=== PATIENT | male | born 1950 | race Caucasian/White ===

== ENCOUNTER 2023-10-16 13:48 | Outpatient (AMB) | payer MEDICARE, SELFPAY ==
--- NOTE | 2023-10-16 13:51 | MHC.OFFVIS ---
Intake Vital Signs 10/16/23 13:59 Weight 200 lb BP 132/80 Blood Pressure Location Rt brachial Position Sitting Pulse 80 Intake Visit Reasons: Chronic perforated diverticulitis Intake Note: Patient referred by PCP Dr. Kelley for Chronic perforated diverticulitis. Patient c/o: denies constipation, diarrhea. Abd/pel[place] [facility] [place] On Site Services Specialist Required: No Accompanied by: Spouse Allergies No Known Allergies Allergy (Verified 10/16/23 13:55) HPI HPI Comments History of Present Illness Details Patient presents with because of chronic diverticulitis symptoms. He has had approximately 15 years of on and off bouts of diverticulitis. He has had 3 [address] admissions for this at [facility]. Approximately 5 weeks ago patient had a CT scan of the abdomen pelvis which demonstrated localized perforated diverticulitis with contained collection. In the meantime, patient has had improvement of his symptoms. He has tolerating a diet. He is passing flatus and stool. He thinks the caliber of his stool may have decreased in size. He has not have any symptoms consistent with pneumaturia or fecaluria. 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 No other abdominal surgeries. Patient had colonoscopy approximately 3 years ago at [place]. We will attempt to obtain those results. Chart was reviewed patient evaluated, including September 25 CT scan from normal [facility] Medical History (Updated 10/16/23 @ 13:57 by SOO Mesa) Splenic cyst Right groin hernia Left groin hernia Surgical History (Updated 10/16/23 @ 14:17 by Alfred Crain MD) History of hernia repair Social History (Updated 10/16/23 @ 13:58 by SOO Mesa) Patient Tobacco Use Status: Former Tobacco user Quit Date: working on quiting Physical Exam Vital Signs: Last Vital Signs Pulse 80 10/16/23 13:59 BP 132/80 10/16/23 13:59 GI Other: Abdomen soft. Midline incision/ scar from prior splenectomy. Abdomen otherwise soft and benign. Assessment & Plan Assessment & Plan (1) Hx of diverticulitis of colon: Code(s): Z87.19 - Personal history of other diseases of the digestive system Plan Current plan is to repeat a CT scan approximately 6 weeks from his original to assess the severity or healing process of his perforated diverticulitis. We will also obtain prior colonoscopy results. Patient will see me after the above-mentioned study. All questions answered. Coding Level of Care Code New Pt Level 4 (20738) Diagnoses Hx of diverticulitis of colon Z87.19
[2023-10-16 13:59] VITALS: BP 132/80; PULSE 80
== END 2023-10-16 14:15 | disposition home or self-care (01) ==
PROVIDERS: PCP Internal Medicine; Referring Provider Internal Medicine; Visit Provider Surgery
DX: Z87.19 Personal history of other diseases of the digestive system (principal)
CPT/HCPCS: 99204

== ENCOUNTER → 2023-10-16 13:48 | Outpatient (BNVA) | payer MEDICARE, SELFPAY | PROVIDERS: PCP Internal Medicine; Referring Provider Internal Medicine; Visit Provider Surgery | DX: K57.20 Diverticulitis of large intestine with perforation and abscess without bleeding (principal); Z87.19 Personal history of other diseases of the digestive system | CPT/HCPCS: 99202 ==

== ENCOUNTER 2023-11-05 07:42 | Outpatient (REF) | payer MEDICARE, SELFPAY ==
[2023-11-05 09:43] LABS: Blood Urea Nitrogen 14 mg/dL (9-16); Estimated Glomerular Filt Rate > 60
== END 2023-11-05 07:43 | disposition home or self-care (01) ==
LOC: HO.LAB 07:42
PROVIDERS: Visit Provider Surgery
DX: Z87.19 Personal history of other diseases of the digestive system (principal)
CPT/HCPCS: 36415; 82565; 84520

== ENCOUNTER 2023-11-06 11:43 | Outpatient (REF) | payer MEDICARE, SELFPAY ==
--- NOTE | ~2023-11-06 | CT_ITS ---
EXAMINATION: CT ABDOMEN AND PELVIS WITH CONTRAST CLINICAL INFORMATION: Follow-up perforated diverticulitis with abscess. 6 weeks postop. COMPARISON: None available. TECHNIQUE: Multidetector volumetric images were obtained from the superior aspect of the liver through the pubic symphysis following administration 85 mL of Omnipaque 350 intravenous contrast. Sagittal and coronal reformatted images were obtained on the technologist's workstation. Oral contrast: No This CT examination was performed using dose optimization techniques as appropriate, variously including the following: *Automated exposure control *Adjustment of mA and/or kV according to patient size (this includes techniques or standardized protocols for targeted exams where dose is matched to indication/reason for exam; i.e. extremities or head) *Use of iterative reconstruction technique DLP: 415 mGy-cm FINDINGS: LUNG BASES: No pleural or pericardial effusion. LIVER, GALLBLADDER, AND BILIARY TREE: The liver is normal in size and contour. Scattered hepatic cysts requiring no further imaging follow-up. Biliary ductal dilatation is present. The gallbladder is unremarkable with no evidence of radiopaque gallstones, gallbladder wall thickening, or obvious pericholecystic inflammatory changes. PANCREAS: No ductal dilatation. SPLEEN: Not enlarged. ADRENAL GLANDS: Nodular thickening of the adrenal glands. KIDNEYS AND URETERS: The kidneys are symmetric in size and enhancement. Left renal cysts for carcinoma further imaging follow-up. 2 mm nonobstructing calculus midpole right kidney. Upper to midpole nonobstructing left renal calculi with the largest measuring 1.1 x 0.9 cm. No hydronephrosis or perinephric fluid collection. BLADDER: Mild diffuse bladder wall thickening. No bladder calculus. There is a 1.2 x 0.9 cm calculus impacted in the right ureterovesical junction. Multiple bladder diverticula. GASTROINTESTINAL TRACT: Marked irregular wall thickening of the mid sigmoid colon with evidence of extensive underlying diverticular disease. There is stellate reaction of the surrounding fat possibly representing scarring. Mild pericolonic stranding. Possible intramural abscess measuring approximately 3.3 x 1.2 x 1.9 cm. No evidence of fistulous communication. No small bowel obstruction. Appendix is within normal limits. The stomach is underdistended. All ABDOMINAL WALL: No significant hernia is appreciated. LYMPH NODES: No bulky lymphadenopathy. VASCULAR: Normal caliber abdominal aorta. PELVIC VISCERA: Unremarkable. OSSEOUS STRUCTURES: No destructive bone lesions. CT/CT abdomen pelvis w IV con IMPRESSION: Marked irregular wall thickening of the sigmoid colon with possible intramural abscess measuring 3.2 x 1.2 x 1.9 cm. There is stellate reaction within the surrounding fat possibly representing scarring. Evaluation is limited by the lack of comparison studies. Nephrolithiasis without hydronephrosis. 1.2 x 0.9 cm calculus impacted in the right ureterovesical junction. Mild bladder wall thickening. Multiple bladder diverticula.
[2023-11-06] MEDS: iohexoL 350 MG/ML 100 ML INFUS..BTL IV (14:26)
[2023-11-06] MEDS: Barium Sulfate Oral (Vanilla) 450 ML ORAL.SUSP 900 ML PO (14:27)
== END 2023-11-06 11:44 | disposition home or self-care (01) ==
LOC: HO.CT 11:43
PROVIDERS: PCP Internal Medicine; Visit Provider Surgery
DX: Z87.19 Personal history of other diseases of the digestive system (principal)
CPT/HCPCS: 74177; Q9967

== ENCOUNTER 2023-11-13 13:00 | Outpatient (AMB) | payer MEDICARE, SELFPAY ==
--- NOTE | 2023-11-13 13:08 | A.OFFVIS_ITS ---
Intake Vital Signs 11/13/23 13:13 Weight 200 lb BP 146/87 H Blood Pressure Location Rt brachial Position Sitting Pulse 76 Intake Visit Reasons: chronic diverticulitis symptoms, CT results Intake Note: Patient here to f/u diverticulitis. Would like to discuss abd ct results. Previous colonoscopy at [facility]. Operative report available for review. Patient c/o: reports no changes or concerns. Roll On Worker Required: No Accompanied by: Spouse Allergies No Known Allergies Allergy (Verified 11/13/23 13:12) Medication List - Last Reconciled 11/13/23 by Alfred Crain MD pantoprazole 40 mg PO DAILY HPI HPI Comments History of Present Illness Details Patient presents with for follow-up. CT scan demonstrates improving diverticulitis. Patient is completely asymptomatic. He has tolerating a diet. Having regular bowel habits. He does have history of occasional constipation. Patient had colonoscopy on 06/16 which only demonstrated diverticular disease. This was done at [facility]. Patient has had prior exploratory laparotomy for a splenic issue in . He has had 3 inguinal hernia repairs. [facility] Medical History Splenic cyst Right groin hernia Left groin hernia Surgical History History of hernia repair (06/28/22) Social History Patient Tobacco Use Status: Former Tobacco user Quit Date: working on quiting Physical Exam Vital Signs: Last Vital Signs Pulse 76 11/13/23 13:13 BP 146/87 H 11/13/23 13:13 Chest Other: Chest breath sounds bilaterally, HS 1 in 2 GI Other: Abdomen is soft. Laparotomy scar well healed. Abdomen otherwise benign Assessment & Plan Assessment & Plan (1) Hx of diverticulitis of colon: Code(s): Z87.19 - Personal history of other diseases of the digestive system (2) Diverticulitis of sigmoid colon: Code(s): K57.32 - Diverticulitis of large intestine without perforation or abscess without bleeding Plan Patient and significant other would like for him to undergo elective resection for his recurrent sigmoid diverticulitis. Risks, benefits, alternatives of the procedure, exploratory laparotomy, sigmoid resection were extensively reviewed and included but not limited to bleeding, infection, recurrence of disease, numbness, pain, scarring, possible diversion ostomy and the patient wishes to proceed. All questions answered. Arrangements were made for this. Patient will undergo bowel prep with oral antibiotics day prior Coding Level of Care Code Est Pt Level 5 (61691) Diagnoses Hx of diverticulitis of colon Z87.19 Diverticulitis of sigmoid colon K57.32
[2023-11-13 13:13] VITALS: BP 146/87; PULSE 76
== END 2023-11-13 13:35 | disposition home or self-care (01) ==
PROVIDERS: PCP Internal Medicine; Visit Provider Surgery
DX: Z87.19 Personal history of other diseases of the digestive system (principal); K57.32 Diverticulitis of large intestine without perforation or abscess without bleeding
CPT/HCPCS: 99214

== ENCOUNTER → 2023-11-13 13:00 | Outpatient (BNVA) | payer MEDICARE, SELFPAY | PROVIDERS: PCP Internal Medicine; Visit Provider Surgery | DX: K57.32 Diverticulitis of large intestine without perforation or abscess without bleeding (principal); Z87.19 Personal history of other diseases of the digestive system | CPT/HCPCS: 99212 ==

== ENCOUNTER 2023-11-26 08:47 | Outpatient (AMB) | payer MEDICARE, SELFPAY ==
--- NOTE | 2023-11-26 08:51 | A.OFFVIS_ITS ---
Intake Visit Reasons: Large distal right ureteric stone Intake Note: New Patient is Present for Ureteric Stone Urology Medication: None Antibiotic Allergies:None Blood Thinners:None Patient states he had kidney stone 6 months ago Allergies No Known Allergies Allergy (Verified 11/26/23 08:54) HPI Comments Details: Jose Alejandro is a pleasant male. He is a patient of Dr. Kelley. He is seen for the following urologic conditions - nephrolithiasis Here for assessment of recently evaluated distal right ureteric stone Planned upcoming diverticular surgery Nephrolithiasis Recurrent Imaging - 10/19 CT 1.2 x 0.9 cm calculus impacted in the right ureterovesical junction, left stone 8 mm Recommend intervention with ureteroscopy laser lithotripsy PFSH Medical History Splenic cyst Right groin hernia Left groin hernia Surgical History History of hernia repair (06/28/22) Social History Patient Tobacco Use Status: Former Tobacco user Quit Date: working on quiting Review of Systems Const Denies chills and Denies fever(s) Card Reports no additional complaints and Denies syncope Resp Denies cough GI Denies abdominal pain and Denies heartburn Reports as per HPI and Denies change in libido Neuro Denies syncope Psych Denies change in libido Endo Denies change in libido Physical Exam Const General: cooperative, healthy appearing, comfortable and no acute distress Orientation/consciousness: patient oriented x3 HEENT Face and sinus: Yes normal facial exam Mouth: moist mucous membranes Neck Neck: Yes normal visual inspection, Yes full ROM and Yes trachea midline Chest Chest palpation & inspection: normal inspection of the chest Resp Effort & Inspection: normal respiratory effort, able to speak in complete sentences and no respiratory distress GI Inspection: Yes normal to inspection Back/Spine/Pelvis Cervical Spine: normal cervical lordosis Thoracic/Lumbar Spine: thoracic and lumbar spine normal to inspection Skin General skin exam: no rashes or lesions noted Neuro General: patient oriented x3, gait normal, tone normal and moves all extremities Extrem General: Yes normal to inspection and Yes capillary refill normal Assessment & Plan Assessment & Plan (1) Nephrolithiasis: Code(s): N20.0 - Calculus of kidney Category: Medical Plan Ureteroscopy We discussed the nature of the decision and reasonable alternatives for performing ureteroscopy. Options such as medical therapy were discussed. Interventions include chemical dissolution, ESWL, ureteroscopy with laser lithotripsy and stent placement, PCNL. The relative uncertainties and benefits related to each alternate procedure were adequately discussed. General surgical risks including, but not limited to - pain, bleeding, infection, myocardial infarction, pulmonary embolus, deep vein thrombosis and cerebrovascular accident which may result in further hospitalization were discussed. Full disclosure of the procedure as well as all major risks, benefits and complications were discussed including but not limited to damage to the urethra, bladder and kidney infection, damage to the ureter, stent migration or malposition, scarring to the renal pelvis, remnant stone fragments, subsequent stone passage with need for secondary procedures. The overall secondary procedure rate is approximately 10-15%. The overall clearance rate is approximately 90-95%. Success of the procedure in the short-term does not necessarily guarantee that long-term success will be maintained. Suitable follow up will need to be maintained. The patient showed understanding of discussion and wishes to proceed with - cystoscopy, retrograde, ureteroscopy, possible lithotripsy/stone basketing and stent on the right side Patient Instructions: Imaging studies, laboratory and physical exam results were discussed and reviewed in detail. No major barriers to patient understanding were identified. An opportunity to ask questions regarding the treatment plan was provided. All questions were answered. The patient expressed understanding and agreement with the above treatment plan. The patient is aware they should contact our office by phone for worsening of their current condition or the appearance of new urologic symptoms. Compliance is encouraged with any medications and followup testing that is ordered. It is a privilege to participate in the urologic care of your patient. If you have any questions or concerns regarding treatment for the above conditions, or other urologic issues, please do not hesitate to contact me. The office telephone contact is [phone]. This note is constructed using voice recognition software. While every effort has been made to ensure accuracy zipper slide attacher errors may have been included. Yours sincerely, Dr Thomas Sanon MD, [facility] - Urology Providers of Expert, Compassionate Care for the Genitourinary System Coding Level of Care Code New Pt Level 4 (57050) Complex EM visit Add On G2211 Diagnoses Nephrolithiasis N20.0
== END 2023-11-26 09:16 | disposition home or self-care (01) ==
PROVIDERS: PCP Internal Medicine; Visit Provider Urology
DX: N20.0 Calculus of kidney (principal)
CPT/HCPCS: 99204; G2211

== ENCOUNTER → 2023-11-26 08:47 | Outpatient (BNVA) | payer MEDICARE, SELFPAY | PROVIDERS: PCP Internal Medicine; Visit Provider Urology | DX: N20.0 Calculus of kidney (principal) | CPT/HCPCS: 99202 ==

== ENCOUNTER 2023-12-02 11:16 | Day surgery (SDC) | payer MEDICARE, SELFPAY ==
--- NOTE | 2023-11-29 10:53 | HO.ANESPROP2 ---
Documented by User: Charito Bojorquez NP 11/29/23 10:54 HPI - Anesthesia Eval Consult details Narrative: 73yo M for Cystoscopy, Ureteroroscopy, Retro, Laser with stent placement PMFSH Active Problems Active Problems: All Active Problems Nephrolithiasis (Acute) Diverticulitis of sigmoid colon (Acute) Hx of diverticulitis of colon (Acute) Past Medical History Medical History Heartburn Splenic cyst Right groin hernia Left groin hernia Surgical History Surgical History Hx of right inguinal hernia repair History of hernia repair (06/28/22) Social History Social History Patient Tobacco Use Status: Current everyday Tobacco user Tobacco use type: Cigarette Cigarettes Per Day: 2 Use of substances other than those prescribed or required for medical reasons: No Are you DNR?: No Advance Directives: No Advance Directives Information Provided: Yes Meds Allergies Allergy/AdvReac Type Severity Reaction Status Date / Time No Known Allergies Allergy Verified 12/02/23 13:34 Home Medications ?Medication ?Instructions ?Recorded ?Confirmed ?Last Taken ?Type pantoprazole 40 mg tablet,delayed 40 mg PO DAILY 10/16/23 12/02/23 Unknown History release Exam Narrative Narrative: EKG 08/2023 SR with PVC Assessment and Plan Assessment Anesthesia Assessment: Chart Reviewed Documented by User: Marie Varner MD 12/02/23 15:01 PMFSH Past Medical History Medical History Heartburn Splenic cyst Right groin hernia Left groin hernia Surgical History Surgical History Hx of right inguinal hernia repair History of hernia repair (06/28/22) History of Problems with Anesthesia: No Social History Social History Patient Tobacco Use Status: Current everyday Tobacco user Tobacco use type: Cigarette Cigarettes Per Day: 2 Use of substances other than those prescribed or required for medical reasons: No Are you DNR?: No Advance Directives: No Advance Directives Information Provided: Yes Meds Allergies Allergy/AdvReac Type Severity Reaction Status Date / Time No Known Allergies Allergy Verified 12/02/23 13:34 Home Medications ?Medication ?Instructions ?Recorded ?Confirmed ?Last Taken ?Type pantoprazole 40 mg tablet,delayed 40 mg PO DAILY 10/16/23 12/02/23 Unknown History release Exam Airway Mallampati Class: III TM Dist: >3cm Neck ROM: Full Loose/Missing/Broken Teeth: No Heart: RRR Lungs: CTA Assessment and Plan Assessment Anesthesia Assessment: Anesthesia Plan Discussed Final Anesthetic Review History of Problems with Anesthesia: No NPO: Yes ASA Class: II Final Preanesthetic Review: Meds/Allgs Chart Reviewed, Consent Obtained/Reviewed and Anes Risks/Benef Reviewed Patient Risk: Low Procedure Risk: Low Anesthetic Plan Anesthetic Plan: GA Disposition: Standard PACU
[2023-12-02] VITALS (7 sets, daily range): BP systolic 118–145; BP diastolic 57–84; PULSE 77–89; RESP 12–19; TEMP 36.3–36.6; O2SAT 93–98; BMI 26.0
--- NOTE | ~2023-12-02 | FL_ITS ---
EXAMINATION: Intraoperative fluoroscopy CLINICAL INFORMATION: Cystoscopy, stent, laser COMPARISON: CT abdomen pelvis 11/06/2023 TECHNIQUE: Intraoperative fluoroscopy was provided for use by Dr. Sanon. A total of 3 images were saved to PACS. A radiologist was not present during imaging. Today's dictation is only for administrative purposes to document intraoperative fluoroscopic usage. TOTAL FLUOROSCOPIC TIME: 27 seconds DAP: 9.22 mGy FL/FL guidance in OR FINDINGS~\^^ Intraoperative fluoroscopy provided for use by Dr. Sanon. Please see operative note for detailed findings.
[2023-12-02] MEDS: Lactated Ringers 1,000 ML 100 ML IVCONT (13:51)
--- NOTE | 2023-12-02 15:31 | MHC.SHP ---
Pre-Procedural Eval Section A - 24 Hr Update-Section A only Date of Service: 12/02/23 The patient is an INPATIENT: No Changes since office visit: No Cold of Flu in the past 2 weeks, No New Medical Problems, No Changes in Medication and No Patient answered all questions The patient has been examined within 24 hours of the surgical procedure. The History & Physical has been completed within 30 days and I have reviewed it.: Yes Section B - Complete if H&P > 30 days Chief Complaint: Calculus of kidney Allergies: Allergies Allergy/AdvReac Type Severity Reaction Status Date / Time No Known Allergies Allergy Verified 12/02/23 13:34 Review of Systems Sugical H&P ROS: Negative: Constitution, Cardiovascular, Respiratory, Neurological, Psychiatric, Hem-Onc, Allergic/Immunologic, Gastrointestinal, Genitourinary, Musculoskeletal, Integumentary, Endocrine and Eyes/Ears/Nose/Throat Exam Surgical H&P Exam: Normal: HEENT, Normal: Heart, Normal: Lungs, Normal: Extremities, Normal: Abdomen, Normal: Skin and Normal: Neurological Plan Diagnosis/Plan: Unchanged (Distal right ureteric stones, cystoscopy, right retrograde, right ureteroscopy with laser lithotripsy and stent) I have reviewed the history and physical and performed a pertinent physical examination on my patient. No changes have occurred unless specified. Time Spent With Patient Time: Total time managing care of this patient today ____ minutes.
--- NOTE | 2023-12-02 16:51 | P.OP_ITS ---
Operative Note Operative Note Date of Service: 12/02/23 Narrative: PreOperative Diagnosis: Distal right ureteric stones x 2 - 10 mm and 5 mm Post Operative Diagnosis: Distal right ureteric stones Procedure: - cystoscopy, right retrograde - right dilatation of ureteric orifice under fluoroscopy - right ureteroscopy, laser lithotripsy, stone basketing - modifier 22 100% longer than typical 45 minutes - right stent placement Surgeon: Dr Thomas Sanon Anesthesia: General Indications for procedure: Distal right ureteric stone with proximal hydroureteronephrosis detected during evaluation for colorectal cancer Procedure: After informed consent was verified the patient was brought to the operating room and placed in a supine position. Anesthesia was administered per protocol. The patient was placed in a modified dorsal lithotomy position and prepped and draped in a sterile fashion. Safety pause time-out and side of surgery were confirmed. Images were available for review. Antibiotic administration confirmed. A 22 Palestinian cystoscope was inserted per urethra. The urethra was without aabnormality. The bladder was normal in its entirety. Both ureteric orifices were seen in normal position. The right ureteric orifice was cannulated and a retrograde examination was performed. Filling defects seen in distal right ureter with proximal hydroureteronephrosis . A Sensor guidewire was placed up to the level of the renal pelvis under fluoroscopy. The rigid cystoscope was removed. A Denzel dilator was placed over the Sensor guidewire and used to dilate the ureteric orifice under fluoroscopy. The dilator was removed. The semi rigid ureteral scope was placed alongside the Sensor guidewire. Using a 365 micro holmium laser fiber the stone was broken into small pieces using a combination of hammer and dusting techiques. Stone fragments were removed from the ureter using a 0 tip basket 2.4 Palestinian basket. The stone was extremely hard and took 100% longer than typical for them both to be broken up. This is approximately 40 minutes. Once the fragments were removed a decision was made to place a ureteric stent. Based on the height of the patient a 6 Fr x variable length stent was used. The rigid cystoscope was backloaded over the wire and advanced into the bladder. A 6 Palestinian by variable length cm double-J stent was placed into the renal pelvis and bladder under a combination of fluoroscopy and direct visualization. The bladder was emptied. The patient tolerated the procedure well and was extubated in the operating room. They were transferred in stable condition to the recovery area. Pathology: stones Drains: Double J stent as described above
[2023-12-02] MEDS: Phenazopyridine HCL 100 MG TABLET PO (16:59)
[2023-12-24 16:17] LABS: Stone Source RIGHT KIDNEY STONE
== END 2023-12-02 17:39 | disposition home or self-care (01) ==
PROVIDERS: PCP Internal Medicine; Visit Provider Urology
PROC: (CPT 52356; principal; 2023-12-02 13:20)
DX: N13.2 Hydronephrosis with renal and ureteral calculous obstruction (principal); Z87.442 Personal history of urinary calculi; K21.9 Gastro-esophageal reflux disease without esophagitis; Z79.899 Other long term (current) drug therapy; F17.210 Nicotine dependence, cigarettes, uncomplicated; Z98.890 Other specified postprocedural states
CPT/HCPCS: 52356; 82365; 88300; C1758; C1769; C2617; J0131; J1956; J2704; J3010; Q9967

== ENCOUNTER → 2023-12-02 11:16 | Outpatient (BNV) | payer MEDICARE, SELFPAY | PROVIDERS: PCP Internal Medicine; Visit Provider Urology | DX: N20.1 Calculus of ureter (principal) | CPT/HCPCS: 52356; 74420 ==

== ENCOUNTER 2023-12-12 11:46 | Inpatient (IN) | payer MEDICARE, SELFPAY ==
[2023-12-04 13:16] VITALS: BP 139/78; PULSE 82; RESP 20; O2SAT 97; BMI 26.0
--- NOTE | 2023-12-04 13:27 | HO.ANESPROP2 ---
Documented by User: Charito Bojorquez NP 12/10/23 13:53 HPI - Anesthesia Eval Consult details Narrative: 73yo M Left Cystoscopy Ureteral Stent Placement (Dr Sanon), Exploratory Laparotomy,sigmoid resection,lithotomy, Sigmoidoscopy Flexible, 12/11/23 No recent illness, season allergies with nasal spray No CP/SOB with walking/yard work s/p cysto, etc 11/2023 with GA-LMA 4 PVCs with PCP eval. Pt reports resolved palps GERD. PPI controls Smoker. No COPD/inhaler PMFSH Active Problems Active Problems: All Active Problems Nephrolithiasis (Acute) Diverticulitis of sigmoid colon (Acute) Hx of diverticulitis of colon (Acute) Past Medical History Medical History Back pain Seasonal allergic rhinitis Palpitations GERD (gastroesophageal reflux disease) Diverticulitis Nephrolithiasis Splenic cyst Surgical History Surgical History Hx of cystoscopy H/O colonoscopy History of surgery History of left inguinal hernia repair Hx of right inguinal hernia repair History of Problems with Anesthesia: No Social History Social History Are you a primary home health caregiver to a significant other at home: No Do you presently have visiting nurse or other home services: No ( has VNA currently for recent fall) Patient Tobacco Use Status: Current everyday Tobacco user Tobacco use type: Cigarette Cigarettes Per Day: 5 Years Smoked: 50 Smoked in Last 30 Days: Yes Use of substances other than those prescribed or required for medical reasons: No Have you been hit, kicked, punched, or otherwise hurt by someone within the past year? If so, by whom?: No Are you DNR?: No Advance Directives Information Provided: Yes (as above noted) Advance Directives on File: No Recently lost weight without trying: No Eating poorly because of decreased appetite: No Nutrition Risks: No Nutritional Risk Meds Allergies Allergy/AdvReac Type Severity Reaction Status Date / Time No Known Allergies Allergy Verified 12/02/23 13:34 Home Medications ?Medication ?Instructions ?Recorded ?Confirmed ?Last Taken ?Type pantoprazole 40 mg tablet,delayed 40 mg PO QAM 03/20/24 05/08/24 05/15/24 08:30 History release azelastine 137 mcg (0.1 %) nasal 1 - 2 spray intranasal BID 12/04/23 12/04/23 12/11/23 16:00 History spray aerosol Exam Height,Weight and Vital Signs: Height 6 ft 1 in Weight 89.358 kg Last Vital Signs Pulse 82 12/04/23 13:16 Resp 20 12/04/23 13:16 BP 139/78 12/04/23 13:16 Pulse Ox 97 12/04/23 13:16 O2 Del Method Room Air 12/04/23 13:16 Pertinent Lab Results Pertinent Lab Results: Lab Results 12/04/23 12/04/23 Range/Units 13:58 14:00 WBC 9.7 (4.8-10.8) X10*3/uL RBC 4.82 (4.60-5.80) X10*6/uL Hgb 15.2 (14.0-18.0) g/dl Hct 45.2 (42.0-52.0) % MCV 93.8 (80.0-98.0) fL MCH 31.5 (27.0-33.0) pg MCHC 33.6 (31.0-36.0) g/dl RDW 12.2 (11.0-16.0) % Plt Count 275 (160-400) X10*3/uL MPV 10.5 (9.4-12.4) fL Absolute Nucleated RBC 0.000 (0.0-0.012) X10*3/uL Nucleated RBC % (auto) 0.0 (0.0-0.2) /100WBC Sodium 140 (135-145) mmol/L Potassium 4.1 (3.3-5.1) mmol/L Chloride 105 (96-108) mmol/L Carbon Dioxide 27 (22-29) mmol/L Anion Gap 12 (12-20) BUN 14 (9-16) mg/dL Creatinine 0.86 (0.5-1.4) mg/dL Estim Creat Clear Calc 86.4 Estimated GFR > 60 Random Glucose 87 (60-115) mg/dL Calcium 9.6 (8.4-10.2) mg/dL Blood Type A Positive Antibody Screen NEGATIVE Narrative Narrative: EKG 08/2023 SR with PVC Airway Mallampati Class: II TM Dist: >3cm Neck ROM: Full Loose/Missing/Broken Teeth: Yes (Molars pulled, crowned molars) and No Heart: RRR Lungs: CTAB Assessment and Plan Assessment Anesthesia Assessment: Anesthesia Plan Discussed, Smoking Cess. Discussed and PAT Visit Final Anesthetic Review History of Problems with Anesthesia: No Documented by User: Petros Yates MD 12/12/23 07:31 [facility] Past Medical History Medical History Back pain Seasonal allergic rhinitis Palpitations GERD (gastroesophageal reflux disease) Diverticulitis Nephrolithiasis Splenic cyst Family History Family history of problems with anesthesia: No Surgical History Surgical History Hx of cystoscopy H/O colonoscopy History of surgery History of left inguinal hernia repair Hx of right inguinal hernia repair Social History Social History Are you a primary home health caregiver to a significant other at home: No Do you presently have visiting nurse or other home services: No ( has VNA currently for recent fall) Patient Tobacco Use Status: Current everyday Tobacco user Tobacco use type: Cigarette Cigarettes Per Day: 5 Years Smoked: 50 Smoked in Last 30 Days: Yes Use of substances other than those prescribed or required for medical reasons: No Have you been hit, kicked, punched, or otherwise hurt by someone within the past year? If so, by whom?: No Are you DNR?: No Advance Directives Information Provided: Yes (as above noted) Advance Directives on File: No Recently lost weight without trying: No Eating poorly because of decreased appetite: No Nutrition Risks: No Nutritional Risk Meds Allergies Allergy/AdvReac Type Severity Reaction Status Date / Time No Known Allergies Allergy Verified 12/02/23 13:34 Home Medications ?Medication ?Instructions ?Recorded ?Confirmed ?Last Taken ?Type pantoprazole 40 mg tablet,delayed 40 mg PO QAM 10/16/23 12/04/23 12/11/23 08:30 History release azelastine 137 mcg (0.1 %) nasal 1 - 2 spray intranasal BID 12/04/23 12/04/23 12/11/23 16:00 History spray aerosol Assessment and Plan Assessment Anesthesia Assessment: Chart Reviewed Final Anesthetic Review Family History of Problems with Anesthesia: No NPO: Yes ASA Class: II Final Preanesthetic Review: No Changes in Pt Med Stat, Meds/Allgs Chart Reviewed, Consent Obtained/Reviewed and Anes Risks/Benef Reviewed Patient Risk: Intermediate Procedure Risk: Intermediate Anesthetic Plan Anesthetic Plan: GA Disposition: Standard PACU
[2023-12-04 14:13] LABS: Hematocrit 45.2 % (42.0-52.0); Hemoglobin 15.2 g/dl (14.0-18.0); Mean Corpuscular HGB Conc 33.6 g/dl (31.0-36.0); Mean Corpuscular Hemoglobin 31.5 pg (27.0-33.0); Mean Corpuscular Volume 93.8 fL (80.0-98.0); Mean Platelet Volume 10.5 fL (9.4-12.4); Platelet Count 275 X10*3/uL (160-400); Red Blood Count 4.82 X10*6/uL (4.60-5.80); Red Cell Distribution Width 12.2 % (11.0-16.0); White Blood Count 9.7 X10*3/uL (4.8-10.8)
[2023-12-04 15:05] LABS: Anion Gap 12 (12-20); Blood Urea Nitrogen 14 mg/dL (9-16); Calcium 9.6 mg/dL (8.4-10.2); Carbon Dioxide 27 mmol/L (22-29); Chloride 105 mmol/L (96-108); Creatinine Clr Calc Pharmacy 86.4; Estimated Glomerular Filt Rate > 60; Glucose Random 87 mg/dL (60-115); Potassium 4.1 mmol/L (3.3-5.1); Sodium 140 mmol/L (135-145)
--- NOTE | 2023-12-11 10:29 | MHC.SHP ---
Pre-Procedural Eval Section A - 24 Hr Update-Section A only Date of Service: 12/11/23 The patient is an INPATIENT: Yes Changes since office visit: No Cold of Flu in the past 2 weeks, No New Medical Problems, No Changes in Medication and No Patient answered all questions Section B - Complete if H&P > 30 days Chief Complaint: Diverticulitis of large intestine,hx of disease Allergies: Allergies Allergy/AdvReac Type Severity Reaction Status Date / Time No Known Allergies Allergy Verified 12/02/23 13:34 Plan I have reviewed the history and physical and performed a pertinent physical examination on my patient. No changes have occurred unless specified. Time Spent With Patient Time: Total time managing care of this patient today ____ minutes.
[2023-12-12] VITALS (12 sets, daily range): BP systolic 97–132; BP diastolic 55–72; PULSE 51–87; RESP 15–18; TEMP 36.2–36.6; O2SAT 92–98
--- NOTE | ~2023-12-12 | XR_ITS ---
EXAMINATION: XR CHEST CLINICAL INFORMATION: Shortness of breath desaturation COMPARISON: CT chest from 11/06/2023 TECHNIQUE: Frontal view of the chest was obtained. FINDINGS: Bibasilar streaky radiopacities may reflect atelectasis versus evolving infectious/inflammatory etiology. No pneumothorax. Trachea is midline. Cardiomediastinal silhouette is not enlarged. No large osseous structures are intact. Soft tissues are unremarkable. XR/XR chest 1V IMPRESSION: Bibasilar streaky radiopacities may reflect atelectasis versus evolving infectious/inflammatory etiology.
[2023-12-12] MEDS: Albuterol Sulfate (0.083%) 2.5 MG/3 ML VIAL.NEB INHALE (06:51)
[2023-12-12] MEDS: Lactated Ringers 1,000 ML 100 ML IVCONT ×2 (06:53→15:09)
--- NOTE | 2023-12-12 08:29 | MHC.SHP ---
Pre-Procedural Eval Section A - 24 Hr Update-Section A only Date of Service: 12/12/23 The patient is an INPATIENT: No Changes since office visit: No Cold of Flu in the past 2 weeks, No New Medical Problems, No Changes in Medication and No Patient answered all questions The patient has been examined within 24 hours of the surgical procedure. The History & Physical has been completed within 30 days and I have reviewed it.: No Section B - Complete if H&P > 30 days Chief Complaint: Diverticulitis of large intestine,hx of disease Allergies: Allergies Allergy/AdvReac Type Severity Reaction Status Date / Time No Known Allergies Allergy Verified 12/02/23 13:34 Plan Diagnosis/Plan: Unchanged (cystoscopy, left ureteric catheter placement) I have reviewed the history and physical and performed a pertinent physical examination on my patient. No changes have occurred unless specified. Time Spent With Patient Time: Total time managing care of this patient today ____ minutes.
--- NOTE | 2023-12-12 12:15 | W.PM.OPN ---
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 Sanon's dictation/urology Surgeon: [] [facility] Director: [] Melissa Type of Anesthesia: [] General Indication for surgery: [] Significant symptomatic sigmoid diverticular disease. Intraoperative findings demonstrated profound and extensive cicatrization and scarring of the phlegmonous sigmoid colon to the lateral pelvic wall and anterior retroperitoneum. Patient had prior exploratory laparotomy in the past and had marked omental and small bowel adhesions to the abdominal wall necessitating enterolysis to gain entry into the abdominal cavity. Retroperitoneum was never breached and left ureteral catheter was out of the operative field. Findings: [] Patient brought to the operating room, placed on operative table in supine position, after an adequate level of general anesthesia was induced, patient was placed in lithotomy position and ureteral stent placement per Dr. Sanon's dictation. The abdomen and peritoneum were prepped and draped in usual sterile fashion. Using a lower midline incision, this carried through the down through skin, subcutaneous tissue, and linea alba. Posterior fascia and peritoneum were opened and extended along the length of the incision using Bovie. Packs and retractors were placed to enhance exposure. Findings were as noted above. Enterolysis and adhesionolysis were required to gain entry into the abdominal cavity. A phlegmonous mass of sigmoid colon which was curled upon itself and adherent to the lateral pelvic wall and retroperitoneum was identified. The normal/not inflamed left/descending colon entering this mass was from it and the proximal bowel was transected using a CHERRIE stapler here. Next using combination of blunt, sharp, and Bovie dissection, the mass was painstakingly dissected off the lateral pelvic side wall and retroperitoneum. During the dissection, the mesentery to this sigmoid process was taken down with a combination of double firing of ligature device and suture ligatures of 0 silk suture. Once adequately mobilized the distal colon was approached at the rectosigmoid junction. The bowel was transected here using a stapler device. Completion of takedown of the mesenteric supply to this phlegmonous mass was accomplished again using double firing of ligature device and 0 silk suture ligatures and specimen sent to pathology . In order to achieve a tension-free anastomosis, the lateral peritoneal reflection and takedown of the splenic flexure was required for adequate tension free length. Once this was accomplished, a pursestring device was placed in the proximal bowel and sequentially dilated. A 28 size EEA anvil was placed into the proximal colon and pursestring suture secured. Trans anal placement of the EEA device was performed and advanced through the rectal stump and connected to the proximal anvil. Stapler was closed, secured, uneventfully fired, and two complete donuts were obtained. Abdominal cavity was filled with saline and proximal left colon digitally occluded and air was insufflated in to the rectal stump with proctoscope through the anastomosis with no extravasation of air. Abdominal cavity was copiously irrigated and secured hemostasis. Because of the marked inflammation and difficult dissection, was decided to perform a proximal loop ileostomy to protect the anastomosis. Through a right lower quadrant muscle splitting incision, distal ileum was brought out the through this and a securing giselle placed. A Nicolas-Reich drain was left in the pelvis. This entered abdominal cavity through a left lower quadrant stab wound incision and was secured to the skin using 2-0 nylon. Midline abdominal wound was closed with mass closure fasting using 1. Looped PDS. Skin was closed using interrupted inverted dermal 3-0 Vicryl sutures followed by Steri-Strips and sterile dressings. Transverse enterotomy was made for the loop ileostomy and this was matured using interrupted transmural to dermal 3-0 Vicryl sutures. Ostomy was pink and viable at completion. Ostomy appliance was placed. Midline incision was infiltrated with 0.5% Marcaine at completion of the procedure. Sponge, needle, and instrument counts were reported correct. Patient tolerated the procedure well and emerged from anesthesia stable condition. EBL minimal
--- NOTE | 2023-12-12 12:21 | PHA.MEDREC ---
Pharmacy Consult ? Medication Reconciliation Pharmacy has completed the medication reconciliation. Reviewed med rec done by nursing (Sherita).
[2023-12-12] MEDS: HYDROmorphone HCl 1 MG/ML SYRINGE 0.5 MG SUBCUT (13:49)
[2023-12-12 14:21] LABS: Creatinine Clr Calc Pharmacy 80.8; Estimated Glomerular Filt Rate > 60
--- NOTE | 2023-12-12 15:00 | W.PM.OPN ---
Operative Note Operative Note Date of Service: 12/12/23 Narrative: PreOperative Diagnosis: Sigmoid diverticulitis Post Operative Diagnosis: Sigmoid diverticulitis Procedure: Cystoscopy with left ureteric catheter placement, Saleem catheter placement Surgeon: Dr Thomas Sanon Anesthesia: General Indications for procedure: Patient undergoing sigmoid diverticula procedure with General surgery. Requested ureteric catheters in order to protect ureter during procedure. Has right ureteric stent in place for kidney stone Procedure completed last week. Procedure: After informed consent was verified the patient was brought to the operating room and placed in a supine position. Anesthesia was administered per protocol. The patient was prepped and draped in a sterile fashion. Safety pause time-out was performed. Antibiotics being given. Using disposable cystoscope the bladder was entered. Stent seen emerging from right ureteric orifice. Left ureteric orifice located. Sensor guidewire placed through scope into left ureteric orifice and advanced until resistance met. Scope backed out from bladder. 4 [place]awk open-ended ureteric catheter placed over the wire up to the level of the renal pelvis. This will remain in place through surgery. Using Angiocath back end of ureteric catheter was placed through Saleem catheter lumen and internalized into Saleem catheter. Saleem catheter bag was reconnected. The stent was then attached the Saleem catheter with 2-0 silk ties. At this point scrotum was elevated with suture bilaterally in order to expose perirectal area Please see Dr. Crain's dictation for for the findings during procedure. Pathology: Drains:
[2023-12-12] MEDS: Acetaminophen 1,000 MG/100 ML PIGGYBACK 400 MG IV ×2 (15:08→20:35)
[2023-12-12] MEDS: 0.9 % Sodium Chloride Flush 3 ML SYRINGE IVFLUSH (15:09)
[2023-12-12] MEDS: Tamsulosin HCL 0.4 MG CAPSULE PO (20:34)
[2023-12-13] MEDS: Lactated Ringers 1,000 ML 100 ML IVCONT ×3 (00:02→17:55)
[2023-12-13] MEDS: Acetaminophen 1,000 MG/100 ML PIGGYBACK 400 MG IV ×4 (03:04→20:55)
[2023-12-13 03:11] VITALS: BP 121/70; PULSE 78; RESP 18; TEMP 36.3; O2SAT 93
[2023-12-13] MEDS: Omeprazole 40 MG CAPSULE.DR PO (05:30)
[2023-12-13] MEDS: oxyCODONE HCl Immed Release 5 MG TABLET PO ×2 (05:36→11:37)
[2023-12-13 06:26] LABS: MANUAL DIFF FLAG NO
[2023-12-13 06:32] LABS: Basophils Percent Auto 0.2 % (0-2); Eosinophils Percent Auto 0.1 % (0-4); Hemoglobin 13.3 g/dl (14.0-18.0); Imm Gran Abs Auto 0.09 X10*3/uL (0.00-0.03); Imm Gran Pct Auto 0.5 % (0.0-0.4); Lymphocytes Absolute Auto 1.3 X10*3/uL (1.2-4.9); Lymphocytes Percent Auto 7.9 % (20-40); Mean Corpuscular HGB Conc 34.1 g/dl (31.0-36.0); Mean Corpuscular Hemoglobin 31.8 pg (27.0-33.0); Mean Corpuscular Volume 93.3 fL (80.0-98.0); Mean Platelet Volume 11.4 fL (9.4-12.4); Monocytes Absolute Auto 0.7 X10*3/uL (0.1-1.2); Monocytes Percent Auto 4.1 % (2-11); Neutrophils Absolute Auto 14.6 x10*3/uL (2.0-8.3); Neutrophils Percent Auto 87.2 % (45-73); Platelet Count 241 X10*3/uL (160-400); Red Blood Count 4.18 X10*6/uL (4.60-5.80); Red Cell Distribution Width 12.4 % (11.0-16.0); White Blood Count 16.8 X10*3/uL (4.8-10.8)
[2023-12-13 06:51] LABS: Anion Gap 13 (12-20); Blood Urea Nitrogen 11 mg/dL (9-16); Calcium 8.5 mg/dL (8.4-10.2); Carbon Dioxide 22 mmol/L (22-29); Chloride 104 mmol/L (96-108); Creatinine Clr Calc Pharmacy 97.8; Estimated Glomerular Filt Rate > 60; Glucose Random 123 mg/dL (60-115); Sodium 135 mmol/L (135-145)
[2023-12-13 07:46] VITALS: BP 147/73; PULSE 76; RESP 20; TEMP 36.9; O2SAT 94
[2023-12-13 08:17] VITALS: PULSE 80; O2SAT 92
--- NOTE | 2023-12-13 08:34 | PM.PNGS ---
Subjective Subjective Date of Service: 12/13/23 Interval history: Sore this morning at incision. Tolerating clear liquids. Denies nausea. Has not been OOB yet. Physical Exam Vital Signs: Vital Signs: Last Vital Signs Temp 98.5 F 12/13/23 07:46 Pulse 80 12/13/23 08:17 Resp 20 12/13/23 07:46 BP 147/73 H 12/13/23 07:46 Pulse Ox 92 12/13/23 08:17 O2 Del Method Room Air 12/13/23 08:17 O2 Flow Rate 2 12/13/23 07:46 BMI result Body Mass Index 26.0 Const: General: comfortable, no acute distress and alert Resp: Effort & Inspection: normal respiratory effort GI: Other: dressings clean and intact mild distention loop ileostomy viable appearing, small amt of bilious output YOVANA output scant, serosanguineous Palpation (GI): Soft to palpation, Tenderness to palpation present (GI) (mild incisional) and no guarding Skin: General skin exam: no rashes or lesions noted and no jaundice Objective Data Active Medications Al Hydroxide/Mg Hydroxide (Magnesium Hydrox/Alum Hydrox 30 Ml Oral.Susp) 30 ml PO Q4H PRN PRN Reason: Heartburn/Nausea Albuterol Sulfate (Albuterol Sulfate (0.083%) 2.5 Mg/3 Ml Vial.Neb) 2.5 mg INHALE ONCE PRN PRN Reason: Shortness of Breath/Wheezing Last Admin: 12/12/23 06:51 Dose: 2.5 mg Documented By: LUIS DANIEL Enoxaparin Sodium (Enoxaparin Sodium 40 Mg/0.4 Ml Syringe) 40 mg SUBCUT Q24H YAKELIN Hydromorphone HCl (Hydromorphone Hcl 1 Mg/Ml Syringe) 0.5 mg SUBCUT Q4H PRN; Protocol PRN Reason: Pain, Severe (Pain Scale 7-10) Last Admin: 12/12/23 13:49 Dose: 0.5 mg Documented By: BEBETO Lactated Ringer's (Lr) 1,000 mls @ 100 mls/hr IVCONT .Q10H YAKELIN Last Admin: 12/13/23 08:20 Dose: 100 mls/hr Documented By: KOBI Acetaminophen (Ofirmev) 1,000 mg in 100 mls @ 400 mls/hr IV Q6H [facility] Last Infusion: 12/13/23 08:20 Dose: Infused Documented By: KOBI Melatonin (Melatonin 3 Mg Tablet) 6 mg PO BEDTIME PRN PRN Reason: Insomnia Omeprazole (Omeprazole 40 Mg Capsule.) 40 mg PO DAILY@0630 [facility] Last Admin: 12/13/23 05:30 Dose: 40 mg Documented By: IMTIAZ Ondansetron HCl (Ondansetron Hcl 4 Mg/2 Ml Vial) 4 mg IVPUSH Q8H PRN PRN Reason: Nausea and Vomiting Oxycodone HCl (Oxycodone Hcl Immed Release 5 Mg Tablet) 5 mg PO Q6H PRN PRN Reason: Pain, Moderate(Pain Scale 4-6) Last Admin: 12/13/23 05:36 Dose: 5 mg Documented By: IMTIAZ Sodium Chloride (0.9 % Sodium Chloride Flush 3 Ml Syringe) 3 ml IVFLUSH QSHIFT [facility] Last Admin: 12/13/23 07:07 Dose: Not Given Documented By: KOBI Non-Admin Reason: IV Running Tamsulosin HCl (Tamsulosin Hcl 0.4 Mg Capsule) 0.4 mg PO BEDTIME [facility] Last Admin: 12/12/23 20:34 Dose: 0.4 mg Documented By: IMTIAZ Labs 12/13/23 05:13 12/13/23 05:13 Labs: Laboratory Results - last 24 hr 12/12/23 12/13/23 13:59 05:13 MCV 93.3 MCH 31.8 MCHC 34.1 RDW 12.4 Plt Count 241 MPV 11.4 Immature Gran % (Auto) 0.5 H Neut % (Auto) 87.2 H Lymph % (Auto) 7.9 L Kenton % (Auto) 4.1 Eos % (Auto) 0.1 Baso % (Auto) 0.2 Lymph # (Auto) 1.3 Kenton # (Auto) 0.7 Eos # (Auto) 0.0 Baso # (Auto) 0.0 Abs Immat Gran (auto) 0.09 H Absolute Neuts (auto) 14.6 H Absolute Nucleated RBC 0.000 Nucleated RBC % (auto) 0.0 Anion Gap 13 Estim Creat Clear Calc 80.8 97.8 Estimated GFR > 60 > 60 Random Glucose 123 H Calcium 8.5 D Procedures Date of Service Date of Service: 12/13/23 Progress Note: A&P Assessment and plan (1) Diverticulitis of sigmoid colon: Status: Acute Plan POD #1 s/p exploratory laparotomy, extensive enterolysis, takedown splenic flexure, sigmoid resection, colo -rectal trans -anal primary anastomosis, proctosigmoidoscopy, diverting loop ileostomy. Doing well post op. VSS. Abd exam benign soft and mildly distended- ileostomy viable appearing with some bilious output. Dressing clean and intact. YOVANA drain serosanguineous. Dc fan and left uteral stent. UOP slightly blood tinged, will monitor. Control pain cntrol, OOB/ambulation and IS use. Cnt clear liquids for now until output increases. Time Spent With Patient Time: Total time managing care of this patient today ____ minutes. Quality Stroke Does the patient have a stroke diagnosis?: No VTE Prior VTE?: No VTE Risk Level:: Surgical - high VTE Device Contraindication: N/A - Device Ordered VTE Drug Contraindication: N/A - Med Ordered
--- NOTE | 2023-12-13 09:50 | MHC.CM.PN ---
pt lives alone is independent has a ride home is not expected gilbert need serviues when dcd dc plan home no servies
[2023-12-13] MEDS: Enoxaparin Sodium 40 MG/0.4 ML SYRINGE SUBCUT (11:37)
--- NOTE | 2023-12-13 11:57 | HO.POSTANES ---
Post Anesthesia Evaluation Post Anesthesia Evaluation Date of Service: 12/13/23 Vital Signs: Vital Signs Temp Pulse Resp BP Pulse Ox O2 Del Method O2 Flow Rate 12/13/23 08:17 80 92 Room Air 12/13/23 07:46 98.5 F 76 20 147/73 H 94 Nasal Cannula 2 12/13/23 03:11 97.3 F 78 18 121/70 93 Room Air Anesthesia: General Endotracheal-GETA Mental Status: Awake Pain Control: Satisfactory Nausea/Vomiting: None Hydration: Adequate Anesthesia-Related Issues: No Anes. Related Issues
--- NOTE | 2023-12-13 15:00 | PC.NURSE ---
Saleem cath removed at 1000, pt toloerated well, stent intact with removal, pt given urinal to void, DTV by 1600. 1500 pt was bladder scanned for 315ml urine and encouraged to ambulate to BR to void, pt able to void 300ml
[2023-12-13] MEDS: HYDROmorphone HCl 1 MG/ML SYRINGE 0.5 MG SUBCUT (15:08)
[2023-12-13 15:11] VITALS: BP 127/64; PULSE 80; RESP 20; TEMP 37.1; O2SAT 93
[2023-12-13 19:26] VITALS: BP 127/63; PULSE 76; RESP 16; TEMP 36.3; O2SAT 94
[2023-12-13] MEDS: Tamsulosin HCL 0.4 MG CAPSULE PO (20:56)
[2023-12-13] MEDS: 0.9 % Sodium Chloride Flush 3 ML SYRINGE IVFLUSH (20:56)
[2023-12-14] VITALS (7 sets, daily range): BP systolic 122–140; BP diastolic 67–86; PULSE 52–87; RESP 16–20; TEMP 36–36.8; O2SAT 92–95
--- NOTE | 2023-12-14 | ECG_ITS ---
Test Reason : desaturation, irregular heart rate Blood Pressure : / mmHG Vent. Rate : 088 BPM Atrial Rate : 088 BPM P-R Int : 174 ms QRS Dur : 098 ms QT Int : 374 ms P-R-T Axes : 065 028 028 degrees QTc Int : 452 ms Sinus rhythm with frequent Premature ventricular complexes Nonspecific ST abnormality Abnormal ECG No previous ECGs available Referred By: Ilya Lunsford Electronically Signed By:MYA HESTER MD
[2023-12-14] MEDS: Melatonin 3 MG TABLET 6 MG PO (00:05)
[2023-12-14] MEDS: HYDROmorphone HCl 1 MG/ML SYRINGE 0.5 MG SUBCUT (00:21)
[2023-12-14] MEDS: Acetaminophen 1,000 MG/100 ML PIGGYBACK 400 MG IV ×4 (02:57→20:33)
[2023-12-14] MEDS: Lactated Ringers 1,000 ML 100 ML IVCONT ×3 (04:04→23:36)
[2023-12-14] MEDS: PANTOPRAZOLE 40 MG 40 EACH PO (04:55)
[2023-12-14 05:48] LABS: Basophils Percent Auto 0.2 % (0-2); Eosinophils Percent Auto 0.2 % (0-4); Hematocrit 39.3 % (42.0-52.0); Hemoglobin 13.2 g/dl (14.0-18.0); Imm Gran Abs Auto 0.09 X10*3/uL (0.00-0.03); Imm Gran Pct Auto 0.5 % (0.0-0.4); Lymphocytes Absolute Auto 0.7 X10*3/uL (1.2-4.9); Lymphocytes Percent Auto 4.2 % (20-40); MANUAL DIFF FLAG SCAN; Mean Corpuscular HGB Conc 33.6 g/dl (31.0-36.0); Mean Corpuscular Hemoglobin 31.4 pg (27.0-33.0); Mean Corpuscular Volume 93.3 fL (80.0-98.0); Mean Platelet Volume 11.4 fL (9.4-12.4); Monocytes Absolute Auto 0.5 X10*3/uL (0.1-1.2); Monocytes Percent Auto 3.2 % (2-11); Neutrophils Absolute Auto 15.4 x10*3/uL (2.0-8.3); Neutrophils Percent Auto 91.7 % (45-73); Platelet Count 228 X10*3/uL (160-400); Red Blood Count 4.21 X10*6/uL (4.60-5.80); Red Cell Distribution Width 12.5 % (11.0-16.0); SCAN SMEAR FLAG 1; White Blood Count 16.8 X10*3/uL (4.8-10.8)
[2023-12-14 06:05] LABS: SLIDE REVIEW VERIFIED
--- NOTE | 2023-12-14 07:28 | PC.NURSE ---
0630- patient stated to be feeling a little weak and drained , more tired and perhaps hungry, denied chest pain or pressure, skin warm and dry, color good. noted Pt had just ambulated in hallways and unit with [employer] escort and back to bed. Pt stated I think maybe I did too much. beverage and snack offered as pt on clear liquid diet so , therefore, ate half cup of sherbert. vitals 140/70-63-18- and 90% room air, sitting upright, no s/sx resp distress or SOB. oxygen applied via n/c titrated to 3 liters for 95% reading. lung fine dim to bases as prior, dressing to abdomen c-d-i, patria drain with 20ml serosang output. report and update to day RN and checked at 0710 and sitting up in bed and watching tv with no additional complaints other than feeling tired.
--- NOTE | 2023-12-14 08:23 | P.PNGS_ITS ---
Subjective Subjective Date of Service: 12/14/23 Interval history: Patient reports feeling short of breast and noted abdominal distension. Noted to have decreased O2 saturation and irregular HR by RN. Physical Exam 2 Vital Signs: Vital Signs: Last Vital Signs Temp 98.2 F 12/14/23 07:20 Pulse 78 12/14/23 07:20 Resp 18 12/14/23 07:20 BP 140/86 H 12/14/23 07:20 Pulse Ox 92 12/14/23 07:20 O2 Del Method Nasal Cannula 12/14/23 07:20 O2 Flow Rate 3 12/14/23 07:20 BMI result Body Mass Index 26.0 Const: General: alert, awake and tired appearing Nutritional Appearance: w ell nourished Orientation/consciousness: patient oriented x3 Resp: Effort & Inspection: normal respiratory effort, no stridor and not tachypneic Auscultation: clear to auscultation bilaterally GI: Other: incision is clean and intact without redness, minimal bloody discharge on dressing. Ostomy patent with bilious output. Palpation (GI): Soft to palpation, nontender, no guarding and not rigid Percussion: Yes normal to percussion Skin: Other: warm and dry Neuro: General: patient oriented x3 Objective Data Active Medications Al Hydroxide/Mg Hydroxide (Magnesium Hydrox/Alum Hydrox 30 Ml Oral.Susp) 30 ml PO Q4H PRN PRN Reason: Heartburn/Nausea Albuterol Sulfate (Albuterol Sulfate (0.083%) 2.5 Mg/3 Ml Vial.Neb) 2.5 mg INHALE ONCE PRN PRN Reason: Shortness of Breath/Wheezing Last Admin: 12/12/23 06:51 Dose: 2.5 mg Documented By: LUIS DANIEL Enoxaparin Sodium (Enoxaparin Sodium 40 Mg/0.4 Ml Syringe) 40 mg SUBCUT Q24H [facility] Last Admin: 12/13/23 11:37 Dose: 40 mg Documented By: KOBI Hydromorphone HCl (Hydromorphone Hcl 1 Mg/Ml Syringe) 0.5 mg SUBCUT Q4H PRN; Protocol PRN Reason: Pain, Severe (Pain Scale 7-10) Last Admin: 12/14/23 00:21 Dose: 0.5 mg Documented By: RITA Acetaminophen (Ofirmev) 1,000 mg in 100 mls @ 400 mls/hr IV Q6H [facility] Last Infusion: 12/14/23 03:12 Dose: Infused Documented By: RITA Melatonin (Melatonin 3 Mg Tablet) 6 mg PO BEDTIME PRN PRN Reason: Insomnia Last Admin: 12/14/23 00:05 Dose: 6 mg Documented By: RITA Pt Own (Pantoprazole 40 Mg Tablet, Delayed Release (Dr/Ec)) 40 mg PO DAILY@0630 [facility] Last Admin: 12/14/23 04:55 Dose: 40 mg Documented By: RITA Comments: requested at this time by patient, therefore administered early Ondansetron HCl (Ondansetron Hcl 4 Mg/2 Ml Vial) 4 mg IVPUSH Q8H PRN PRN Reason: Nausea and Vomiting Oxycodone HCl (Oxycodone Hcl Immed Release 5 Mg Tablet) 5 mg PO Q6H PRN PRN Reason: Pain, Moderate(Pain Scale 4-6) Last Admin: 12/13/23 11:37 Dose: 5 mg Documented By: KOBI Sodium Chloride (0.9 % Sodium Chloride Flush 3 Ml Syringe) 3 ml IVFLUSH QSHIFT [facility] Last Admin: 12/13/23 20:56 Dose: 3 ml Documented By: WYATT Tamsulosin HCl (Tamsulosin Hcl 0.4 Mg Capsule) 0.4 mg PO BEDTIME [facility] Last Admin: 12/13/23 20:56 Dose: 0.4 mg Documented By: WYATT Labs 12/14/23 05:18 12/13/23 05:13 Labs: Laboratory Results - last 24 hr 12/14/23 05:18 MCV 93.3 MCH 31.4 MCHC 33.6 RDW 12.5 Plt Count 228 MPV 11.4 Immature Gran % (Auto) 0.5 H Neut % (Auto) 91.7 H Lymph % (Auto) 4.2 L [place] % (Auto) 3.2 Eos % (Auto) 0.2 Baso % (Auto) 0.2 Lymph # (Auto) 0.7 L [place] # (Auto) 0.5 Eos # (Auto) 0.0 Baso # (Auto) 0.0 Abs Immat Gran (auto) 0.09 H Absolute Neuts (auto) 15.4 H Absolute Nucleated RBC 0.000 Nucleated RBC % (auto) 0.0 Smear Tech's Comments VERIFIED Procedures Date of Service Date of Service: 12/14/23 Progress Note: A&P Assessment and plan (1) Diverticulitis of sigmoid colon: Status: Acute Plan POD #2 s/p exploratory laparotomy, extensive enterolysis, takedown splenic flexure, sigmoid resection, colo -rectal trans -anal primary anastomosis, proctosigmoidoscopy, diverting loop ileostomy. Reports SOB, abdominal distension. Clear lungs; sat 92% on 3 L NC. Abd exam benign soft and minimally distended- ileostomy patent with bilious output. Dressing clean and intact. YOVANA drain serosanguineous. EKG checked: PVC's, SR. Will check CXR, lytes. CBC ok. Requested hospitalist consultation. Time Spent With Patient Time: Total time managing care of this patient today ____ minutes. Quality Stroke Does the patient have a stroke diagnosis?: No VTE Prior VTE?: No VTE Risk Level:: Surgical - high VTE Device Contraindication: N/A - Device Ordered VTE Drug Contraindication: N/A - Med Ordered
[2023-12-14] MEDS: Magnesium Hydrox/Alum Hydrox 30 ML ORAL.SUSP PO (09:03)
[2023-12-14 09:06] LABS: Alanine Aminotransferase 8 U/L (0-40); Albumin Level 3.3 g/dL (3.5-5.0); Alkaline Phosphatase 81 U/L (39-117); Anion Gap 14 (12-20); Aspartate Amino Transferase 14 U/L (5-37); Bilirubin Total 0.7 mg/dL (0.0-1.0); Blood Urea Nitrogen 9 mg/dL (9-16); Calcium 9.1 mg/dL (8.4-10.2); Carbon Dioxide 22 mmol/L (22-29); Chloride 104 mmol/L (96-108); Creatinine Clr Calc Pharmacy 100.4; Estimated Glomerular Filt Rate > 60; Glucose Random 124 mg/dL (60-115); Potassium 4.1 mmol/L (3.3-5.1); Sodium 136 mmol/L (135-145); Total Protein 6.5 g/dL (6.5-8.0)
[2023-12-14 09:18] LABS: B Type Natriuretic Peptide 107 pg/mL (<100)
[2023-12-14] MEDS: Enoxaparin Sodium 40 MG/0.4 ML SYRINGE SUBCUT (11:29)
[2023-12-14] MEDS: ondansetron HCL 4 MG/2 ML VIAL IVPUSH (11:35)
--- NOTE | 2023-12-14 13:37 | PC.NURSE ---
Pt reports feeling SOB, fatigue. O2 sat 92% on 3L. Dr. Lunsford notified. EKG and CXR ordered. EKG showed Sinus Rhythm with frequent PVC's. awaiting CXR results. Consult to hospitalist placed. Encouraged Incentive Spirometer use. Pt reporting slight nausea, belching and feeling bloating and indigestion. Abdomen slightly distended. Medicated with maalox with no effect. Medicated with zofran which helped nausea improve. Dr. Lunsford notified and ordered NPO diet and continue IV fluids. Waiting for pt to be seen by hospitalist.
[2023-12-14] MEDS: Calcium Carbonate 750 MG TAB.CHEW 1500 MG PO ×2 (14:37→20:32)
--- NOTE | 2023-12-14 14:52 | PC.NURSE ---
midline surgical incision with small amt bleeding. steristrips loose. Picture sent to Dr. Lunsford and dsd applied.
--- NOTE | 2023-12-14 14:57 | PM.IMCN ---
History of Present Illness Data of Consult Service Date: 12/14/23 Primary Care Provider: Lindsay Kelley MD HPI Reason for consult: Hypoxia A 73 years old male with PMH of recurrent diverticulitis who presented for exploratory laparotomy and partial colectomy for recurrent diverticulitis 2 days after surgery with increase SOB and drop in O2 saturation. The patient reports shallow breathing since surgery because of pain. Denies chest pain, palpitations, nausea, vomiting, diarrhea or urinary symptoms. but reports feeling more SOB. CXR showing Atelactasis. No fever, chills or cough. Hospitalist team asked to evaluate and follow. Review of Systems Review of Systems: No fever, chills or weakness No chest pain, palpitation mild shortness of breath with no coughing generalized abdominal pain, no nausea or vomiting No urinary symptoms No any rash or wounds PMFSH Medical History Back pain Seasonal allergic rhinitis Palpitations GERD (gastroesophageal reflux disease) Diverticulitis Nephrolithiasis Splenic cyst Surgical History Hx of cystoscopy H/O colonoscopy History of surgery History of left inguinal hernia repair Hx of right inguinal hernia repair Social History Household Members: Spouse Housing: House Are you a primary hemodialysis patient care specialist to a significant other at home: No Do you presently have visiting nurse or other home services: No ( has VNA currently for recent fall) Comment: counts correct Patient Tobacco Use Status: Current everyday Tobacco user Tobacco use type: Cigarette Cigarettes Per Day: 5 Years Smoked: 50 Smoked in Last 30 Days: Yes Use of substances other than those prescribed or required for medical reasons: No Currently Displaying Signs/Symptoms of Drug Intoxication Withdrawal: No Have you been hit, kicked, punched, or otherwise hurt by someone within the past year? If so, by whom?: No Do you feel safe in your current relationship?: Yes Is there a partner from a previous relationship who is making you feel unsafe now?: No Are you made to feel afraid or neglected: No Are you DNR?: No Advance Directives Information Provided: Yes (as above noted) Advance Directives on File: No Do you have a plan to hurt others: No Plan Recently lost weight without trying: No Eating poorly because of decreased appetite: No Nutrition Risks: No Nutritional Risk service: No Meds Allergies Allergy/AdvReac Type Severity Reaction Status Date / Time No Known Allergies Allergy Verified 12/02/23 13:34 Active Medications: Current Medications Al Hydroxide/Mg Hydroxide (Magnesium Hydrox/Alum Hydrox 30 Ml Oral.Susp) 30 ml PO Q4H PRN PRN Reason: Heartburn/Nausea Last Admin: 12/14/23 09:03 Dose: 30 ml Albuterol Sulfate (Albuterol Sulfate (0.083%) 2.5 Mg/3 Ml Vial.Neb) 2.5 mg INHALE ONCE PRN PRN Reason: Shortness of Breath/Wheezing Last Admin: 12/12/23 06:51 Dose: 2.5 mg Calcium Carbonate (Calcium Carbonate 750 Mg Tab.Chew) 1,500 mg PO Q6H PRN PRN Reason: Heartburn Last Admin: 12/14/23 14:37 Dose: 1,500 mg Enoxaparin Sodium (Enoxaparin Sodium 40 Mg/0.4 Ml Syringe) 40 mg SUBCUT Q24H [facility] Last Admin: 12/14/23 11:29 Dose: 40 mg Hydromorphone HCl (Hydromorphone Hcl 1 Mg/Ml Syringe) 0.5 mg SUBCUT Q4H PRN; Protocol PRN Reason: Pain, Severe (Pain Scale 7-10) Last Admin: 12/14/23 00:21 Dose: 0.5 mg Acetaminophen (Ofirmev) 1,000 mg in 100 mls @ 400 mls/hr IV Q6H [facility] Last Infusion: 12/14/23 14:53 Dose: Infused Lactated Ringer's (Lr) 1,000 mls @ 100 mls/hr IVCONT .Q10H [facility] Last Admin: 12/14/23 13:22 Dose: 100 mls/hr Melatonin (Melatonin 3 Mg Tablet) 6 mg PO BEDTIME PRN PRN Reason: Insomnia Last Admin: 12/14/23 00:05 Dose: 6 mg Pt Own (Pantoprazole 40 Mg Tablet, Delayed Release (Dr/Ec)) 40 mg PO DAILY@0630 [facility] Last Admin: 12/14/23 04:55 Dose: 40 mg Ondansetron HCl (Ondansetron Hcl 4 Mg/2 Ml Vial) 4 mg IVPUSH Q8H PRN PRN Reason: Nausea and Vomiting Last Admin: 12/14/23 11:35 Dose: 4 mg Oxycodone HCl (Oxycodone Hcl Immed Release 5 Mg Tablet) 5 mg PO Q6H PRN PRN Reason: Pain, Moderate(Pain Scale 4-6) Last Admin: 12/13/23 11:37 Dose: 5 mg Sodium Chloride (0.9 % Sodium Chloride Flush 3 Ml Syringe) 3 ml IVFLUSH QSHIFT [facility] Last Admin: 12/14/23 09:08 Dose: Not Given Tamsulosin HCl (Tamsulosin Hcl 0.4 Mg Capsule) 0.4 mg PO BEDTIME [facility] Last Admin: 12/13/23 20:56 Dose: 0.4 mg Home Medications ?Medication ?Instructions ?Recorded ?Confirmed ?Last Taken ?Type pantoprazole 40 mg tablet,delayed 40 mg PO DAILY@0630 10/16/23 12/12/23 12/11/23 08:30 History release azelastine 137 mcg (0.1 %) nasal 2 spray intranasal BID 12/04/23 12/12/23 12/11/23 16:00 History spray aerosol cetirizine 10 mg tablet 10 mg PO DAILY allergies 12/12/23 12/12/23 Unknown History Physical Exam Vital Signs and Narrative: Vital Signs: Last Vital Signs Temp 98.2 F 12/14/23 07:20 Pulse 87 12/14/23 14:39 Resp 20 12/14/23 14:39 BP 140/86 H 12/14/23 07:20 Pulse Ox 95 12/14/23 14:39 O2 Del Method Nasal Cannula 12/14/23 14:39 O2 Flow Rate 3 12/14/23 14:39 BMI result Body Mass Index 26.0 Const: Other: Constitutional : Awake, interactive, not in distress Neck : Normal inspection, Supple Cardiovascular : RRR, no JVP, no lower extremity edema Respiratory : good bilateral air entry, basal fine crackles, wheezes or rhonchi Gastrointestinal: soft, lax, Normal bowel sounds, Non tender Skin : Warm, Dry Neurological : Alert & oriented x3, No focal deficit Results Labs 12/14/23 05:18 12/14/23 05:18 Labs: Laboratory Results - last 24 hr 12/14/23 12/14/23 05:18 08:53 MCV 93.3 MCH 31.4 MCHC 33.6 RDW 12.5 Plt Count 228 MPV 11.4 Immature Gran % (Auto) 0.5 H Neut % (Auto) 91.7 H Lymph % (Auto) 4.2 L [place] % (Auto) 3.2 Eos % (Auto) 0.2 Baso % (Auto) 0.2 Lymph # (Auto) 0.7 L [place] # (Auto) 0.5 Eos # (Auto) 0.0 Baso # (Auto) 0.0 Abs Immat Gran (auto) 0.09 H Absolute Neuts (auto) 15.4 H Absolute Nucleated RBC 0.000 Nucleated RBC % (auto) 0.0 Smear Tech's Comments VERIFIED Anion Gap 14 Estim Creat Clear Calc 100.4 Estimated GFR > 60 Random Glucose 124 H Calcium 9.1 D Total Bilirubin 0.7 AST 14 ALT 8 Alkaline Phosphatase 81 B-Natriuretic Peptide 107 H Total Protein 6.5 Albumin 3.3 L Imaging Radiologist's Impressions: Impressions Chest X-Ray 12/14/23 08:53 IMPRESSION: Bibasilar streaky radiopacities may reflect atelectasis versus evolving infectious/inflammatory etiology. Assessment and Plan (1) Acute atelectasis: Status: Acute Plan A 73 years old male with PMH of recurrent diverticulitis who presented for exploratory laparotomy and partial colectomy for recurrent diverticulitis 2 days after surgery with increase SOB and drop in O2 saturation. Acute Atelactasis Shown on CXR likely 2/2 surgery and decrease inspiration because of pain encourage incentive spirometry and increase activity Hold on Antibiotics for now Consider stopping IVF once he is able to tolerate PO Thank you for the consult, will follow the patient with you
--- NOTE | 2023-12-14 16:13 | MHC.CM.PN ---
PT LIVES AT HOME WITH HIS , WHO CURRENTLY HAS VNA SERVICES PT HAS NO SERVICES OR DME HE SAYS HE HAS A HCP, COPY REQUESTED PCP: GIBSON GILES DCP: HOME NO SERVICES VIA PRIVATE TRANSPORT
[2023-12-14] MEDS: oxyCODONE HCl Immed Release 5 MG TABLET PO (17:44)
[2023-12-14] MEDS: Tamsulosin HCL 0.4 MG CAPSULE PO (20:32)
[2023-12-15] MEDS: Acetaminophen 1,000 MG/100 ML PIGGYBACK 400 MG IV ×4 (03:31→20:43)
[2023-12-15] MEDS: Calcium Carbonate 750 MG TAB.CHEW 1500 MG PO ×2 (03:58→20:51)
[2023-12-15 04:00] VITALS: BP 129/78; PULSE 62; RESP 16; TEMP 36.1; O2SAT 94
[2023-12-15] MEDS: PANTOPRAZOLE 40 MG 40 EACH PO (06:38)
[2023-12-15 07:42] VITALS: BP 142/73; PULSE 64; RESP 18; TEMP 37; O2SAT 94
[2023-12-15] MEDS: oxyCODONE HCl Immed Release 5 MG TABLET PO ×2 (08:15→16:31)
--- NOTE | 2023-12-15 08:22 | P.PNGS_ITS ---
Subjective Subjective Date of Service: 12/15/23 Interval history: Overall feels improved this morning. Less shortness of breath. Patient noted to have atelectasis by chest x-ray. Still remains on nasal O2. Mainly complains of heartburn at this time. Physical Exam 2 Vital Signs: Vital Signs: Last Vital Signs Temp 98.6 F 12/15/23 07:42 Pulse 64 12/15/23 07:42 Resp 18 12/15/23 07:42 BP 142/73 H 12/15/23 07:42 Pulse Ox 94 12/15/23 07:42 O2 Del Method Nasal Cannula 12/15/23 07:42 O2 Flow Rate 3 12/15/23 07:42 BMI result Body Mass Index 26.0 Const: General: no acute distress, alert and awake Nutritional Appearance: well nourished Orientation/consciousness: patient oriented x3 Resp: Other: On nasal O2 3 L Effort & Inspection: normal respiratory effort, no audible wheezes, no cough and no respiratory distress GI: Other: incision is clean and intact without redness, minimal bloody discharge on dressing. Ostomy patent with bilious output. Palpation (GI): Soft to palpation, nontender, no guarding and not rigid Percussion: Yes normal to percussion Skin: Other: warm and dry Neuro: General: patient oriented x3 Objective Data Active Medications Al Hydroxide/Mg Hydroxide (Magnesium Hydrox/Alum Hydrox 30 Ml Oral.Susp) 30 ml PO Q4H PRN PRN Reason: Heartburn/Nausea Last Admin: 12/14/23 09:03 Dose: 30 ml Documented By: JEREL Albuterol Sulfate (Albuterol Sulfate (0.083%) 2.5 Mg/3 Ml Vial.Neb) 2.5 mg INHALE ONCE PRN PRN Reason: Shortness of Breath/Wheezing Last Admin: 12/12/23 06:51 Dose: 2.5 mg Documented By: LUIS DANIEL Calcium Carbonate (Calcium Carbonate 750 Mg Tab.Chew) 1,500 mg PO Q6H PRN PRN Reason: Heartburn Last Admin: 12/15/23 03:58 Dose: 1,500 mg Documented By: RITA Enoxaparin Sodium (Enoxaparin Sodium 40 Mg/0.4 Ml Syringe) 40 mg SUBCUT Q24H [facility] Last Admin: 12/14/23 11:29 Dose: 40 mg Documented By: JEREL Hydromorphone HCl (Hydromorphone Hcl 1 Mg/Ml Syringe) 0.5 mg SUBCUT Q4H PRN; Protocol PRN Reason: Pain, Severe (Pain Scale 7-10) Last Admin: 12/14/23 00:21 Dose: 0.5 mg Documented By: RITA Acetaminophen (Ofirmev) 1,000 mg in 100 mls @ 400 mls/hr IV Q6H [facility] Last Admin: 12/15/23 08:16 Dose: 400 mls/hr Documented By: JEREL Lactated Ringer's (Lr) 1,000 mls @ 100 mls/hr IVCONT .Q10H [facility] Last Admin: 12/14/23 23:36 Dose: 100 mls/hr Documented By: RITA Melatonin (Melatonin 3 Mg Tablet) 6 mg PO BEDTIME PRN PRN Reason: Insomnia Last Admin: 12/14/23 00:05 Dose: 6 mg Documented By: RITA Pt Own (Pantoprazole 40 Mg Tablet, Delayed Release (Dr/Ec)) 40 mg PO DAILY@0630 [facility] Last Admin: 12/15/23 06:38 Dose: 40 mg Documented By: RITA Ondansetron HCl (Ondansetron Hcl 4 Mg/2 Ml Vial) 4 mg IVPUSH Q8H PRN PRN Reason: Nausea and Vomiting Last Admin: 12/14/23 11:35 Dose: 4 mg Documented By: JEREL Oxycodone HCl (Oxycodone Hcl Immed Release 5 Mg Tablet) 5 mg PO Q6H PRN PRN Reason: Pain, Moderate(Pain Scale 4-6) Last Admin: 12/15/23 08:15 Dose: 5 mg Documented By: JEREL Sodium Chloride (0.9 % Sodium Chloride Flush 3 Ml Syringe) [facility] Last Admin: 12/15/23 08:18 Dose: Not Given Documented By: JEREL Non-Admin Reason: IV Running Tamsulosin HCl (Tamsulosin Hcl 0.4 Mg Capsule) 0.4 mg PO BEDTIME [facility] Last Admin: 12/14/23 20:32 Dose: 0.4 mg Documented By: HO.BEIT Labs 12/14/23 05:18 12/14/23 05:18 Labs: Laboratory Results - last 24 hr 12/14/23 12/14/23 05:18 08:53 Anion Gap 14 Estim Creat Clear Calc 100.4 Estimated GFR > 60 Random Glucose 124 H Calcium 9.1 D Total Bilirubin 0.7 AST 14 ALT 8 Alkaline Phosphatase 81 B-Natriuretic Peptide 107 H Total Protein 6.5 Albumin 3.3 L Procedures Date of Service Date of Service: 12/15/23 Progress Note: A&P Assessment and plan (1) Acute atelectasis: Status: Acute (2) Diverticulitis of sigmoid colon: Status: Acute Plan Patient encouraged to get out of bed and ambulate, deep breathing exercises with incentive spirometry. Abdomen is soft and nondistended, ostomy functioning well. Recheck CBC in a.m. Time Spent With Patient Time: Total time managing care of this patient today ____ minutes. Quality Stroke Does the patient have a stroke diagnosis?: No VTE Prior VTE?: No VTE Risk Level:: Surgical - high VTE Device Contraindication: N/A - Device Ordered VTE Drug Contraindication: N/A - Med Ordered
[2023-12-15] MEDS: Lactated Ringers 1,000 ML 100 ML IVCONT ×2 (09:33→19:56)
[2023-12-15] MEDS: Enoxaparin Sodium 40 MG/0.4 ML SYRINGE SUBCUT (11:34)
[2023-12-15 11:39] VITALS: PULSE 70; RESP 18; O2SAT 91
[2023-12-15 15:47] VITALS: BP 136/64; PULSE 57; RESP 16; TEMP 36.6; O2SAT 93
--- NOTE | 2023-12-15 16:33 | PC.NURSE ---
Addendum entered by Lindy Morley RN 12/15/23 20:49: lower abdominal drsg CDI at present Original Note: Mid abdominal drsg saturated with greenish/sero-sanguinous drainage,mild odor,top of the incision oozing drainage,cleansed with normal saline applied sterile drsg,Dr. Lunsford notified
[2023-12-15] MEDS: Piperacillin Sodium/Tazobactam 3.375 GM in 0.9 % Sodium Chloride 50 ML IV ×2 (18:10→23:33)
[2023-12-15 19:41] VITALS: BP 136/64; PULSE 80; RESP 18; TEMP 36.8; O2SAT 93
[2023-12-15] MEDS: Tamsulosin HCL 0.4 MG CAPSULE PO (20:44)
[2023-12-15 23:36] VITALS: BP 152/65; PULSE 56; RESP 18; TEMP 36.1; O2SAT 94
[2023-12-15] MEDS: 0.9 % Sodium Chloride Flush 3 ML SYRINGE IVFLUSH (23:39)
[2023-12-16] MEDS: Acetaminophen 1,000 MG/100 ML PIGGYBACK 400 MG IV ×4 (03:17→20:42)
--- NOTE | 2023-12-16 06:05 | PC.NURSE ---
dressing checked at midnight and 0530, dry and intact both times. Patient is comfortable. YOVANA drain emptied of 70mL at midnight.
[2023-12-16] MEDS: Piperacillin Sodium/Tazobactam 3.375 GM in 0.9 % Sodium Chloride 50 ML IV ×4 (06:31→23:50)
[2023-12-16] MEDS: PANTOPRAZOLE 40 MG 40 EACH PO (06:37)
[2023-12-16 06:44] LABS: MANUAL DIFF FLAG NO
[2023-12-16 06:48] LABS: Basophils Percent Auto 0.3 % (0-2); Eosinophils Absolute Auto 0.3 X10*3/uL (0.0-0.4); Eosinophils Percent Auto 2.3 % (0-4); Hematocrit 37.4 % (42.0-52.0); Hemoglobin 12.7 g/dl (14.0-18.0); Imm Gran Abs Auto 0.06 X10*3/uL (0.00-0.03); Imm Gran Pct Auto 0.5 % (0.0-0.4); Lymphocytes Absolute Auto 1.2 X10*3/uL (1.2-4.9); Lymphocytes Percent Auto 9.4 % (20-40); Mean Corpuscular Hemoglobin 31.8 pg (27.0-33.0); Mean Corpuscular Volume 93.5 fL (80.0-98.0); Mean Platelet Volume 11.7 fL (9.4-12.4); Monocytes Absolute Auto 0.6 X10*3/uL (0.1-1.2); Neutrophils Absolute Auto 10.3 x10*3/uL (2.0-8.3); Neutrophils Percent Auto 82.5 % (45-73); Platelet Count 242 X10*3/uL (160-400); Red Cell Distribution Width 12.3 % (11.0-16.0); White Blood Count 12.4 X10*3/uL (4.8-10.8)
[2023-12-16 07:06] LABS: Anion Gap 14 (12-20); Blood Urea Nitrogen 9 mg/dL (9-16); Calcium 9.2 mg/dL (8.4-10.2); Carbon Dioxide 24 mmol/L (22-29); Chloride 103 mmol/L (96-108); Creatinine Clr Calc Pharmacy 104.7; Estimated Glomerular Filt Rate > 60; Glucose Random 103 mg/dL (60-115); Potassium 4.2 mmol/L (3.3-5.1); Sodium 137 mmol/L (135-145)
[2023-12-16] MEDS: Lactated Ringers 1,000 ML 100 ML IVCONT (07:09)
[2023-12-16] MEDS: 0.9 % Sodium Chloride Flush 3 ML SYRINGE IVFLUSH ×2 (07:09→23:49)
[2023-12-16 07:44] VITALS: BP 152/65; PULSE 56; RESP 16; TEMP 36.4
--- NOTE | 2023-12-16 07:54 | PM.PNGS ---
Subjective Subjective Date of Service: 12/16/23 Interval history: Had nausea, shortness of breath over the weekend. Slightly improved today. Able to tolerate some liquids. Reports belching. Had drainage from incision yesterday. Reports OOB and ambulation of halls, IS use. Physical Exam Vital Signs: Vital Signs: Last Vital Signs Temp 97.5 F 12/16/23 07:44 Pulse 56 12/16/23 07:44 Resp 16 12/16/23 07:44 BP 152/65 H 12/16/23 07:44 Pulse Ox 94 12/15/23 23:36 O2 Del Method Nasal Cannula 12/16/23 07:44 O2 Flow Rate 2 12/16/23 07:44 BMI result Body Mass Index 26.0 Const: General: no acute distress and alert Resp: Effort & Inspection: normal respiratory effort and no respiratory distress GI: Other: ostomy viable appearing with large amt of flatus and liquid stool YOVANA drain serosanguineous Inspection: Yes distended and Yes incision (some serous drainage on dressing overnight, erythema of superior/inferior ) Palpation (GI): Soft to palpation, Tenderness to palpation present (GI) (incisional) and no guarding Skin: General skin exam: no rashes or lesions noted Objective Data Active Medications Al Hydroxide/Mg Hydroxide (Magnesium Hydrox/Alum Hydrox 30 Ml Oral.Susp) 30 ml PO Q4H PRN PRN Reason: Heartburn/Nausea Last Admin: 12/14/23 09:03 Dose: 30 ml Documented By: JEREL Albuterol Sulfate (Albuterol Sulfate (0.083%) 2.5 Mg/3 Ml Vial.Neb) 2.5 mg INHALE ONCE PRN PRN Reason: Shortness of Breath/Wheezing Last Admin: 12/12/23 06:51 Dose: 2.5 mg Documented By: LUIS DANIEL Calcium Carbonate (Calcium Carbonate 750 Mg Tab.Chew) 1,500 mg PO Q6H PRN PRN Reason: Heartburn Last Admin: 12/15/23 20:51 Dose: 1,500 mg Documented By: MARIA Enoxaparin Sodium (Enoxaparin Sodium 40 Mg/0.4 Ml Syringe) 40 mg SUBCUT Q24H [facility] Last Admin: 12/15/23 11:34 Dose: 40 mg Documented By: JEREL Hydromorphone HCl (Hydromorphone Hcl 1 Mg/Ml Syringe) 0.5 mg SUBCUT Q4H PRN; Protocol PRN Reason: Pain, Severe (Pain Scale 7-10) Last Admin: 12/14/23 00:21 Dose: 0.5 mg Documented By: RITA Acetaminophen (Ofirmev) 1,000 mg in 100 mls @ 400 mls/hr IV Q6H [facility] Last Infusion: 12/16/23 03:44 Dose: Infused Documented By: NAEEM Lactated Ringer's (Lr) 1,000 mls @ 100 mls/hr IVCONT .Q10H [facility] Last Admin: 12/16/23 07:09 Dose: 100 mls/hr Documented By: BEBETO Piperacillin Sod/Tazobactam (Sod 3.375 gm/ Sodium Chloride) 50 mls @ 100 mls/hr IV Q6H [facility] Last Infusion: 12/16/23 07:12 Dose: Infused Documented By: BEBETO Melatonin (Melatonin 3 Mg Tablet) 6 mg PO BEDTIME PRN PRN Reason: Insomnia Last Admin: 12/14/23 00:05 Dose: 6 mg Documented By: RITA Pt Own (Pantoprazole 40 Mg Tablet, Delayed Release (Dr/Ec)) 40 mg PO DAILY@0630 [facility] Last Admin: 12/16/23 06:37 Dose: 40 mg Documented By: NAEEM Ondansetron HCl (Ondansetron Hcl 4 Mg/2 Ml Vial) 4 mg IVPUSH Q8H PRN PRN Reason: Nausea and Vomiting Last Admin: 12/14/23 11:35 Dose: 4 mg Documented By: JEREL Oxycodone HCl (Oxycodone Hcl Immed Release 5 Mg Tablet) 5 mg PO Q6H PRN PRN Reason: Pain, Moderate(Pain Scale 4-6) Last Admin: 12/15/23 16:31 Dose: 5 mg Documented By: MARIA Sodium Chloride (0.9 % Sodium Chloride Flush 3 Ml Syringe) [facility] Last Admin: 12/16/23 07:09 Dose: 3 ml Documented By: BEBETO Tamsulosin HCl (Tamsulosin Hcl 0.4 Mg Capsule) 0.4 mg PO BEDTIME [facility] Last Admin: 12/15/23 20:44 Dose: 0.4 mg Documented By: MARIA Labs 12/16/23 06:09 12/16/23 06:09 Labs: Laboratory Results - last 24 hr 12/16/23 06:09 MCV 93.5 MCH 31.8 MCHC 34.0 RDW 12.3 Plt Count 242 MPV 11.7 Immature Gran % (Auto) 0.5 H Neut % (Auto) 82.5 H Lymph % (Auto) 9.4 L [place] % (Auto) 5.0 Eos % (Auto) 2.3 Baso % (Auto) 0.3 Lymph # (Auto) 1.2 [place] # (Auto) 0.6 Eos # (Auto) 0.3 Baso # (Auto) 0.0 Abs Immat Gran (auto) 0.06 H Absolute Neuts (auto) 10.3 H Absolute Nucleated RBC 0.000 Nucleated RBC % (auto) 0.0 Anion Gap 14 Estim Creat Clear Calc 104.7 Estimated GFR > 60 Random Glucose 103 Calcium 9.2 Procedures Date of Service Date of Service: 12/16/23 Progress Note: A&P Assessment and plan (1) Diverticulitis of sigmoid colon: Status: Acute Plan POD #4 s/p sigmoid resection, diverting loop ileostomy. Has good ileostomy output but remains distended and belching. Incision with pale erythema, serous drainage, YOVANA serosanguineous output. Will keep YOVANA drain in place. Will advance to full liquids as tolerated. Increase ambulation. On IV zosyn, WBC improved. Time Spent With Patient Time: Total time managing care of this patient today ____ minutes. Quality Stroke Does the patient have a stroke diagnosis?: No VTE Prior VTE?: No VTE Risk Level:: Surgical - high VTE Device Contraindication: N/A - Device Ordered VTE Drug Contraindication: N/A - Med Ordered
[2023-12-16] MEDS: Enoxaparin Sodium 40 MG/0.4 ML SYRINGE SUBCUT (11:52)
--- NOTE | 2023-12-16 11:53 | HO.PM.IMPN ---
Subjective Subjective Date of Service: 12/16/23 Interval History: Seen and evaluated this morning Feels better overall some erythema and warmth around surgical wound weaned off O2 Review of Systems Review of Systems: Yes all other systems are reviewed and are negative Physical Exam Vital Signs: Vital Signs: Last Vital Signs Temp 97.5 F 12/16/23 07:44 Pulse 56 12/16/23 07:44 Resp 16 12/16/23 07:44 BP 152/65 H 12/16/23 07:44 Pulse Ox 94 12/15/23 23:36 O2 Del Method Nasal Cannula 12/16/23 07:44 O2 Flow Rate 2 12/16/23 07:44 BMI result Body Mass Index 26.0 Const: Other: Constitutional : Awake, interactive, not in distress Neck : Normal inspection, Supple Cardiovascular : RRR, no JVP, no lower extremity edema Respiratory : good bilateral air entry, no crackles, wheezes or rhonchi Gastrointestinal: soft, lax, Normal bowel sounds, Non tender Skin : Warm, Dry, mild surgical wound erythema and warmth Neurological : Alert & oriented x3, No focal deficit Objective Data Active Medications Al Hydroxide/Mg Hydroxide (Magnesium Hydrox/Alum Hydrox 30 Ml Oral.Susp) 30 ml PO Q4H PRN PRN Reason: Heartburn/Nausea Last Admin: 12/14/23 09:03 Dose: 30 ml Documented By: JEREL Albuterol Sulfate (Albuterol Sulfate (0.083%) 2.5 Mg/3 Ml Vial.Neb) 2.5 mg INHALE ONCE PRN PRN Reason: Shortness of Breath/Wheezing Last Admin: 12/12/23 06:51 Dose: 2.5 mg Documented By: LUIS DANIEL Calcium Carbonate (Calcium Carbonate 750 Mg Tab.Chew) 1,500 mg PO Q6H PRN PRN Reason: Heartburn Last Admin: 12/15/23 20:51 Dose: 1,500 mg Documented By: MARIA Enoxaparin Sodium (Enoxaparin Sodium 40 Mg/0.4 Ml Syringe) 40 mg SUBCUT Q24H [facility] Last Admin: 12/15/23 11:34 Dose: 40 mg Documented By: JEREL Hydromorphone HCl (Hydromorphone Hcl 1 Mg/Ml Syringe) 0.5 mg SUBCUT Q4H PRN; Protocol PRN Reason: Pain, Severe (Pain Scale 7-10) Last Admin: 12/14/23 00:21 Dose: 0.5 mg Documented By: RITA Acetaminophen (Ofirmev) 1,000 mg in 100 mls @ 400 mls/hr IV Q6H [facility] Last Infusion: 12/16/23 09:46 Dose: Infused Documented By: BEBETO Lactated Ringer's (Lr) 1,000 mls @ 100 mls/hr IVCONT .Q10H [facility] Last Admin: 12/16/23 07:09 Dose: 100 mls/hr Documented By: BEBETO Piperacillin Sod/Tazobactam (Sod 3.375 gm/ Sodium Chloride) 50 mls @ 100 mls/hr IV Q6H [facility] Last Infusion: 12/16/23 07:12 Dose: Infused Documented By: BEBETO Melatonin (Melatonin 3 Mg Tablet) 6 mg PO BEDTIME PRN PRN Reason: Insomnia Last Admin: 12/14/23 00:05 Dose: 6 mg Documented By: RITA Pt Own (Pantoprazole 40 Mg Tablet, Delayed Release (Dr/Ec)) 40 mg PO DAILY@0630 [facility] Last Admin: 12/16/23 06:37 Dose: 40 mg Documented By: NAEEM Ondansetron HCl (Ondansetron Hcl 4 Mg/2 Ml Vial) 4 mg IVPUSH Q8H PRN PRN Reason: Nausea and Vomiting Last Admin: 12/14/23 11:35 Dose: 4 mg Documented By: JEREL Oxycodone HCl (Oxycodone Hcl Immed Release 5 Mg Tablet) 5 mg PO Q6H PRN PRN Reason: Pain, Moderate(Pain Scale 4-6) Last Admin: 12/15/23 16:31 Dose: 5 mg Documented By: MARIA Sodium Chloride (0.9 % Sodium Chloride Flush 3 Ml Syringe) 3 ml IVFLUSH QSHIFT [facility] Last Admin: 12/16/23 07:09 Dose: 3 ml Documented By: BEBETO Tamsulosin HCl (Tamsulosin Hcl 0.4 Mg Capsule) 0.4 mg PO BEDTIME [facility] Last Admin: 12/15/23 20:44 Dose: 0.4 mg Documented By: MARIA Labs 12/16/23 06:09 12/16/23 06:09 Labs: Laboratory Results - last 24 hr 12/16/23 06:09 MCV 93.5 MCH 31.8 MCHC 34.0 RDW 12.3 Plt Count 242 MPV 11.7 Immature Gran % (Auto) 0.5 H Neut % (Auto) 82.5 H Lymph % (Auto) 9.4 L [place] % (Auto) 5.0 Eos % (Auto) 2.3 Baso % (Auto) 0.3 Lymph # (Auto) 1.2 [place] # (Auto) 0.6 Eos # (Auto) 0.3 Baso # (Auto) 0.0 Abs Immat Gran (auto) 0.06 H Absolute Neuts (auto) 10.3 H Absolute Nucleated RBC 0.000 Nucleated RBC % (auto) 0.0 Anion Gap 14 Estim Creat Clear Calc 104.7 Estimated GFR > 60 Random Glucose 103 Calcium 9.2 Assessment and Plan (1) Acute atelectasis: Status: Acute Plan A 73 years old male with PMH of recurrent diverticulitis who presented for exploratory laparotomy and partial colectomy for recurrent diverticulitis 2 days after surgery with increase SOB and drop in O2 saturation. Acute Atelactasis improved, Weaned Off O2 likely 2/2 surgery and decrease inspiration because of pain encourage incentive spirometry PT therapy on Antibiotics for surgical wound complication not for lung infection DC IVF once he is able to tolerate PO Thank you for the consult, will follow the patient with you Quality Stroke Does the patient have a stroke diagnosis?: No VTE Prior VTE?: No VTE Risk Level:: Surgical - high VTE Device Contraindication: N/A - Device Ordered VTE Drug Contraindication: N/A - Med Ordered
--- NOTE | 2023-12-16 14:07 | MHC.CM.PN ---
Per MD rounds patient will be ready to discharge tomorrow. DP Home self care. Patient will arrange for a ride home at discharge.
--- NOTE | 2023-12-16 14:17 | HO.OSTOMY ---
Ostomy Consult : Initial 73yr old?Male admitted to [facility] [place] on 12/12/23 for abd pain - See progress notes and H&P for detailed history.? Ostomy consult placed for diverting loop ileostomy creation by Dr. Crain on 12/12/23. ? Upon entry into patient's room, he is in bed, he is alert and oriented x 3, he currently complains of mild pain and feeling tired but wishes to continue with ostomy teaching. ?Introductions were completed, he is agreeable to continuing with consult and photo documentation. ? He reports increasing the use of his IS and ambulating the hallway. ?We began by discussing general knowledge about the Ileostomy and questions he had. ?We discussed opening and closing the ostomy pouch. He was able to independently provide a return demonstration on an empty pouch. ?He had not yet emptied his pouch. ?We discussed the importance of emptying pouch when 1/3 to 1/2 full, how to empty pouch, and lining water with toilet paper to prevent splash back. With an empty Coloplast pouch he performed a demonstration. ?Provided [employer]. Reviewed written education with patient and left at bedside for further review. ?Education Videos completed. Permission was granted for pouch assessment - intact no leak noted. Of importance the pouch was applied side facing and not at all conducive to independent emptying. He understands need for pouch change. ?? He was changed into a Coloplast [id number], 1 Piece cut to fit 40mm.?The stoma is moist and red with clear bridge in place, Peristomal tissue intact and MCJ Intact. ?He observed the pouch change and had questions that lead to further discussion. ? He seemed to have good understanding of care and material presented - will benefit from continued teaching but remains with good understanding at this time. ?After the pouch was changed he was able to open close on the pouch attached to his abdomen without coaching. ?He reported having no questions at this time. ?Patient will benefit from VNA services at time of d/c. All questions and concerns addressed at this time. Midline dressing changed - small oozing noted just below the umbillicus - no cheo in palce small areas of dehiscence with creamy serosang drainage noted - mild erythema noted. Direct care nurse notified. We discussed the following steps: 1. Empty pouch before pouch change 2. Remove pouch using push/pull technique from top to bottom 3. Cleanse stoma and skin with tap water only - no soap or baby wipes 4. Pat dry 5. Measure stoma and cut new pouch no more than 1/8 inch larger than stoma and no smaller than stoma 6. If instructed by your ostomy nurse apply paste seal to the size of the stoma and press onto skin around stoma (up to the edge of the stoma but not onto the stoma) 7. Press the new pouch into place and hold for several minutes (close pouch tail) 8. Empty pouch when 1/3 to 1/2 full 9. Change pouch twice weekly on a schedule (for example, every Saturday and ) and as needed for any leaking (feels like intense itch or burn at edge of stoma) 10. May order pre-cut pouches (already cut to size of stoma) once stoma measures the same size consistently. ?
[2023-12-16] MEDS: oxyCODONE HCl Immed Release 5 MG TABLET PO ×2 (15:08→20:42)
[2023-12-16 15:24] VITALS: BP 141/70; PULSE 82; RESP 12; TEMP 36.3; O2SAT 93
[2023-12-16 19:13] VITALS: BP 165/76; PULSE 62; RESP 17; TEMP 36.2; O2SAT 93
[2023-12-16] MEDS: Tamsulosin HCL 0.4 MG CAPSULE PO (20:42)
[2023-12-17] MEDS: Acetaminophen 1,000 MG/100 ML PIGGYBACK 400 MG IV ×2 (03:10→08:39)
[2023-12-17 03:33] VITALS: BP 155/71; PULSE 79; RESP 16; TEMP 37; O2SAT 96
[2023-12-17] MEDS: Lactated Ringers 1,000 ML 100 ML IVCONT (05:06)
[2023-12-17] MEDS: Piperacillin Sodium/Tazobactam 3.375 GM in 0.9 % Sodium Chloride 50 ML IV (05:31)
[2023-12-17] MEDS: PANTOPRAZOLE 40 MG 40 EACH PO (06:05)
[2023-12-17 07:20] VITALS: BP 145/69; PULSE 62; RESP 12; TEMP 36.2; O2SAT 95
--- NOTE | 2023-12-17 08:33 | PM.PNGS ---
Subjective Subjective Date of Service: 12/17/23 Interval history: Feels a little better this morning but reports continued belching and distention. Reports bad taste in mouth and lack of appetite. has been ambulating halls without difficulty. Physical Exam Vital Signs: Vital Signs: Last Vital Signs Temp 97.1 F 12/17/23 07:20 Pulse 62 12/17/23 07:20 Resp 12 12/17/23 07:20 BP 145/69 H 12/17/23 07:20 Pulse Ox 95 12/17/23 07:20 O2 Del Method Nasal Cannula 12/17/23 03:33 O2 Flow Rate 2 12/17/23 03:33 BMI result Body Mass Index 26.0 Const: General: comfortable, no acute distress and alert Orientation/consciousness: patient oriented x3 Resp: Effort & Inspection: normal respiratory effort GI: Other: incision with erythema and persistent drainage from superior aspect ostomy viable appearing with large amount of liquid output, bridge removed YOVANA drain with serous output Inspection: Yes distended Palpation (GI): Soft to palpation and Tenderness to palpation present (GI) Percussion: Yes tympanic to percussion Skin: General skin exam: no rashes or lesions noted Neuro: General: patient oriented x3 and moves all extremities Objective Data Active Medications Al Hydroxide/Mg Hydroxide (Magnesium Hydrox/Alum Hydrox 30 Ml Oral.Susp) 30 ml PO Q4H PRN PRN Reason: Heartburn/Nausea Last Admin: 12/14/23 09:03 Dose: 30 ml Documented By: JEREL Albuterol Sulfate (Albuterol Sulfate (0.083%) 2.5 Mg/3 Ml Vial.Neb) 2.5 mg INHALE ONCE PRN PRN Reason: Shortness of Breath/Wheezing Last Admin: 12/12/23 06:51 Dose: 2.5 mg Documented By: LUIS DANIEL Calcium Carbonate (Calcium Carbonate 750 Mg Tab.Chew) 1,500 mg PO Q6H PRN PRN Reason: Heartburn Last Admin: 12/15/23 20:51 Dose: 1,500 mg Documented By: MARIA Enoxaparin Sodium (Enoxaparin Sodium 40 Mg/0.4 Ml Syringe) 40 mg SUBCUT Q24H [facility] Last Admin: 12/16/23 11:52 Dose: 40 mg Documented By: BEBETO Hydromorphone HCl (Hydromorphone Hcl 1 Mg/Ml Syringe) 0.5 mg SUBCUT Q4H PRN; Protocol PRN Reason: Pain, Severe (Pain Scale 7-10) Last Admin: 12/14/23 00:21 Dose: 0.5 mg Documented By: RITA Acetaminophen (Ofirmev) 1,000 mg in 100 mls @ 400 mls/hr IV Q6H [facility] Last Infusion: 12/17/23 03:25 Dose: Infused Documented By: RITA Piperacillin Sod/Tazobactam (Sod 3.375 gm/ Sodium Chloride) 50 mls @ 100 mls/hr IV Q6H [facility] Last Infusion: 12/17/23 06:01 Dose: Infused Documented By: RITA Melatonin (Melatonin 3 Mg Tablet) 6 mg PO BEDTIME PRN PRN Reason: Insomnia Last Admin: 12/14/23 00:05 Dose: 6 mg Documented By: RIAT Pt Own (Pantoprazole 40 Mg Tablet, Delayed Release (Dr/Ec)) 40 mg PO DAILY@0630 [facility] Last Admin: 12/17/23 06:05 Dose: 40 mg Documented By: RITA Ondansetron HCl (Ondansetron Hcl 4 Mg/2 Ml Vial) 4 mg IVPUSH Q8H PRN PRN Reason: Nausea and Vomiting Last Admin: 12/14/23 11:35 Dose: 4 mg Documented By: JEREL Oxycodone HCl (Oxycodone Hcl Immed Release 5 Mg Tablet) 5 mg PO Q6H PRN PRN Reason: Pain, Moderate(Pain Scale 4-6) Last Admin: 12/16/23 20:42 Dose: 5 mg Documented By: JEREMY Sodium Chloride (0.9 % Sodium Chloride Flush 3 Ml Syringe) 3 ml IVFLUSH QSHIFT [facility] Last Admin: 12/16/23 23:49 Dose: 3 ml Documented By: RITA Tamsulosin HCl (Tamsulosin Hcl 0.4 Mg Capsule) 0.4 mg PO BEDTIME [facility] Last Admin: 12/16/23 20:42 Dose: 0.4 mg Documented By: JEREMY Labs 12/16/23 06:09 12/16/23 06:09 Procedures Date of Service Date of Service: 12/17/23 Progress Note: A&P Assessment and plan (1) Diverticulitis of sigmoid colon: Status: Acute Plan POD #5 s/p sigmoid resection, diverting loop ileostomy. Persistent abd distention but ileostomy functioning well. Incision with erythema and drainage from superior aspect- a few subq sutures removed and gently packed with fluff. Cont dry dressings daily and as needed. YOVANA drain removed. Cont full liquids until belching, distention improved. Increase ambulation. Dc IV zosyn, transition to PO augmentin. Patient comfortable with plan. Ostomy education. Time Spent With Patient Time: Total time managing care of this patient today ____ minutes. Quality Stroke Does the patient have a stroke diagnosis?: No VTE Prior VTE?: No VTE Risk Level:: Surgical - high VTE Device Contraindication: N/A - Device Ordered VTE Drug Contraindication: N/A - Med Ordered
[2023-12-17] MEDS: 0.9 % Sodium Chloride Flush 3 ML SYRINGE IVFLUSH ×3 (08:39→23:36)
[2023-12-17] MEDS: Amoxicillin/Potassium Clav 875 MG TABLET PO ×2 (08:45→20:05)
[2023-12-17] MEDS: Enoxaparin Sodium 40 MG/0.4 ML SYRINGE SUBCUT (11:45)
--- NOTE | 2023-12-17 12:02 | HO.OSTOMY ---
Ostomy Consult : Initial 73yr old?Male admitted to [facility] [place] on 12/12/23 for abd pain - See progress notes and H&P for detailed history.? Ostomy consult follow up for diverting loop ileostomy teaching creation by Dr. Crain on 12/12/23. ? Upon entry into patient's room, he is gwtting ready to shower. Instruction given and pouch was assessed to be full - he was instructed thewas too full will impact pouching in the future. We talked about how heavy it was and how difficult it will be to empty when that full. He reports understanding. He observed when emptied over the toilet. After the shower he was able to independently empty his pouch with out assistance. He seems to have good understanding of care and material presented - will benefit from continued teaching but remains with good understanding at this time. ?He reported having no questions at this time. ?Patient will benefit from VNA services at time of d/c. All questions and concerns addressed at this time. Midline dressing changed - small oozing noted just below the umbillicus - area of dehiscence packed with NS moist kerlix and ABD pad. Direct care nurse notified. I will continue to follow up with patient for continued teaching.
--- NOTE | 2023-12-17 14:14 | P.PNIM_ITS ---
Subjective Subjective Date of Service: 12/17/23 Interval History: Seen and evaluated this morning tolerating full liquids ostomy working less erythema and warmth around surgical wound weaned off O2 Review of Systems Review of Systems: Yes all other systems are reviewed and are negative Physical Exam 2 Vital Signs: Vital Signs: Last Vital Signs Temp 97.1 F 12/17/23 07:20 Pulse 62 12/17/23 07:20 Resp 12 12/17/23 07:20 BP 145/69 H 12/17/23 07:20 Pulse Ox 95 12/17/23 07:20 O2 Del Method Nasal Cannula 12/17/23 03:33 O2 Flow Rate 2 12/17/23 03:33 BMI result Body Mass Index 26.0 Const: Other: Constitutional : Awake, interactive, not in distress Neck : Normal inspection, Supple Cardiovascular : RRR, no JVP, no lower extremity edema Respiratory : good bilateral air entry, no crackles, wheezes or rhonchi Gastrointestinal: soft, lax, Normal bowel sounds, Non tender Skin : Warm, Dry, mild surgical wound erythema and warmth Neurological : Alert & oriented x3, No focal deficit Objective Data Active Medications Al Hydroxide/Mg Hydroxide (Magnesium Hydrox/Alum Hydrox 30 Ml Oral.Susp) 30 ml PO Q4H PRN PRN Reason: Heartburn/Nausea Last Admin: 12/14/23 09:03 Dose: 30 ml Documented By: JEREL Albuterol Sulfate (Albuterol Sulfate (0.083%) 2.5 Mg/3 Ml Vial.Neb) 2.5 mg INHALE ONCE PRN PRN Reason: Shortness of Breath/Wheezing Last Admin: 12/12/23 06:51 Dose: 2.5 mg Documented By: LUIS DANIEL Amoxicillin/Clavulanate Potassium (Amoxicillin/Potassium Clav 875 Mg Tablet) 875 mg PO Q12H [facility] Last Admin: 12/17/23 08:45 Dose: 875 mg Documented By: EFREN Calcium Carbonate (Calcium Carbonate 750 Mg Tab.Chew) 1,500 mg PO Q6H PRN PRN Reason: Heartburn Last Admin: 12/15/23 20:51 Dose: 1,500 mg Documented By: MARIA Enoxaparin Sodium (Enoxaparin Sodium 40 Mg/0.4 Ml Syringe) 40 mg SUBCUT Q24H [facility] Last Admin: 12/17/23 11:45 Dose: 40 mg Documented By: EFREN Hydromorphone HCl (Hydromorphone Hcl 1 Mg/Ml Syringe) 0.5 mg SUBCUT Q4H PRN; Protocol PRN Reason: Pain, Severe (Pain Scale 7-10) Last Admin: 12/14/23 00:21 Dose: 0.5 mg Documented By: RITA Melatonin (Melatonin 3 Mg Tablet) 6 mg PO BEDTIME PRN PRN Reason: Insomnia Last Admin: 12/14/23 00:05 Dose: 6 mg Documented By: RITA Pt Own (Pantoprazole 40 Mg Tablet, Delayed Release (Dr/Ec)) 40 mg PO DAILY@0630 [facility] Last Admin: 12/17/23 06:05 Dose: 40 mg Documented By: RITA Ondansetron HCl (Ondansetron Hcl 4 Mg/2 Ml Vial) 4 mg IVPUSH Q8H PRN PRN Reason: Nausea and Vomiting Last Admin: 12/14/23 11:35 Dose: 4 mg Documented By: JEREL Oxycodone HCl (Oxycodone Hcl Immed Release 5 Mg Tablet) 5 mg PO Q6H PRN PRN Reason: Pain, Moderate(Pain Scale 4-6) Last Admin: 12/16/23 20:42 Dose: 5 mg Documented By: JEREMY Sodium Chloride (0.9 % Sodium Chloride Flush 3 Ml Syringe) [address] [facility] Last Admin: 12/17/23 08:39 Dose: 3 ml Documented By: EFREN Tamsulosin HCl (Tamsulosin Hcl 0.4 Mg Capsule) 0.4 mg PO BEDTIME [facility] Last Admin: 12/16/23 20:42 Dose: 0.4 mg Documented By: JEREMY Labs 12/16/23 06:09 12/16/23 06:09 Assessment and Plan (1) Acute atelectasis: Status: Acute Plan A 73 years old male with PMH of recurrent diverticulitis who presented for exploratory laparotomy and partial colectomy for recurrent diverticulitis 2 days after surgery with increase SOB and drop in O2 saturation. Acute Atelactasis post abdominal surgery improved, Weaned Off O2 Encourage incentive spirometry PT therapy on Antibiotics for surgical wound complication not for lung infection Wound infection on Augmentin per surgical team no evidence of sepsis will continue to follow the patient with you as needed Quality Stroke Does the patient have a stroke diagnosis?: No VTE Prior VTE?: No VTE Risk Level:: Surgical - high VTE Device Contraindication: N/A - Device Ordered VTE Drug Contraindication: N/A - Med Ordered
[2023-12-17 15:17] VITALS: BP 134/66; PULSE 65; RESP 12; TEMP 36.4; O2SAT 94
[2023-12-17 19:09] VITALS: BP 141/64; PULSE 77; RESP 13; TEMP 36.2; O2SAT 93
[2023-12-17] MEDS: Tamsulosin HCL 0.4 MG CAPSULE PO (20:05)
[2023-12-17] MEDS: oxyCODONE HCl Immed Release 5 MG TABLET PO (20:10)
[2023-12-18 03:25] VITALS: BP 127/63; PULSE 73; RESP 16; TEMP 36.2; O2SAT 92
[2023-12-18] MEDS: PANTOPRAZOLE 40 MG 40 EACH PO (06:12)
[2023-12-18 08:00] VITALS: BP 124/70; PULSE 76; RESP 16; TEMP 36.3; O2SAT 93
[2023-12-18] MEDS: Amoxicillin/Potassium Clav 875 MG TABLET PO (08:18)
[2023-12-18] MEDS: 0.9 % Sodium Chloride Flush 3 ML SYRINGE IVFLUSH (08:18)
--- NOTE | 2023-12-18 08:46 | PM.DS ---
DS: Providers Provider Date of Service: 12/18/23 Date of admission: 12/12/23 11:46 Date of discharge: 12/18/23 Primary care physician: Lindsay Kelley MD Attending physician on admission: Alfred Crain Consults: 12/12/23 13:09 Consult to Ostomy Care Routine 12/14/23 07:55 Consult to Hospitalist Routine Comment: Consulting Provider: Hospitalist Reason For Exam: irregular heart rate, desats Attending physician on discharge: Alfred Crain DS: Diagnosis Discharge Diagnosis (1) Diverticulitis of sigmoid colon: Status: Acute DS: Summary Hospital Course Hospital Course: HPI AT ADMISSION: Patient presents with for follow-up. CT scan demonstrates improving diverticulitis. Patient is completely asymptomatic. He has tolerating a diet. Having regular bowel habits. He does have history of occasional constipation. Patient had colonoscopy on 06/16 which only demonstrated diverticular disease. This was done at [facility]. Patient has had prior exploratory laparotomy for a splenic issue in . He has had 3 inguinal hernia repairs. Patient and significant other would like for him to undergo elective resection for his recurrent sigmoid diverticulitis. He now presents for the planned procedure. HOSPITAL COURSE: On 12/12/23, exploratory laparotomy, extensive enterolysis, takedown splenic flexure, sigmoid resection, colo -rectal trans -anal primary anastomosis, proctosigmoidoscopy, diverting loop ileostomy was performed by Dr. Crain without complication. The patient tolerated the procedure well and was admitted post operatively. He did well post operatively but had a slow recovery course. On POD#1, he was tolerating clear liquids but did not have much output via his ostomy. It was viable appearing. His fan and left uteral stent was removed. He was ambulated. He developed shortness of breath the following day and hospitalist consult was obtained. He was placed on supplemental oxygen. He was found to have atelectasis by chest x-ray, incentive spirometer and increasing activity was encouraged. He remained distended with belching for a few days and therefore clear liquids were continued. He developed incisional drainage and erythema and he was empirically started on IV zozsyn and then transitioned to PO augmentin. Due to the erythema, a couple of subq sutures of the superior aspect of incision were opened and probed without evidence of collection. He did have good ostomy output with viable appearing ostomy. Ileostomy education was performed and ostomy bridge was removed. His distention decreased and belching resolved. His diet was advanced to solids. On the day of discharge, he was tolerating a solid diet without nausea or vomiting and his pain was controlled on PO analgesics. He was ambulating without difficulty. His ostomy was viable appearing with good output. His incision had mild erythema and small open wound superiorly. He was discharged to home on 12/18/23 with VNA services in stable condition. He was discharged on a course of PO augmentin. He is to follow up in the office in 1 week. Wound care: fluffs, abd dressing to incision daily and PRN while draining and open Ostomy: coloplast [id number], apply appliance every 3-4 days and as needed. Status at Discharge Functional status at discharge: independent ambulation Overall status at discharge: patient is progressing back to baseline Time Attestation Discharge Coordination Time (in mins): 40 Quality: Safe Use of Opioids Does Pt have an Active Cancer Diagnosis on the Problem List?: No Quality: Stroke Does the patient have a stroke diagnosis?: No Physical Exam Vital Signs: Vital Signs: Last Vital Signs Temp 97.4 F 12/18/23 08:00 Pulse 76 12/18/23 08:00 Resp 16 12/18/23 08:00 BP 124/70 12/18/23 08:00 Pulse Ox 93 12/18/23 08:00 O2 Del Method Room Air 12/18/23 08:00 O2 Flow Rate 2 12/17/23 03:33 BMI result Body Mass Index 26.0 Const: General: comfortable, no acute distress and alert Orientation/consciousness: patient oriented x3 Resp: Effort & Inspection: normal respiratory effort GI: Other: ileostomy beefy red, large amount of liquid stool in appliance incision with mild erythema superiorly, small open wound with moderate drainage Inspection: Yes distended (mild ) Palpation (GI): Soft to palpation, Tenderness to palpation present (GI) (incisional) and no guarding Skin: General skin exam: no rashes or lesions noted Neuro: General: patient oriented x3 and moves all extremities DS: Data Data Completed and Pending Completed studies during hospitalization [Text1]: 12/12/23 11:04 Surgical [PTH] Routine A. Colon, sigmoid, segmental resection: Diverticular-associated segmental colitis with marked associated abscess formation, fibrosis, granulation tissue, fat necrosis and ischemic injury. B. Colon, EEA donuts, excision: Colonic tissue with mild mucosal congestion; otherwise within normal limits Discharge Plan Discharge Anticipated Discharge Date/Time: 12/18/23 15:26 Patient Disposition: Home Health Service Discharge Diagnosis: Symptomatic Sigmoid diverticular disease Referrals: J[facility]LL[facility] [Outside] - 1 Week Lindsay Kelley MD [Primary Care Provider] - 1 Week Alfred Crain MD [Physician] - 1 Week Discharge Medications: New hydrocodone-acetaminophen 5-325 mg tablet 1 tab PO Q4-6H PRN (Reason: pain) Qty: 30 0RF Rx Instructions: Partial Fill upon patient request. amoxicillin-pot clavulanate 875-125 mg Tablet 1 tab PO Q12H Qty: 10 0RF Continued tamsulosin 0.4 mg capsule 0.4 mg PO BEDTIME 14 Days Qty: 14 0RF azelastine 137 mcg (0.1 %) aerosol,spray 2 spray intranasal BID cetirizine 10 mg tablet 10 mg PO DAILY pantoprazole 40 mg tablet,delayed release (DR/EC) 40 mg PO DAILY@0630 Discharge Orders: Discharge Order (Routine); Ordered 12/18/23 Ordered By: Felisa Torres Diet: Advance to usual diet Activity on Discharge: No heavy lifting Stand Alone Forms: Patient Portal Discharge page Print Language: [place]ese Activity Restrictions/Additional Instructions: Ice to wound 20 minutes several times today and tomorrow. May shower. No strenuous activities. Wound care: dry fluffs, abd dressing to incision while wound remains open and draining. Change daily and as needed. Ostomy care: apply and change appliance every 3-4 days and as needed. Care Plan Goals: Convalescence Health Concerns: No new issues Plan of Treatment: Per discharge instructions Assessment: Stable Patient Instructions: Ileostomy Care (DC), Ileostomy Diet (DC) Discharge Date/Time: 12/18/23 15:43
--- NOTE | 2023-12-18 09:51 | HO.PM.IMPN ---
Subjective Subjective Date of Service: 12/18/23 Interval History: Seen and evaluated this morning ostomy working weaned off O2 and tolerating full liquid Review of Systems Review of Systems: Yes all other systems are reviewed and are negative Physical Exam Vital Signs: Vital Signs: Last Vital Signs Temp 97.4 F 12/18/23 08:00 Pulse 76 12/18/23 08:00 Resp 16 12/18/23 08:00 BP 124/70 12/18/23 08:00 Pulse Ox 93 12/18/23 08:00 O2 Del Method Room Air 12/18/23 08:00 O2 Flow Rate 2 12/17/23 03:33 BMI result Body Mass Index 26.0 Const: Other: Constitutional : Awake, interactive, not in distress Neck : Normal inspection, Supple Cardiovascular : RRR, no JVP, no lower extremity edema Respiratory : good bilateral air entry, no crackles, wheezes or rhonchi Gastrointestinal: soft, lax, Normal bowel sounds, Non tender Skin : Warm, Dry, mild surgical wound erythema and warmth Neurological : Alert & oriented x3, No focal deficit Objective Data Active Medications Al Hydroxide/Mg Hydroxide (Magnesium Hydrox/Alum Hydrox 30 Ml Oral.Susp) 30 ml PO Q4H PRN PRN Reason: Heartburn/Nausea Last Admin: 12/14/23 09:03 Dose: 30 ml Documented By: JEREL Albuterol Sulfate (Albuterol Sulfate (0.083%) 2.5 Mg/3 Ml Vial.Neb) 2.5 mg INHALE ONCE PRN PRN Reason: Shortness of Breath/Wheezing Last Admin: 12/12/23 06:51 Dose: 2.5 mg Documented By: LUIS DANIEL Amoxicillin/Clavulanate Potassium (Amoxicillin/Potassium Clav 875 Mg Tablet) 875 mg PO Q12H [facility] Last Admin: 12/18/23 08:18 Dose: 875 mg Documented By: JEREL Calcium Carbonate (Calcium Carbonate 750 Mg Tab.Chew) 1,500 mg PO Q6H PRN PRN Reason: Heartburn Last Admin: 12/15/23 20:51 Dose: 1,500 mg Documented By: MARIA Enoxaparin Sodium (Enoxaparin Sodium 40 Mg/0.4 Ml Syringe) 40 mg SUBCUT Q24H [facility] Last Admin: 12/17/23 11:45 Dose: 40 mg Documented By: EFREN Hydromorphone HCl (Hydromorphone Hcl 1 Mg/Ml Syringe) 0.5 mg SUBCUT Q4H PRN; Protocol PRN Reason: Pain, Severe (Pain Scale 7-10) Last Admin: 12/14/23 00:21 Dose: 0.5 mg Documented By: RITA Melatonin (Melatonin 3 Mg Tablet) 6 mg PO BEDTIME PRN PRN Reason: Insomnia Last Admin: 12/14/23 00:05 Dose: 6 mg Documented By: RITA Pt Own (Pantoprazole 40 Mg Tablet, Delayed Release (Dr/Ec)) 40 mg PO DAILY@0630 [facility] Last Admin: 12/18/23 06:12 Dose: 40 mg Documented By: RITA Ondansetron HCl (Ondansetron Hcl 4 Mg/2 Ml Vial) 4 mg IVPUSH Q8H PRN PRN Reason: Nausea and Vomiting Last Admin: 12/14/23 11:35 Dose: 4 mg Documented By: JEREL Oxycodone HCl (Oxycodone Hcl Immed Release 5 Mg Tablet) 5 mg PO Q6H PRN PRN Reason: Pain, Moderate(Pain Scale 4-6) Last Admin: 12/17/23 20:10 Dose: 5 mg Documented By: MARIA Sodium Chloride (0.9 % Sodium Chloride Flush 3 Ml Syringe) [facility] Last Admin: 12/18/23 08:18 Dose: 3 ml Documented By: JEREL Tamsulosin HCl (Tamsulosin Hcl 0.4 Mg Capsule) 0.4 mg PO BEDTIME [facility] Last Admin: 12/17/23 20:05 Dose: 0.4 mg Documented By: MARIA Labs 12/16/23 06:09 12/16/23 06:09 Assessment and Plan (1) Acute atelectasis: Status: Acute Plan A 73 years old male with PMH of recurrent diverticulitis who presented for exploratory laparotomy and partial colectomy for recurrent diverticulitis 2 days after surgery with increase SOB and drop in O2 saturation. Acute Atelactasis post abdominal surgery Weaned Off O2. Encourage incentive spirometry. Wound infection on Augmentin per surgical team will sign off. please contact hospitalist team for any further questions. Quality Stroke Does the patient have a stroke diagnosis?: No VTE Prior VTE?: No VTE Risk Level:: Surgical - high VTE Device Contraindication: N/A - Device Ordered VTE Drug Contraindication: N/A - Med Ordered
[2023-12-18] MEDS: Enoxaparin Sodium 40 MG/0.4 ML SYRINGE SUBCUT (11:41)
--- NOTE | 2023-12-18 12:21 | PM.PNGS ---
Subjective Subjective Date of Service: 12/18/23 Interval history: Feels improved, belching resolved and bloating improved. Wants to eat solid food. Pain well controlled. Emptying own ostomy appliance. Physical Exam Vital Signs: Vital Signs: Last Vital Signs Temp 97.4 F 12/18/23 08:00 Pulse 76 12/18/23 08:00 Resp 16 12/18/23 08:00 BP 124/70 12/18/23 08:00 Pulse Ox 93 12/18/23 08:00 O2 Del Method Room Air 12/18/23 08:00 O2 Flow Rate 2 12/17/23 03:33 BMI result Body Mass Index 26.0 Const: General: comfortable, no acute distress and alert Orientation/consciousness: patient oriented x3 Resp: Effort & Inspection: normal respiratory effort GI: Other: incision with small opening superiorly, fibroserous drainage noted, erythema improved but persists superiorly ostomy beefy red, flatus and output in appliance Palpation (GI): Soft to palpation, Tenderness to palpation present (GI) (mild incisional) and no guarding Skin: General skin exam: no rashes or lesions noted Neuro: General: patient oriented x3 and moves all extremities Objective Data Active Medications Al Hydroxide/Mg Hydroxide (Magnesium Hydrox/Alum Hydrox 30 Ml Oral.Susp) 30 ml PO Q4H PRN PRN Reason: Heartburn/Nausea Last Admin: 12/14/23 09:03 Dose: 30 ml Documented By: JEREL Albuterol Sulfate (Albuterol Sulfate (0.083%) 2.5 Mg/3 Ml Vial.Neb) 2.5 mg INHALE ONCE PRN PRN Reason: Shortness of Breath/Wheezing Last Admin: 12/12/23 06:51 Dose: 2.5 mg Documented By: LUIS DANIEL Amoxicillin/Clavulanate Potassium (Amoxicillin/Potassium Clav 875 Mg Tablet) 875 mg PO Q12H [facility] Last Admin: 12/18/23 08:18 Dose: 875 mg Documented By: JEREL Calcium Carbonate (Calcium Carbonate 750 Mg Tab.Chew) 1,500 mg PO Q6H PRN PRN Reason: Heartburn Last Admin: 12/15/23 20:51 Dose: 1,500 mg Documented By: MARIA Enoxaparin Sodium (Enoxaparin Sodium 40 Mg/0.4 Ml Syringe) 40 mg SUBCUT Q24H [facility] Last Admin: 12/18/23 11:41 Dose: 40 mg Documented By: JEREL Hydromorphone HCl (Hydromorphone Hcl 1 Mg/Ml Syringe) 0.5 mg SUBCUT Q4H PRN; Protocol PRN Reason: Pain, Severe (Pain Scale 7-10) Last Admin: 12/14/23 00:21 Dose: 0.5 mg Documented By: RITA Melatonin (Melatonin 3 Mg Tablet) 6 mg PO BEDTIME PRN PRN Reason: Insomnia Last Admin: 12/14/23 00:05 Dose: 6 mg Documented By: RITA Pt Own (Pantoprazole 40 Mg Tablet, Delayed Release (Dr/Ec)) 40 mg PO DAILY@0630 [facility] Last Admin: 12/18/23 06:12 Dose: 40 mg Documented By: RITA Ondansetron HCl (Ondansetron Hcl 4 Mg/2 Ml Vial) 4 mg IVPUSH Q8H PRN PRN Reason: Nausea and Vomiting Last Admin: 12/14/23 11:35 Dose: 4 mg Documented By: JEREL Oxycodone HCl (Oxycodone Hcl Immed Release 5 Mg Tablet) 5 mg PO Q6H PRN PRN Reason: Pain, Moderate(Pain Scale 4-6) Last Admin: 12/17/23 20:10 Dose: 5 mg Documented By: MARIA Sodium Chloride (0.9 % Sodium Chloride Flush 3 Ml Syringe) 3 ml IVFLUSH QSHIFT [facility] Last Admin: 12/18/23 08:18 Dose: 3 ml Documented By: JEREL Tamsulosin HCl (Tamsulosin Hcl 0.4 Mg Capsule) 0.4 mg PO BEDTIME [facility] Last Admin: 12/17/23 20:05 Dose: 0.4 mg Documented By: MARIA Labs 12/16/23 06:09 12/16/23 06:09 Procedures Date of Service Date of Service: 12/18/23 Progress Note: A&P Assessment and plan (1) Diverticulitis of sigmoid colon: Status: Acute Plan POD #6 s/p sigmoid resection, diverting loop ileostomy. Abd distention improved. Ostomy continues to function well. Incisional erythema improved, remains superiorly, drainage from superior aspect. Cont dry dressings daily and as needed. Will advance to solid diet. Cont PO augmentin. Patient comfortable with plan. Will reassess for possible dc to home later today if tolerating solid diet. Will need VNA services. Time Spent With Patient Time: Total time managing care of this patient today ____ minutes. Quality Stroke Does the patient have a stroke diagnosis?: No VTE Prior VTE?: No VTE Risk Level:: Surgical - high VTE Device Contraindication: N/A - Device Ordered VTE Drug Contraindication: N/A - Med Ordered
--- NOTE | 2023-12-18 13:50 | MHC.CM.PN ---
Addendum entered by Donna Hurtado 12/18/23 14:51: Patient discharged home today. [facility] has been notified. Original Note: IMM 12/18/23 Met with patient to discuss discharge plan. Preference for [facility]. A referral was sent. They have accepted the patient for services. Supplies for ostomy, incision and drain have been given to the patient. Anticipate discharge home today with [facility]. Patients will provide transportation home.
[2023-12-18] MEDS: oxyCODONE HCl Immed Release 5 MG TABLET PO (15:08)
== END 2023-12-18 15:43 | disposition home health service (06) | DRG 330 ==
LOC: HO.SSSA 11:49 → HO.S3 11:57
PROVIDERS: Nurse Practitioner; Student in an Organized Health Care Education/Training Program; Surgery; Urology; Admitting Provider Physician Assistant Surgical; PCP Internal Medicine; Visit Provider Surgery
PROC: 0T9780Z Drainage of Left Ureter with Drainage Device, Via Natural or Artificial Opening Endoscopic (ICD-10-PCS; principal; 2023-12-12 07:30)
PROC: 0DBN0ZZ Excision of Sigmoid Colon, Open Approach (ICD-10-PCS; CPT 49000; 2023-12-12 07:30)
DX: K57.32 Diverticulitis of large intestine without perforation or abscess without bleeding (principal); J95.89 Other postprocedural complications and disorders of respiratory system, not elsewhere classified; T81.41XA Infection following a procedure, superficial incisional surgical site, initial encounter; J98.11 Atelectasis; K21.9 Gastro-esophageal reflux disease without esophagitis; K66.0 Peritoneal adhesions (postprocedural) (postinfection); F17.210 Nicotine dependence, cigarettes, uncomplicated; Z71.6 Tobacco abuse counseling; Z79.899 Other long term (current) drug therapy
CPT/HCPCS: 36415; 71045; 80048; 80053; 82565; 83880; 85025; 85027; 86850; 86900; 86901; 88305; 88307; 88309; 93005; 94640; 97161; C1758; C1769; J0131; J0690; J1170; J1650; J2250; J2371; J2405; J2543; J2598; J2704; J2795; J3010; J7120

== ENCOUNTER 2023-12-12 11:46 | Outpatient (BNV) | payer MEDICARE, SELFPAY | END 2023-12-14 08:00 | PROVIDERS: Admitting Provider Physician Assistant Surgical; PCP Internal Medicine; Visit Provider Internal Medicine Cardiovascular Disease | DX: I49.3 Ventricular premature depolarization (principal) | CPT/HCPCS: 93010 ==

== ENCOUNTER → 2023-12-12 11:46 | Outpatient (BNV) | payer MEDICARE, SELFPAY | PROVIDERS: Admitting Provider Physician Assistant Surgical; PCP Internal Medicine; Visit Provider Physician Assistant Surgical | DX: K57.32 Diverticulitis of large intestine without perforation or abscess without bleeding (principal) | CPT/HCPCS: 44139; 44146; 99024 ==

== ENCOUNTER → 2023-12-12 11:46 | Outpatient (BNV) | payer MEDICARE, SELFPAY | PROVIDERS: Admitting Provider Physician Assistant Surgical; PCP Internal Medicine; Visit Provider Student in an Organized Health Care Education/Training Program | DX: J98.11 Atelectasis (principal) | CPT/HCPCS: 99222; 99231 ==

== ENCOUNTER → 2023-12-12 11:46 | Outpatient (BNV) | payer MEDICARE, SELFPAY | PROVIDERS: Admitting Provider Physician Assistant Surgical; PCP Internal Medicine; Visit Provider Urology | DX: K57.32 Diverticulitis of large intestine without perforation or abscess without bleeding (principal) | CPT/HCPCS: 52005 ==

== ENCOUNTER 2023-12-24 13:53 | Outpatient (AMB) | payer MEDICARE, SELFPAY ==
--- NOTE | 2023-12-24 14:08 | MHC.OFFVIS ---
Intake Visit Reasons: s/p sigmoid resection Intake Note: Patient here s/p sigmoid resection. Reports incisions healing well. Patient c/o: mild draining from lower abd incision. Taking tylenol and ibuprofen. SX: 12-12-23. Associate Merchandiser Required: No Accompanied by: Self / Same As Patient Allergies No Known Allergies Allergy (Verified 12/24/23 14:09) HPI Comments Details: Patient presents for follow-up. He has tolerating a diet. His ostomy is working. He is undergoing local wound care for the part of his incision. He is increasing his activity level. Patient was being seen by Dr. Sanon for unrelated urologic issues. [facility] Medical History Back pain Seasonal allergic rhinitis Palpitations GERD (gastroesophageal reflux disease) Diverticulitis Nephrolithiasis Splenic cyst Surgical History Diverticulitis of sigmoid colon (12/12/23) Hx of cystoscopy H/O colonoscopy History of surgery History of left inguinal hernia repair Hx of right inguinal hernia repair Social History Household Members: Spouse Housing: House Are you a primary patient care technician instructor to a significant other at home: No Do you presently have visiting nurse or other home services: No ( has [facility] currently for recent fall) Comment: counts correct Patient Tobacco Use Status: Current everyday Tobacco user Tobacco use type: Cigarette Cigarettes Per Day: 5 Years Smoked: 50 service: No Physical Exam GI Other: Ostomy functioning well. Midline incision has good 1st attention healing up to the very top which was partially opened secondary to a stitch abscess and is healing by granulating tissue with no evidence of any purulence. Assessment & Plan Assessment & Plan (1) Postop check: Code(s): Z09 - Encounter for follow-up examination after completed treatment for conditions other than malignant neoplasm Category: Surgical Plan Patient is to slowly but steadily increase his activity level. Avoid heavy lifting/strenuous activities. Local wound care, and will see me in approximately 3 weeks' time or p.r.n.. All questions answered Coding Level of Care Code Global (02547) Diagnoses Postop check Z09
== END 2023-12-24 14:16 | disposition home or self-care (01) ==
PROVIDERS: PCP Internal Medicine; Visit Provider Surgery
DX: Z09 Encounter for follow-up examination after completed treatment for conditions other than malignant neoplasm (principal)
CPT/HCPCS: 99024

== ENCOUNTER → 2023-12-24 13:53 | Outpatient (BNVA) | payer MEDICARE, SELFPAY | PROVIDERS: PCP Internal Medicine; Visit Provider Surgery | DX: Z09 Encounter for follow-up examination after completed treatment for conditions other than malignant neoplasm (principal) | CPT/HCPCS: 99212 ==

== ENCOUNTER 2024-01-03 11:14 | Outpatient (AMB) | payer MEDICARE, SELFPAY ==
--- NOTE | 2024-01-03 11:33 | A.OFFVIS_ITS ---
Intake Visit Reasons: Stent Removal Intake Note: Patient is Present for Cystoscopy with stent removal Urology Med: Tamsulosin Antibiotic Allergy:None Blood Thinner: None URO- G Disposable Cystoscope lot: [id number] exp:08/29/2026 Allergies No Known Allergies Allergy (Verified 03/31/24 11:43) Medication List - Last Reconciled 01/03/24 by Thomas Sanon MD amoxicillin-pot clavulanate 875-125 mg 1 tab PO Q12H azelastine 2 sprays intranasal BID cetirizine 10 mg PO DAILY pantoprazole 40 mg PO DAILY@0630 tamsulosin 0.4 mg PO BEDTIME 90 days HPI Comments Details: Jose Alejandro is a pleasant male. He is a patient of Dr. Kelley. He is seen for the following urologic conditions - nephrolithiasis Here for stent removal Would recommend continue tamsulosin for bladder diverticula Nephrolithiasis Recurrent Imaging - 10/19 CT 1.2 x 0.9 cm calculus impacted in the right ureterovesical junction, left stone 8 mm - bilateral small bladder diverticulum Intervention - 11/19 right ureteroscopy with laser lithotripsy Stone composition - 11/19 Calcium Oxalate Dihydrate (Weddellite) 15% Calcium Oxalate Monohydrate (Whewellite) 70% Carbonate Apatite (Dahllite) 15% PFSH Medical History (Updated 03/29/24 @ 00:01 by Walt Marrufo) Back pain Seasonal allergic rhinitis Palpitations GERD (gastroesophageal reflux disease) Diverticulitis Nephrolithiasis Splenic cyst Surgical History (Updated 03/31/24 @ 12:52 by Alfred Crain MD) Postop check Status post reversal of ileostomy (03/19/24) Hx of cystoscopy H/O colonoscopy History of surgery History of left inguinal hernia repair Hx of right inguinal hernia repair Diverticulitis of sigmoid colon (12/12/23) Social History Household Members: Spouse Housing: House Are you a primary chiropractic care to a significant other at home: No Do you presently have visiting nurse or other home services: No Comment: counts correct Patient Tobacco Use Status: Current everyday Tobacco user Tobacco use type: Cigar Cigarettes Per Day: 10 Years Smoked: 50 service: No Review of Systems Const Denies chills and Denies fever(s) Card Reports no additional complaints and Denies syncope Resp Denies cough GI Denies abdominal pain and Denies heartburn Reports as per HPI and Denies change in libido Neuro Denies syncope Psych Denies change in libido Endo Denies change in libido Physical Exam Const General: cooperative, healthy appearing, comfortable and no acute distress Orientation/consciousness: patient oriented x3 HEENT Face and sinus: Yes normal facial exam Mouth: moist mucous membranes Neck Neck: Yes normal visual inspection, Yes full ROM and Yes trachea midline Chest Chest palpation & inspection: normal inspection of the chest Resp Effort & Inspection: normal respiratory effort, able to speak in complete sentences and no respiratory distress GI Inspection: Yes normal to inspection Back/Spine/Pelvis Cervical Spine: normal cervical lordosis Thoracic/Lumbar Spine: thoracic and lumbar spine normal to inspection Skin General skin exam: no rashes or lesions noted Neuro General: patient oriented x3, gait normal, tone normal and moves all extremities Extrem General: Yes normal to inspection and Yes capillary refill normal Office Procedures Cystoscopy Consent Discussed risk and benefit or proposed procedure with the patient. Information consent for procedure given to the patient. Discussed technical aspects, risks, benefits and alternatives in full. Addressed all of the patient's questions and concerns regarding the procedure. The patient demonstrated knowledge and understanding. They wish to proceed with this procedure. Preparation The patient was prepped in the usual manner. A fish farm manager was present and in the room. Genitalia was prepped with betadine solution in a sterile manner. Lidocaine Jelly 2% was placed into the urethra and 16Fr flexible Olympus cystoscope was inserted into the meatus after adequate lubrication. Procedure A well lubricated 16 Ugandan cystoscope was placed No abnormality noted of urethra during placement Indwelling stent seen within bladder emerging from right ureteric orifices The stent was grasped with a 3 prong grasper and removed without difficulty The patient tolerated the procedure well [id number] with stent removal DISPOSABLE SCOPE URO-G FLEXIBLE SCOPE Procedure code (CPT) selection complete Office Meds lidocaine HCl 2 % mucosal jelly in applicator Performing Provider: Thomas Sanon MD Performing [facility] Administered by: Vishnu Ramos LPN on 01/03/24 11:41 Dose Route Admin Location Dispensed Lot Number Expiration Date [facility] Paving Plant Operator 10 mL intra-urethral 10 mL nitrofurantoin monohydrate/macrocrystals 100 mg capsule Performing Provider: Thomas Sanon MD Performing Location: [facility] Administered by: Vishnu Ramos LPN on 01/03/24 11:41 Dose Route Admin Location Dispensed Lot Number Expiration Date NDC Paving Plant Operator 100 mg PO 1 cap naproxen 500 mg tablet Performing Provider: Thomas Sanon MD Performing Location: [facility] Administered by: Vishnu Ramos LPN on 01/03/24 11:41 Dose Route Admin Location Dispensed Lot Number Expiration Date NDC Paving Plant [employer] 500 mg PO 1 tab Results AMB Urinalysis, Automated UA Leukoctes 125 Jim/uL Last Edit by SOO Antoine on 01/03/24 11:42 UA Nitrite Negative Last Edit by SOO Antoine on 01/03/24 11:42 UA Urobilinogen 1 mg/dL Last Edit by XUAN AntoineA on 01/03/24 11:42 UA Protein 300 mg/dL Last Edit by Gaye Weeks Sofiya on 01/03/24 11:42 UA pH 6.0 Last Edit by Gaye Weeks A on 01/03/24 11:42 UA Blood 200 Everardo/uL Last Edit by SOO Antoine on 01/03/24 11:42 UA Specific [place] 1.025 Last Edit by XUAN AntoineA on 01/03/24 11: 42 UA Ketone Negative Last Edit by SOO Antoine on 01/03/24 11:42 UA Bilirubin 0 mg/dL Last Edit by Gaye Weeks Sofiya on 01/03/24 11:42 UA Glucose 0 mg/dL Last Edit by Gaye Weeks [facility] on 01/03/24 11:42 Results Reviewed Results Reviewed: Laboratory Last Values Urine pH (Auto) 6.0 01/03/24 11:34 Specific [place] (Auto) 1.025 01/03/24 11:34 Urine Protein (Auto) 300 mg/dL 01/03/24 11:34 Glucose (UA)(Auto) 0 mg/dL 01/03/24 11:34 Urine Ketones (Auto) Negative 01/03/24 11:34 Urine Blood (Auto) 200 Everardo/uL 01/03/24 11:34 Urine Nitrite (Auto) Negative 01/03/24 11:34 Urine Bilirubin (Auto) 0 mg/dL 01/03/24 11:34 Urine Urobilinogen (Auto) 1 mg/dL 01/03/24 11:34 Leukocyte Esterase (Auto) 125 Jim/uL 01/03/24 11:34 Assessment & Plan Assessment & Plan (1) Nephrolithiasis: Code(s): N20.0 - Calculus of kidney Category: Medical (2) Bladder outlet obstruction: Code(s): N32.0 - Bladder-neck obstruction Category: Medical Plan Three-month follow-up renal ultrasound Add tamsulosin Orders: Orders AMB Cystoscopy 01/03/24 N20.0 - Calculus of kidney AMB Urinalysis Automated 01/03/24 Z13.9 - Encounter for screening, unspecified US renal BI 3 Months N20.0 - Calculus of kidney Patient Instructions: Imaging studies, laboratory and physical exam results were discussed and reviewed in detail. No major barriers to patient understanding were identified. An opportunity to ask questions regarding the treatment plan was provided. All questions were answered. The patient expressed understanding and agreement with the above treatment plan. The patient is aware they should contact our office by phone for worsening of their current condition or the appearance of new urologic symptoms. Compliance is encouraged with any medications and followup testing that is ordered. It is a privilege to participate in the urologic care of your patient. If you have any questions or concerns regarding treatment for the above conditions, or other urologic issues, please do not hesitate to contact me. The office telephone contact is [phone]. This note is constructed using voice recognition software. While every effort has been made to ensure accuracy healthcare analyst errors may have been included. Yours sincerely, Dr Thomas Sanon MD, [facility] - Urology Providers of Expert, Compassionate Care for the Genitourinary System Coding Level of Care Code Est Pt Level 3 (30542) Diagnoses Nephrolithiasis N20.0 Bladder outlet obstruction N32.0 CPT Codes Cystoscopy - CPT: 66700-[id number] with stent removal ([id number])
== END 2024-01-03 12:08 | disposition home or self-care (01) ==
PROVIDERS: PCP Internal Medicine; Visit Provider Urology
DX: N20.0 Calculus of kidney (principal); N32.0 Bladder-neck obstruction
CPT/HCPCS: 99499

== ENCOUNTER → 2024-01-03 11:14 | Outpatient (BNVA) | payer MEDICARE, SELFPAY | PROVIDERS: PCP Internal Medicine; Visit Provider Urology | DX: N20.0 Calculus of kidney (principal); N32.3 Diverticulum of bladder; N32.0 Bladder-neck obstruction; Z46.6 Encounter for fitting and adjustment of urinary device | CPT/HCPCS: 81003 ==

== ENCOUNTER 2024-01-07 10:58 | Outpatient (AMB) | payer OTHER, MEDICARE, SELFPAY ==
--- NOTE | 2024-01-07 11:01 | A.OFFVIS_ITS ---
Intake Visit Reasons: s/p sigmoid resection Intake Note: Patient here s/p sigmoid resection. Reports incision healing well. Patient c/o: reports everything working after stent removal. Taking tamsulosin now. SX: 12-12-2023. Accelerator Technician Required: No Accompanied by: Self / Same As Patient Allergies No Known Allergies Allergy (Verified 01/07/24 11:02) Medication List - Last Reconciled 01/07/24 by Alfred Crain MD amoxicillin-pot clavulanate 875-125 mg 1 tab PO Q12H azelastine 2 sprays intranasal BID cetirizine 10 mg PO DAILY pantoprazole 40 mg PO DAILY@0630 tamsulosin 0.4 mg PO BEDTIME 90 days HPI Comments Details: Patient presents for follow-up. He is tolerating his diet. He is having normal ileostomy output. Occasionally passes some mucus from his anus. Patient noticed some discharge from the upper aspect of his [facility] Medical History Back pain Seasonal allergic rhinitis Palpitations GERD (gastroesophageal reflux disease) Diverticulitis Nephrolithiasis Splenic cyst Surgical History Diverticulitis of sigmoid colon (12/12/23) Hx of cystoscopy H/O colonoscopy History of surgery History of left inguinal hernia repair Hx of right inguinal hernia repair Social History (System 01/01/24 @ 11:17 by Lois Berg) Household Members: Spouse Housing: House Are you a primary aged or disabled carer to a significant other at home: No Do you presently have visiting nurse or other home services: No ( has VNA currently for recent fall) Comment: counts correct Patient Tobacco Use Status: Current everyday Tobacco user Tobacco use type: Cigarette Cigarettes Per Day: 5 Years Smoked: 50 service: No Physical Exam GI Other: Abdomen is soft. Ileostomy and function. Upper aspect of incision has extruding sutures which were uneventfully removed and dressing applied. Assessment & Plan Assessment & Plan (1) History of resection of large bowel: Code(s): Z90.49 - Acquired absence of other specified parts of digestive tract Category: Surgical Plan: Current plan is to arrange for barium enema with the next 2-3 weeks time and then see him after this. If all goes well, ileostomy reversal were then be scheduled. All questions answered. (2) Postop check: Code(s): Z09 - Encounter for follow-up examination after completed treatment for conditions other than malignant neoplasm Category: Surgical Plan: See above (3) Hx of diverticulitis of colon: Code(s): Z87.19 - Personal history of other diseases of the digestive system Category: Surgical Plan: See above Plan See above Orders: Orders FL barium enema 3 Weeks Z90.49 - Acquired absence of other specified parts of digestive tract Coding Level of Care Code Global (20220) Diagnoses History of resection of large bowel Z90.49 Postop check Z09 Hx of diverticulitis of colon Z87.19
== END 2024-01-07 11:18 | disposition home or self-care (01) ==
PROVIDERS: PCP Internal Medicine; Visit Provider Surgery
DX: Z90.49 Acquired absence of other specified parts of digestive tract (principal); Z09 Encounter for follow-up examination after completed treatment for conditions other than malignant neoplasm; Z87.19 Personal history of other diseases of the digestive system
CPT/HCPCS: 99024

== ENCOUNTER → 2024-01-07 10:58 | Outpatient (BNVA) | payer OTHER, MEDICARE, SELFPAY | PROVIDERS: PCP Internal Medicine; Visit Provider Surgery | DX: Z09 Encounter for follow-up examination after completed treatment for conditions other than malignant neoplasm (principal) ==

== ENCOUNTER 2024-02-12 10:52 | Outpatient (REF) | payer OTHER, MEDICARE, SELFPAY ==
--- NOTE | ~2024-02-12 | FL_ITS ---
EXAMINATION: XR BARIUM ENEMA CLINICAL INFORMATION: Status post sigmoid resection and diverting ileostomy. Surgeon requests assessment of the colorectal anastomosis prior to ileostomy reversal. COMPARISON: None available. TECHNIQUE: Dilute Gastrografin was administered via a rectal tube. Multiple cine loops and spot images were then obtained. Pre and postevacuation films were obtained. FINDINGS: After insertion of a rectal tube, the balloon was gently inflated and Gastrografin was administered through the tube using gravity. Contrast was observed filling the residual rectum, and flows all the way to the cecum. The rectosigmoid anastomosis is widely patent with no evidence of stricture. No extravasation of contrast is seen. Rosales diverticulosis is present. FLUOROSCOPY TIME: 3 minutes 39 seconds DOSE AREA PRODUCT: [id number] uGy-m2 (microgray-meter squared) FL/FL barium enema IMPRESSION: 1. No extravasation of contrast is seen at the rectosigmoid anastomosis. No evidence of stricture. Contrast flows proximally to the cecum. 2. Pandiverticulosis This procedure was performed by Thanh Melo PA-C, and supervised by Dr. Woods
== END 2024-02-12 10:53 | disposition home or self-care (01) ==
LOC: HO.XRAY 10:52
PROVIDERS: PCP Surgery; Visit Provider Surgery
DX: Z90.49 Acquired absence of other specified parts of digestive tract (principal)
CPT/HCPCS: 74270

== ENCOUNTER → 2024-02-12 10:54 | Outpatient (BNV) | payer OTHER, MEDICARE, SELFPAY | PROVIDERS: PCP Surgery; Visit Provider Physician Assistant Surgical | DX: Z98.0 Intestinal bypass and anastomosis status (principal) | CPT/HCPCS: 74270 ==

== ENCOUNTER 2024-02-18 09:03 | Outpatient (AMB) | payer OTHER, MEDICARE, SELFPAY ==
--- NOTE | 2024-02-18 09:08 | A.OFFVIS_ITS ---
Vital Signs 02/18/24 09:09 BP 134/82 Blood Pressure Location Rt brachial Position Sitting Pulse 74 Intake Visit Reasons: follow up for barium enema on 02/11/24 Intake Note: Patient here to discuss barium enema on 02-12-24 results. Patient c/o: would like to have colostomy reversal. 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 Status post barium enema which was within normal limits. He would like to have his ostomy reversed. Patient was also hav ing some ostomy site skin irritation which will be addressed by Malcolm in the office. [facility] Medical History Back pain Seasonal allergic rhinitis Palpitations GERD (gastroesophageal reflux disease) Diverticulitis Nephrolithiasis Splenic cyst Surgical History Diverticulitis of sigmoid colon (12/12/23) Hx of cystoscopy H/O colonoscopy History of surgery History of left inguinal hernia repair Hx of right inguinal hernia repair Social History Household Members: Spouse Housing: House Are you a primary care management coordinator to a significant other at home: No Do you presently have visiting nurse or other home services: No ( has VNA currently for recent fall) Comment: counts correct Patient Tobacco Use Status: Current everyday Tobacco user Tobacco use type: Cigarette Cigarettes Per Day: 5 Years Smoked: 50 service: No Physical Exam Vital Signs: Last Vital Signs Pulse 74 02/18/24 09:09 BP 134/82 02/18/24 09:09 GI Other: Ileostomy reversal were reviewed with the patient and the risks, benefits and alternatives were discussed including but not limited to bleeding, infection, nonhealing, numbness, pain, scarring the patient wished to proceed. Arrangements were made for this idea which is convenient for him. All questions answered. Assessment & Plan Assessment & Plan (1) History of resection of large bowel: Code(s): Z90.49 - Acquired absence of other specified parts of digestive tract Category: Surgical (2) Ileostomy, has currently: Code(s): Z93.2 - Ileostomy status Category: Medical Plan See above in GI Coding Level of Care Code Est Pt Level 5 (05330) Diagnoses History of resection of large bowel Z90.49 Ileostomy, has currently Z93.2
[2024-02-18 09:09] VITALS: BP 134/82; PULSE 74
== END 2024-02-18 09:23 | disposition home or self-care (01) ==
PROVIDERS: PCP Internal Medicine; Visit Provider Surgery
DX: Z90.49 Acquired absence of other specified parts of digestive tract (principal); Z93.2 Ileostomy status
CPT/HCPCS: 99024

== ENCOUNTER → 2024-02-18 09:03 | Outpatient (BNVA) | payer OTHER, MEDICARE, SELFPAY | PROVIDERS: PCP Internal Medicine; Visit Provider Surgery ==

== ENCOUNTER 2024-03-19 08:58 | Inpatient (IN) | payer MEDICARE, SELFPAY ==
[2024-03-12 10:51] VITALS: BMI 26.0
--- NOTE | 2024-03-18 08:48 | MHC.SHP ---
Pre-Procedural Eval Section A - 24 Hr Update-Section A only Date of Service: 03/19/24 The patient is an INPATIENT: Yes Changes since office visit: No Cold of Flu in the past 2 weeks, No New Medical Problems, No Changes in Medication and No Patient answered all questions Section B - Complete if H&P > 30 days Chief Complaint: Ileostomy status,Acquired absence of digestive sys Allergies: Allergies Allergy/AdvReac Type Severity Reaction Status Date / Time No Known Allergies Allergy Verified 02/18/24 09:09 Review of Systems Sugical H&P ROS: Negative: Constitution, Cardiovascular, Respiratory, Neurological, Psychiatric, Hem-Onc, Allergic/Immunologic, Gastrointestinal, Genitourinary, Musculoskeletal, Integumentary, Endocrine and Eyes/Ears/Nose/Throat Exam Surgical H&P Exam: Normal: HEENT, Normal: Heart, Normal: Lungs, Normal: Extremities, Normal: Abdomen, Normal: Skin and Normal: Neurological Plan I have reviewed the history and physical and performed a pertinent physical examination on my patient. No changes have occurred unless specified. Time Spent With Patient Time: Total time managing care of this patient today ____ minutes.
[2024-03-19] VITALS (10 sets, daily range): BP systolic 111–148; BP diastolic 48–76; PULSE 58–81; RESP 16–18; TEMP 36.1–36.6; O2SAT 90–97
[2024-03-19] MEDS: Lactated Ringers 1,000 ML 80 ML IVCONT ×3 (07:09→23:23)
--- NOTE | 2024-03-19 07:30 | HO.ANESPROP2 ---
HPI - Anesthesia Eval Consult details Narrative: ileostomy reversal [facility] Active Problems Active Problems: All Active Problems (Updated 03/12/24 @ 09:12 by Sherita Cervantes RN) Ileostomy, has currently (Acute) History of resection of large bowel (Acute) Bladder outlet obstruction (Acute) Postop check (Acute) Acute atelectasis (Acute) Nephrolithiasis (Acute) Hx of diverticulitis of colon (Acute) Past Medical History Medical History Back pain Seasonal allergic rhinitis Palpitations GERD (gastroesophageal reflux disease) Diverticulitis Nephrolithiasis Splenic cyst Family History Family history of problems with anesthesia: No Surgical History Surgical History Hx of cystoscopy H/O colonoscopy History of surgery History of left inguinal hernia repair Hx of right inguinal hernia repair Diverticulitis of sigmoid colon (12/12/23) History of Problems with Anesthesia: No Social History Social History Household Members: Spouse Housing: House Are you a primary patient care secretary to a significant other at home: No Do you presently have visiting nurse or other home services: No Comment: counts correct Patient Tobacco Use Status: Current everyday Tobacco user Tobacco use type: Cigarette Cigarettes Per Day: 5 Years Smoked: 50 Use of substances other than those prescribed or required for medical reasons: No Have you been hit, kicked, punched, or otherwise hurt by someone within the past year? If so, by whom?: No Are you DNR?: No Advance Directives Information Provided: Yes (as above noted) Advance Directives on File: No Recently lost weight without trying: No Eating poorly because of decreased appetite: No Nutrition Risks: No Nutritional Risk Poor oral hygiene: No (cracked/missing teeth) service: No Meds Allergies Allergy/AdvReac Type Severity Reaction Status Date / Time No Known Allergies Allergy Verified 03/19/24 06:23 Active Medications: Current Medications Lactated Ringer's (Lr) 1,000 mls @ 80 mls/hr IVCONT .[id number] YAKELIN Last Admin: 03/19/24 07:09 Dose: 80 mls/hr Home Medications ?Medication ?Instructions ?Recorded ?Confirmed ?Last Taken ?Type pantoprazole 40 mg tablet,delayed 40 mg PO DAILY@0630 10/16/23 03/19/24 03/19/24 History release azelastine 137 mcg (0.1 %) nasal 2 spray intranasal BID 12/04/23 03/12/24 12/11/23 16:00 History spray Exam Height,Weight and Vital Signs: Height 6 ft 1 in Weight 89.358 kg Last Vital Signs Temp 97.0 F 03/19/24 06:48 Pulse 66 03/19/24 06:48 Resp 16 03/19/24 06:48 BP 137/76 03/19/24 06:48 Pulse Ox 95 03/19/24 06:48 O2 Del Method Room Air 03/19/24 06:48 Airway TM Dist: >3cm Neck ROM: Full Heart: rrrcta Assessment and Plan Assessment Anesthesia Assessment: Anesthesia Plan Discussed Final Anesthetic Review Family History of Problems with Anesthesia: No History of Problems with Anesthesia: No NPO: Yes ASA Class: III Final Preanesthetic Review: No Changes in Pt Med Stat, Meds/Allgs Chart Reviewed, Consent Obtained/Reviewed and Anes Risks/Benef Reviewed Patient Risk: Intermediate Procedure Risk: Intermediate Anesthetic Plan Anesthetic Plan: GA Disposition: Standard PACU
--- NOTE | 2024-03-19 08:58 | W.PM.OPN ---
Operative Note Operative Note Date of Service: 03/19/24 Narrative: Preoperative diagnosis: [] Loop ileostomy, stitch granuloma of midline incision Postop diagnosis: [] The same Procedure [] 1. Excision of stitch granuloma upper midline incision 2. Right lower quadrant ileostomy reversal Surgeon: [] Paras Reception Interviewer: [] Melissa Type of Anesthesia: [] General Indication for surgery: [] Patient was status post loop ileostomy status post sigmoid resection were diverticulitis. Patient presents for ileostomy reversal. Patient also has a stitch granuloma of the upper aspect of the lower midline incision from his prior surgery. Suture from his fascia closure was responsible for the skin granuloma and this along with a trach were uneventfully excised. Patient had uneventful ileostomy reversal. Findings: [] Patient brought to the operating room, placed on operative table in supine position, after an adequate level of general anesthesia was induced, the patient's abdomen was prepped and draped after the ileostomy was closed using running 2-0 silk suture. Commencing with the upper midline granulating track, this was dissected down to the fascia where the midline suture/knot was responsible for the stitch granuloma and all were uneventfully excised. Wound was irrigated, secured hemostasis, and closed using interrupted inverted dermal 3-0 Vicryl sutures. Next the ileostomy was approached with a transverse by elliptical incision and carried down through skin, subcutaneous tissue, down to fascia. Circumferentially dissection down into the abdominal cavity was performed with mobilization completely of the loop ileostomy. At the desired location, CHERRIE staplers were used to transected loop of the ostomy. Mesentery was sequentially taken down using clamps, cutting, and tied using 3-0 Vicryl ties. Next a functional end-to-end anastomosis using CHERRIE 60 and TA 60 staplers was performed. Succus entericus traversed the anastomosis with no leak. Crotch of the anastomosis was buttressed using interrupted seromuscular 2-0 silk sutures. Mesenteric defect was reapproximated using interrupted 3-0 Vicryl sutures. This was returned into the abdominal cavity. Wound was irrigated and secured hemostasis. Was closed in the following manner; posterior fascia and peritoneum were closed using running 0 Vicryl suture. Anterior fascia was closed using 1. Maxon running suture. Skin was closed using widely spaced interrupted inverted dermal 3-0 Vicryl sutures followed by skin ángel. All wounds were infiltrated 0.5% Marcaine at completion. Steri-Strips were placed across the stitch granuloma site. Sterile dressings were applied. Sponge, needle, and instrument counts reported correct. Patient tolerated the procedure well and emerged from anesthesia stable condition. EBL minimal
--- NOTE | 2024-03-19 09:06 | PHA.MEDREC ---
Pharmacy Consult ? Medication Reconciliation Pharmacy has completed the medication reconciliation. Reviewed med rec done by nursing
[2024-03-19] MEDS: HYDROmorphone HCl 0.5 MG/0.5 ML SYRINGE 0.25 MG IVPUSH ×2 (09:10→09:15)
[2024-03-19] MEDS: oxyCODONE HCl Immed Release 5 MG TABLET PO ×2 (09:39→13:40)
[2024-03-19] MEDS: Acetaminophen 1,000 MG/100 ML PIGGYBACK 400 MG IV ×3 (10:17→20:02)
[2024-03-19] MEDS: Morphine Sulfate 4 MG/ML CARTRIDGE IVPUSH ×2 (10:36→18:07)
[2024-03-19 10:48] LABS: Creatinine Clr Calc Pharmacy 88.5; Estimated Glomerular Filt Rate > 60
[2024-03-19] MEDS: Tamsulosin HCL 0.4 MG CAPSULE PO (20:01)
[2024-03-19] MEDS: Calcium Carbonate 750 MG TAB.CHEW PO (23:22)
[2024-03-20 02:30] VITALS: BP 120/64; PULSE 69; RESP 17; TEMP 36.1; O2SAT 95
[2024-03-20] MEDS: Acetaminophen 1,000 MG/100 ML PIGGYBACK 400 MG IV ×4 (03:32→21:33)
[2024-03-20] MEDS: Omeprazole 40 MG CAPSULE.DR PO (06:04)
--- NOTE | 2024-03-20 07:18 | HO.STUDPN_ITS ---
Subjective Subjective Date of Service: 03/20/24 <[facility]: 03/20/24 07:28> 03/20/24 <Felisa Torres PA-C Last Filed: 03/20/24 07:47> Interval History: Overall feels well, reports incisional pain with movement but comfortable. Tolerating clear liquids. Denies flatus. OOb to bathroom. Feels hungry. < Felisa Torres PA-C Last Filed: 03/20/24 07:47> Constitutional Constitutional: Reports no additional constitutional complaints <[facility] Filed: 03/20/24 07:28> Eyes Eyes: Reports no additional eye complaints <[facility] Filed: 03/20/24 07:28> ENT Ears, Nose, Mouth, and Throat: Reports system reviewed and no additional complaints, except as documented <[facility] Filed: 03/20/24 07:28> Cardiovascular Cardiovascular: Reports no additional cardiovascular complaints <[facility] Filed: 03/20/24 07:28> Respiratory Respiratory: Reports no additional respiratory complaints <[facility] Filed: 03/20/24 07:28> Gastrointestinal Gastrointestinal: Reports no additional gastrointestinal complaints and Reports abdominal pain (abdominal tenderness over incisions) <[facility] Filed: 03/20/24 07:28> no nausea, no vomiting, no BM, <[facility] Filed: 03/20/24 07:28> Genitourinary Genitourinary: Reports no additional male genitourinary complaints <[facility] Filed: 03/20/24 07:28> Musculoskeletal Musculoskeletal: Reports no additional musculoskeletal complaints <[facility] Filed: 03/20/24 07:28> Integumentary/Breasts Skin/Breast: Reports no additional skin complaints <[facility] Filed: 03/20/24 07:28> Neurologic Neurologic: Reports system reviewed and no additional complaints, except as documented <[facility] Filed: 03/20/24 07:28> Psychiatric Psychiatric: Reports no additional psychiatric complaints <[facility] Filed: 03/20/24 07:28> Endocrine Endocrine: Reports no additional endocrine complaints <[facility] Filed: 03/20/24 07:28> Hematologic/Lymphatic Hematologic/Lymphatic: Reports no additional hematologic/lymphatic complaints <[facility] Last Filed: 03/20/24 07:28> Allergic/Immunologic Allergic/Immunologic: Reports no additional allergic/immunologic complaints <[facility] Filed: 03/20/24 07:28> Physical Exam 2 Vital Signs: Vital Signs: Last Vital Signs Temp 96.9 F 03/20/24 02:30 Pulse 69 03/20/24 02:30 Resp 17 03/20/24 02:30 BP 120/64 03/20/24 02:30 Pulse Ox 95 03/20/24 02:30 O2 Del Method Room Air 03/20/24 02:30 O2 Flow Rate 2 03/19/24 09:56 BMI result Body Mass Index 26.0 <[facility] Filed: 03/20/24 07:28> Remains afebrile, BP 114/58 - 125/75, HR 58-72 <[facility] Last Filed: 03/20/24 07:28> Const: General: cooperative, comfortable, alert, awake and Physically active <[facility] Filed: 03/20/24 07:28> Orientation/consciousness: patient oriented x3 <[facility] Filed: 03/20/24 07:28> HEENT: Head: Yes normocephalic and Yes atraumatic <[facility] Filed: 03/20/24 07:28> Ears: hearing grossly normal bilaterally and external ears normal <[facility] Filed: 03/20/24 07:28> General nose exam: Normal external nose present <[facility] Filed: 03/20/24 07:28> Eyes: General: appearance normal, both eyes and all related structures < [facility] Last Filed: 03/20/24 07:28> Conjunctivae: conjunctivae normal <[facility] Filed: 03/20/24 07:28> Sclerae: sclerae normal <[facility] Filed: 03/20/24 07:28> EOM: EOMs intact bilaterally <[facility] Filed: 03/20/24 07:28> Neck: Neck: Yes normal visual inspection and Yes full ROM <[facility] Filed: 03/20/24 07:28> Resp: Effort & Inspection: normal respiratory effort <[facility] Filed: 03/20/24 07:28> Auscultation: clear to auscultation bilaterally <[facility] Filed: 03/20/24 07:28> Cardio: Jugular venous distension: no JVD <[facility] Filed: 03/20/24 07:28> Rate: regular rate <[facility] Filed: 03/20/24 07:28> Rhythm: regular rhythm <[facility] Filed: 03/20/24 07:28> Heart sounds: S1 normal heart sound present and S2 normal heart sound present <[facility] Filed: 03/20/24 07:28> Peripheral pulses: Peripheral pulses 2+ throughout <[facility] Filed: 03/20/24 07:28> GI: Other: midine steri strips intact ileostomy reversal site clean appearing, woud ángel advanced, some sanguineous drainage on dressing <Felisa Torres PA-C - Last Filed: 03/20/24 07:47> Inspection: Yes normal to inspection and Yes incision (dressing c/d/i) < [facility] Last Filed: 03/20/24 07:28> Palpation (GI): Soft to palpation and Tenderness to palpation present (GI) (to incisions) <[facility] Filed: 03/20/24 07:28> Auscultation: normoactive bowel sounds <[facility] Filed: 03/20/24 07:28> Skin: General skin exam: no rashes or lesions noted <[facility] Filed: 03/20/24 07:28> Neuro: General: patient oriented x3 and moves all extremities <[facility] Last Filed: 03/20/24 07:28> Extrem: General: Yes normal to inspection, Yes capillary refill normal and Yes no pedal edema <Brook Patel - Last Filed: 03/20/24 07:28> Objective Data Active Medications Azelastine HCl (Azelastine Hcl Nasal 137 Mcg/[place] 30 Ml) 2 spray NOSTRIL-B BID [facility] Last Admin: 03/19/24 20:03 Dose: Not Given Documented By: JEREMY Non-Admin Reason: Patient Refused Calcium Carbonate (Calcium Carbonate 750 Mg Tab.Chew) 750 mg PO Q4H PRN PRN Reason: Heartburn Last Admin: 03/19/24 23:22 Dose: 750 mg Documented By: ANRCISO Enoxaparin Sodium (Enoxaparin Sodium 40 Mg/0.4 Ml Syringe) 40 mg SUBCUT Q24H [facility] Lactated Ringer's (Lr) 1,000 mls @ 80 mls/hr IVCONT .[id number] [facility] Last Admin: 03/20/24 07:04 Dose: Not Given Documented By: JUDAH Non-Admin Reason: IV Running Acetaminophen (Ofirmev) 1,000 mg in 100 mls @ 400 mls/hr IV Q6H [facility] Last Infusion: 03/20/24 03:55 Dose: Infused Documented By: NARCISO Magnesium Hydroxide (Milk Of Magnesia 30 Ml Oral.Susp) 30 ml PO DAILY PRN PRN Reason: Constipation Melatonin (Melatonin 3 Mg Tablet) 6 mg PO BEDTIME PRN PRN Reason: Insomnia Morphine Sulfate (Morphine Sulfate 4 Mg/Ml Cartridge) 4 mg IVPUSH Q4H PRN; Protocol PRN Reason: Pain, Severe (Pain Scale 7-10) Last Admin: 03/19/24 18:07 Dose: 4 mg Documented By: JUDAH Omeprazole (Omeprazole 40 Mg Capsule.Dr) 40 mg PO DAILY@0630 [facility] Last Admin: 03/20/24 06:04 Dose: 40 mg Documented By: NARCISO Ondansetron HCl (Ondansetron Hcl 4 Mg/2 Ml Vial) 4 mg IVPUSH Q8H PRN PRN Reason: Nausea and Vomiting Oxycodone HCl (Oxycodone Hcl Immed Release 5 Mg Tablet) 5 mg PO Q4H PRN PRN Reason: Pain, Moderate(Pain Scale 4-6) Last Admin: 03/19/24 13:40 Dose: 5 mg Sodium Chloride (0.9 % Sodium Chloride Flush 3 Ml Syringe) 3 ml IVFLUSH QSHIFT [facility] Last Admin: 03/20/24 07:04 Dose: Not Given Documented By: JUDAH Non-Admin Reason: IV Running Tamsulosin HCl (Tamsulosin Hcl 0.4 Mg Capsule) 0.4 mg PO BEDTIME [facility] Last Admin: 03/19/24 20:01 Dose: 0.4 mg Documented By: JEREMY <Brookepi Watts - Last Filed: 03/20/24 07:28> Labs CBC & Chem 7: 03/20/24 05:28 <Brook Patel Last Filed: 03/20/24 07:28> Labs: Laboratory Results - last 24 hr 03/19/24 10:16 Hold Purple Top SEE NOTE Estim Creat Clear Calc 88.5 Estimated GFR > 60 <Brook Patel Last Filed: 03/20/24 07:28> Assessment and Plan (1) Status post reversal of ileostomy: Status: Acute <Brookepi Patel [facility] Filed: 03/20/24 07:28> Assessment and Plan: D1 s/p ileostomy reversal pain well controlled, no nausea/vomiting with clear liquid diet no BM or flatulence ambulating for bathroom w/o difficulty or dizziness <Brook Amanda [facility] Filed: 03/20/24 07:28> D1 s/p ileostomy reversal pain well controlled, no nausea/vomiting with clear liquid diet no BM or flatulence ambulating for bathroom w/o difficulty or dizziness Agree with above assessment and plan by Brook Patel MS-3. Patient POD #1 s/p loop ileostomy reversal, Excision of stitch granuloma upper midline incision. He is doing well post op. VSS. Abd exam benign with appropriate post op tenderness, ileostomy reversal site clean appearing, wound ángel advanced. Will advance to solid diet. Cont OOB/ambulation. Dc IVF. Home when tolerating solid diet, evidence of GI function. <Felisa Torres PA-C - Last Filed: 03/20/24 07:47> Quality Stroke Does the patient have a stroke diagnosis?: No <Felisa Torres PA-C - Last Filed: 03/20/24 07:47> VTE Prior VTE?: No <Felisa Torres PA-C - Last Filed: 03/20/24 07:47> VTE Risk Level:: Surgical - high <Brook Patel - Last Filed: 03/20/24 07:28> VTE Device Contraindication: N/A - Device Ordered <Brook Patel - Last Filed: 03/20/24 07:28> VTE Drug Contraindication: N/A - Med Ordered <Brook Patel - Last Filed: 03/20/24 07:28>
--- NOTE | 2024-03-20 07:18 | HO.STUDENTPN ---
Subjective Subjective Date of Service: 03/20/24 [facility] 03/20/24 07:28> 03/20/24 <Felisa Torres PA-C Last Filed: 03/20/24 07:47> Interval History: Overall feels well, reports incisional pain with movement but comfortable. Tolerating clear liquids. Denies flatus. OOb to bathroom. Feels hungry. <Felisa Torres PA-C Last Filed: 03/20/24 07:47> Constitutional Constitutional: Reports no additional constitutional complaints <[facility] Filed: 03/20/24 07:28> Eyes Eyes: Reports no additional eye complaints <[facility] Filed: 03/20/24 07:28> ENT Ears, Nose, Mouth, and Throat: Reports system reviewed and no additional complaints, except as documented <[facility] Filed: 03/20/24 07:28> Cardiovascular Cardiovascular: Reports no additional cardiovascular complaints <[facility] Filed: 03/20/24 07:28> Respiratory Respiratory: Reports no additional respiratory complaints <[facility] Filed: 03/20/24 07:28> Gastrointestinal Gastrointestinal: Reports no additional gastrointestinal complaints and Reports abdominal pain (abdominal tenderness over incisions) <[facility] Filed: 03/20/24 07:28> no nausea, no vomiting, no BM, <[facility] Filed: 03/20/24 07:28> Genitourinary Genitourinary: Reports no additional male genitourinary complaints <[facility] Filed: 03/20/24 07:28> Musculoskeletal Musculoskeletal: Reports no additional musculoskeletal complaints <[facility] Filed: 03/20/24 07:28> Integumentary/Breasts Skin/Breast: Reports no additional skin complaints <[facility] Filed: 03/20/24 07:28> Neurologic Neurologic: Reports system reviewed and no additional complaints, except as documented <[facility] Filed: 03/20/24 07:28> Psychiatric Psychiatric: Reports no additional psychiatric complaints <[facility] Filed: 03/20/24 07:28> Endocrine Endocrine: Reports no additional endocrine complaints <[facility] Last Filed: 03/20/24 07:28> Hematologic/Lymphatic Hematologic/Lymphatic: Reports no additional hematologic/lymphatic complaints <[facility] Last Filed: 03/20/24 07:28> Allergic/Immunologic Allergic/Immunologic: Reports no additional allergic/immunologic complaints <[facility] Last Filed: 03/20/24 07:28> Physical Exam Vital Signs: Vital Signs: Last Vital Signs Temp 96.9 F 03/20/24 02:30 Pulse 69 03/20/24 02:30 Resp 17 03/20/24 02:30 BP 120/64 03/20/24 02:30 Pulse Ox 95 03/20/24 02:30 O2 Del Method Room Air 03/20/24 02:30 O2 Flow Rate 2 03/19/24 09:56 BMI result Body Mass Index 26.0 <[facility] Last Filed: 03/20/24 07:28> Remains afebrile, BP 114/58 - 125/75, HR 58-72 <[facility] Filed: 03/20/24 07:28> Const: General: cooperative, comfortable, alert, awake and Physically active <[facility] Filed: 03/20/24 07:28> Orientation/consciousness: patient oriented x3 <[facility] Filed: 03/20/24 07:28> HEENT: Head: Yes normocephalic and Yes atraumatic <[facility] Filed: 03/20/24 07:28> Ears: hearing grossly normal bilaterally and external ears normal <[facility] Filed: 03/20/24 07:28> General nose exam: Normal external nose present <[facility] Filed: 03/20/24 07:28> Eyes: General: appearance normal, both eyes and all related structures <[facility] Last Filed: 03/20/24 07:28> Conjunctivae: conjunctivae normal <[facility] Filed: 03/20/24 07:28> Sclerae: sclerae normal <[facility] Filed: 03/20/24 07:28> EOM: EOMs intact bilaterally <[facility] Filed: 03/20/24 07:28> Neck: Neck: Yes normal visual inspection and Yes full ROM <[facility] Filed: 03/20/24 07:28> Resp: Effort & Inspection: normal respiratory effort <[facility] Filed: 03/20/24 07:28> Auscultation: clear to auscultation bilaterally <[facility] Filed: 03/20/24 07:28> Cardio: Jugular venous distension: no JVD <[facility] Filed: 03/20/24 07:28> Rate: regular rate <[facility] Filed: 03/20/24 07:28> Rhythm: regular rhythm <[facility] Filed: 03/20/24 07:28> Heart sounds: S1 normal heart sound present and S2 normal heart sound present <[facility] Filed: 03/20/24 07:28> Peripheral pulses: Peripheral pulses 2+ throughout <[facility] Filed: 03/20/24 07:28> GI: Other: midine steri strips intact ileostomy reversal site clean appearing, woud ángel advanced, some sanguineous drainage on dressing <Felisa Torres PA-C - Last Filed: 03/20/24 07:47> Inspection: Yes normal to inspection and Yes incision (dressing c/d/i) <[facility] Filed: 03/20/24 07:28> Palpation (GI): Soft to palpation and Tenderness to palpation present (GI) (to incisions) <[facility] Filed: 03/20/24 07:28> Auscultation: normoactive bowel sounds <[facility] Filed: 03/20/24 07:28> Skin: General skin exam: no rashes or lesions noted <[facility] Filed: 03/20/24 07:28> Neuro: General: patient oriented x3 and moves all extremities <[facility] Last Filed: 03/20/24 07:28> Extrem: General: Yes normal to inspection, Yes capillary refill normal and Yes no pedal edema <Brook Patel - Last Filed: 03/20/24 07:28> Objective Data Active Medications Azelastine HCl (Azelastine Hcl Nasal 137 Mcg/[place] 30 Ml) 2 spray NOSTRIL-B BID [facility] Last Admin: 03/19/24 20:03 Dose: Not Given Documented By: JEREMY Non-Admin Reason: Patient Refused Calcium Carbonate (Calcium Carbonate 750 Mg Tab.Chew) 750 mg PO Q4H PRN PRN Reason: Heartburn Last Admin: 03/19/24 23:22 Dose: 750 mg Documented By: NARCISO Enoxaparin Sodium (Enoxaparin Sodium 40 Mg/0.4 Ml Syringe) 40 mg SUBCUT Q24H [facility] Lactated Ringer's (Lr) 1,000 mls @ 80 mls/hr IVCONT .[id number] [facility] Last Admin: 03/20/24 07:04 Dose: Not Given Documented By: JUDAH Non-Admin Reason: IV Running Acetaminophen (Ofirmev) 1,000 mg in 100 mls @ 400 mls/hr IV Q6H [facility] Last Infusion: 03/20/24 03:55 Dose: Infused Documented By: NARCISO Magnesium Hydroxide (Milk Of Magnesia 30 Ml Oral.Susp) 30 ml PO DAILY PRN PRN Reason: Constipation Melatonin (Melatonin 3 Mg Tablet) 6 mg PO BEDTIME PRN PRN Reason: Insomnia Morphine Sulfate (Morphine Sulfate 4 Mg/Ml Cartridge) 4 mg IVPUSH Q4H PRN; Protocol PRN Reason: Pain, Severe (Pain Scale 7-10) Last Admin: 03/19/24 18:07 Dose: 4 mg Documented By: JUDAH Omeprazole (Omeprazole 40 Mg Capsule.Dr) 40 mg PO DAILY@0630 [facility] Last Admin: 03/20/24 06:04 Dose: 40 mg Documented By: NARCISO Ondansetron HCl (Ondansetron Hcl 4 Mg/2 Ml Vial) 4 mg IVPUSH Q8H PRN PRN Reason: Nausea and Vomiting Oxycodone HCl (Oxycodone Hcl Immed Release 5 Mg Tablet) 5 mg PO Q4H PRN PRN Reason: Pain, Moderate(Pain Scale 4-6) Last Admin: 03/19/24 13:40 Dose: 5 mg Sodium Chloride (0.9 % Sodium Chloride Flush 3 Ml Syringe) 3 ml IVFLUSH QSHIFT [facility] Last Admin: 03/20/24 07:04 Dose: Not Given Documented By: JUDAH Non-Admin Reason: IV Running Tamsulosin HCl (Tamsulosin Hcl 0.4 Mg Capsule) 0.4 mg PO BEDTIME [facility] Last Admin: 03/19/24 20:01 Dose: 0.4 mg Documented By: JEREMY <Brookepi Watts - Last Filed: 03/20/24 07:28> Labs CBC & Chem 7: 03/20/24 05:28 <Brook Patel Last Filed: 03/20/24 07:28> Labs: Laboratory Results - last 24 hr 03/19/24 10:16 Hold Purple Top SEE NOTE Estim Creat Clear Calc 88.5 Estimated GFR > 60 <Brook Amanda Last Filed: 03/20/24 07:28> Assessment and Plan (1) Status post reversal of ileostomy: Status: Acute <Brookepi Patel [facility] Filed: 03/20/24 07:28> Assessment and Plan: D1 s/p ileostomy reversal pain well controlled, no nausea/vomiting with clear liquid diet no BM or flatulence ambulating for bathroom w/o difficulty or dizziness <Brook Amanad [facility] Filed: 03/20/24 07:28> D1 s/p ileostomy reversal pain well controlled, no nausea/vomiting with clear liquid diet no BM or flatulence ambulating for bathroom w/o difficulty or dizziness Agree with above assessment and plan by Brook Patel MS-3. Patient POD #1 s/p loop ileostomy reversal, Excision of stitch granuloma upper midline incision. He is doing well post op. VSS. Abd exam benign with appropriate post op tenderness, ileostomy reversal site clean appearing, wound ángel advanced. Will advance to solid diet. Cont OOB/ambulation. Dc IVF. Home when tolerating solid diet, evidence of GI function. <Felisa Torres PA-C - Last Filed: 03/20/24 07:47> Quality Stroke Does the patient have a stroke diagnosis?: No <Felisa Torres PA-C - Last Filed: 03/20/24 07:47> VTE Prior VTE?: No <Felisa Torres PA-C - Last Filed: 03/20/24 07:47> VTE Risk Level:: Surgical - high <Brook Patel - Last Filed: 03/20/24 07:28> VTE Device Contraindication: N/A - Device Ordered <Brook Patel - Last Filed: 03/20/24 07:28> VTE Drug Contraindication: N/A - Med Ordered <Brook Patel - Last Filed: 03/20/24 07:28>
[2024-03-20 07:54] VITALS: BP 134/63; PULSE 58; RESP 18; TEMP 36.6; O2SAT 95
[2024-03-20] MEDS: Enoxaparin Sodium 40 MG/0.4 ML SYRINGE SUBCUT (08:16)
[2024-03-20] MEDS: Lactated Ringers 1,000 ML 80 ML IVCONT (08:16)
--- NOTE | 2024-03-20 08:33 | HO.POSTANES ---
Post Anesthesia Evaluation Post Anesthesia Evaluation Date of Service: 03/20/24 Vital Signs: Vital Signs Temp Pulse Resp BP Pulse Ox O2 Del Method 03/20/24 07:54 97.9 F 58 18 134/63 95 Room Air 03/20/24 02:30 96.9 F 69 17 120/64 95 Room Air Anesthesia: General Endotracheal-GETA Mental Status: Awake Pain Control: Satisfactory Nausea/Vomiting: None Hydration: Adequate Anesthesia-Related Issues: No Anes. Related Issues
[2024-03-20 09:32] LABS: Alanine Aminotransferase 8 U/L (0-40); Albumin Level 3.5 g/dL (3.5-5.0); Alkaline Phosphatase 90 U/L (39-117); Anion Gap 10 (12-20); Aspartate Amino Transferase 13 U/L (5-37); Bilirubin Total 0.9 mg/dL (0.0-1.0); Blood Urea Nitrogen 9 mg/dL (9-16); Calcium 9.1 mg/dL (8.4-10.2); Carbon Dioxide 27 mmol/L (22-29); Chloride 105 mmol/L (96-108); Creatinine Clr Calc Pharmacy 95.3; Estimated Glomerular Filt Rate > 60; Glucose Random 97 mg/dL (60-115); Potassium 3.8 mmol/L (3.3-5.1); Sodium 138 mmol/L (135-145); Total Protein 6.6 g/dL (6.5-8.0)
--- NOTE | 2024-03-20 12:38 | MHC.CM.PN ---
IMM DELIVERED. PATIENT LIVES IN A HOME W/ [facility]. FUNCTIONALLY INDEPENDENT. PCP: GIBSON GILES REPORTS HE HAS AN HCP LISTING [facility]. COPY REQUESTED. HE WILL BRING TO F/U W/ SURGEON'S OFFICE. USED [facility] IN THE PAST. DP: DO NOT ANTICIPATE THE NEED FOR SERVICES, AND PATIENT DOES NOT WISH TO HAVE [facility]. HOME SELF CARE IS THE GOAL. TO TRANSPORT. CM WILL CONTINUE TO FOLLOW.
[2024-03-20 15:03] VITALS: BP 144/72; PULSE 64; RESP 20; TEMP 36.5; O2SAT 94
[2024-03-20 19:09] VITALS: BP 146/69; PULSE 65; RESP 20; TEMP 36.5; O2SAT 93
[2024-03-20] MEDS: Tamsulosin HCL 0.4 MG CAPSULE PO (21:34)
[2024-03-20] MEDS: 0.9 % Sodium Chloride Flush 3 ML SYRINGE IVFLUSH (21:35)
[2024-03-21 03:44] VITALS: BP 140/83; PULSE 67; RESP 18; TEMP 37.2; O2SAT 94
[2024-03-21] MEDS: Azelastine HCl Nasal 137 MCG/Spray 30 ML 2 SPRAY NOSTRIL-B (05:57)
[2024-03-21] MEDS: Omeprazole 40 MG CAPSULE.DR PO (05:57)
[2024-03-21] MEDS: Enoxaparin Sodium 40 MG/0.4 ML SYRINGE SUBCUT (07:40)
[2024-03-21] MEDS: Acetaminophen 1,000 MG/100 ML PIGGYBACK 400 MG IV (07:41)
[2024-03-21] MEDS: 0.9 % Sodium Chloride Flush 3 ML SYRINGE IVFLUSH (07:41)
[2024-03-21 07:49] VITALS: BP 148/77; PULSE 60; RESP 19; TEMP 36.7; O2SAT 92
--- NOTE | 2024-03-21 14:23 | PM.PNGS ---
Subjective Subjective Date of Service: 03/21/24 Interval history: Patient is doing well. Wished to be discharged home. He is tolerating his diet. He is having small bowel movements and flatus. Minimal incisional discomfort. Physical Exam Vital Signs: Vital Signs: Last Vital Signs Temp 98.0 F 03/21/24 07:49 Pulse 60 03/21/24 07:49 Resp 19 03/21/24 07:49 BP 148/77 H 03/21/24 07:49 Pulse Ox 92 03/21/24 07:49 O2 Del Method Room Air 03/21/24 07:49 O2 Flow Rate 2 03/19/24 09:56 BMI result Body Mass Index 26.0 GI: Other: Abdomen is soft. Ostomy site clean dry intact. Raymond removed and dressing applied. Suture granuloma site clean dry and intact Objective Data Active Medications Azelastine HCl (Azelastine Hcl Nasal 137 Mcg/Prospect 30 Ml) 2 spray NOSTRIL-B BID [facility] Last Admin: 03/21/24 05:57 Dose: 2 spray Documented By: NARCISO Calcium Carbonate (Calcium Carbonate 750 Mg Tab.Chew) 750 mg PO Q4H PRN PRN Reason: Heartburn Last Admin: 03/19/24 23:22 Dose: 750 mg Documented By: NARCISO Enoxaparin Sodium (Enoxaparin Sodium 40 Mg/0.4 Ml Syringe) 40 mg SUBCUT Q24H [facility] Last Admin: 03/21/24 07:40 Dose: 40 mg Documented By: MARIA Acetaminophen (Ofirmev) 1,000 mg in 100 mls @ 400 mls/hr IV Q6H [facility] Last Infusion: 03/21/24 08:25 Dose: Infused Documented By: MARIA Magnesium Hydroxide (Milk Of Magnesia 30 Ml Oral.Susp) 30 ml PO DAILY PRN PRN Reason: Constipation Melatonin (Melatonin 3 Mg Tablet) 6 mg PO BEDTIME PRN PRN Reason: Insomnia Morphine Sulfate (Morphine Sulfate 4 Mg/Ml Cartridge) 4 mg IVPUSH Q4H PRN; Protocol PRN Reason: Pain, Severe (Pain Scale 7-10) Last Admin: 03/19/24 18:07 Dose: 4 mg Documented By: JUDAH Omeprazole (Omeprazole 40 Mg Capsule.Dr) 40 mg PO DAILY@0630 [facility] Last Admin: 03/21/24 05:57 Dose: 40 mg Documented By: NRACISO Ondansetron HCl (Ondansetron Hcl 4 Mg/2 Ml Vial) 4 mg IVPUSH Q8H PRN PRN Reason: Nausea and Vomiting Oxycodone HCl (Oxycodone Hcl Immed Release 5 Mg Tablet) 5 mg PO Q4H PRN PRN Reason: Pain, Moderate(Pain Scale 4-6) Last Admin: 03/19/24 13:40 Dose: 5 mg Sodium Chloride (0.9 % Sodium Chloride Flush 3 Ml Syringe) 3 ml IVFLUSH QSHIFT [facility] Last Admin: 03/21/24 07:41 Dose: 3 ml Documented By: MARIA Tamsulosin HCl (Tamsulosin Hcl 0.4 Mg Capsule) 0.4 mg PO BEDTIME [facility] Last Admin: 03/20/24 21:34 Dose: 0.4 mg Documented By: NARCISO Labs 03/20/24 08:58 Procedures Date of Service Date of Service: 03/21/24 Progress Note: A&P Assessment and plan (1) Status post reversal of ileostomy: Status: Acute Plan Current plan is discharge patient home. Discharge instructions completed. Time Spent With Patient Time: Total time managing care of this patient today ____ minutes. Quality Stroke Does the patient have a stroke diagnosis?: No VTE Prior VTE?: No VTE Risk Level:: Surgical - high VTE Device Contraindication: N/A - Device Ordered VTE Drug Contraindication: N/A - Med Ordered
--- NOTE | 2024-03-21 14:59 | PC.NURSE ---
Patient discharged by SILVERIO Ramirez
--- NOTE | 2024-03-21 15:00 | PM.DS ---
DS: Providers Provider Date of Service: 03/21/24 Date of admission: 03/19/24 08:58 Date of discharge: 03/21/24 Primary care physician: Lindsay Kelley MD Attending physician on admission: Alfred Crain Attending physician on discharge: Alfred Crain DS: Diagnosis Discharge Diagnosis (1) Status post reversal of ileostomy: Status: Acute DS: Summary Hospital Course Hospital Course: HPI AT ADMISSION: Patient was status post loop ileostomy status post sigmoid resection were diverticulitis. Patient presents for ileostomy reversal. Patient also has a stitch granuloma of the upper aspect of the lower midline incision from his prior surgery which will be excised. HOSPITAL COURSE: On 03/19/24, excision of stitch granuloma upper midline incision, Right lower quadrant ileostomy reversal was performed by Dr. Crain without immediate complications. The patient tolerated the procedure well and was admitted for observation post operatively. He had an uncomplicated recovery course. He remained inpatient two nights for pain control. On POD #1 he was tolerating a clear liquid diet and began to pass flatus. He was advanced to solid diet. On POD #2, he felt well and was tolerating a solid diet without nausea or vomiting. He had good GI function. His abdomen was benign with clean incisions. His wound ángel were removed from his ostomy reversal site. He felt ready for discharge. He was discharged to home on 03/21/24 in stable condition. He is to follow up in the office in 1 week. Status at Discharge Functional status at discharge: independent ambulation Overall status at discharge: patient is progressing back to baseline Time Attestation Discharge Coordination Time (in mins): 30 Quality: Safe Use of Opioids Does Pt have an Active Cancer Diagnosis on the Problem List?: No Quality: Stroke Does the patient have a stroke diagnosis?: No Physical Exam Vital Signs: Vital Signs: Last Vital Signs Temp 98.0 F 03/21/24 07:49 Pulse 60 03/21/24 07:49 Resp 19 03/21/24 07:49 BP 148/77 H 03/21/24 07:49 Pulse Ox 92 03/21/24 07:49 O2 Del Method Room Air 03/21/24 07:49 O2 Flow Rate 2 03/19/24 09:56 BMI result Body Mass Index 26.0 Const: General: comfortable, no acute distress and alert Resp: Effort & Inspection: normal respiratory effort GI: Inspection: Yes incision (clean, wound ángel removed from old ostomy site, steris intact midline) Palpation (GI): Soft to palpation, Tenderness to palpation present (GI) (mild incisional) and no guarding Skin: General skin exam: no rashes or lesions noted DS: Data Data Completed and Pending Completed studies during hospitalization [Text1]: 03/19/24 08:25 Surgical [PTH] Routine Ileostomy, reversal: Inflamed enterocutaneous tissue Procedures Bypass Ileum to Cutaneous, Open Approach (12/12/23) Drainage of Left Ureter with Drainage Device, Via Natural or Artificial Opening Endoscopic (12/12/23) Excision of Sigmoid Colon, Open Approach (12/12/23) Release Peritoneum, Open Approach (12/12/23) Discharge Plan Discharge Anticipated Discharge Date/Time: 03/21/24 14:24 Patient Disposition: Home, Self-Care Discharge Diagnosis: Ileostomy, stitch granuloma Referrals: Alfred Crain MD [Physician] - 1 Week Physician,Harriet Azevedo [Physician] - 1 Week Discharge Medications: New hydrocodone-acetaminophen 5-325 mg tablet 1 tab PO Q4-6H PRN (Reason: pain) Qty: 30 0RF Rx Instructions: Partial Fill upon patient request. oxycodone 5 mg tablet 5 mg PO Q8H PRN (Reason: pain) Qty: 30 0RF Rx Instructions: Partial Fill upon patient request. Continued tamsulosin 0.4 mg capsule 0.4 mg PO BEDTIME 90 Days Qty: 90 1RF azelastine 137 mcg (0.1 %) aerosol,spray 2 spray intranasal BID pantoprazole 40 mg tablet,delayed release (DR/EC) 40 mg PO DAILY@0630 Discharge Orders: Discharge Order (Routine); Ordered 03/21/24 Ordered By: Alfred Crain Diet: Advance to usual diet Activity on Discharge: No heavy lifting Stand Alone Forms: Patient Portal Discharge page Print Language: Mohawk Activity Restrictions/Additional Instructions: Ice to wound 20 minutes several times today and tomorrow. May shower in 2 days. Remove outside dressing only. Leave Steri-Strips intact. No strenuous activities Care Plan Goals: Continued convalescence Health Concerns: No acute concerns Plan of Treatment: Returned to baseline Assessment: Stable Discharge Date/Time: 03/21/24 14:46
--- OUTSIDE RECORDS SUMMARY | 2024-03-21 23:38 | XMS_ITS | Continuity of Care Document ---
Author Organization [facility] Address [address] [place] [address] ve [address] [place] [address]- Care Team Providers Care Vegetable Specker Name Role Phone Jade Redd DO Primary Care Physician [place] [facility] [place] - 01/17/[address] [place] [address]- Attending Physician: Jaqueline Rodas Admitting Physician: AdmJaqueline potter Referring Physician: AdmtrJaqueline Allergies, Adverse Reactions, Alerts No Known Allergies Medications Protonix 40 mg oral delayed release tablet 1 tablet = 40 mg, By Mouth, Daily, # 14 tablet, 0 Refills, Maintenance, 02/01/19 15:40:10 EDT, EC Tablet Start Date: 02/01/19 Status: Ordered Tylenol 325 mg oral tablet 650 mg, 2, tablet, By Mouth, Every 4 hours, Refills 0, Maintenance, 01/29/22 8:25:00 EDT, Partial fill upon patient request if the prescription is for a schedule II opioid drug. Start Date: 01/29/22 Status: Ordered Problem List Condition Confirmation Course Effective Dates Status H ealth Status Informant Colon, diverticulosis Confirmed Active H/O gastroesophageal reflux (GERD) Confirmed Active H/O gastroesophageal reflux (GERD) Confirmed Active Small bowel obstruction Confirmed Active Social History Social History Type Response Tobacco Use: 4 or less cigar ettes(less than 1/4 pack)/day in last 30 days. Sex Patient Care team information Care Team Personnel Name: Charito Cabello RN Position: S RN Member Role: Primary Care Nurse Name: Jade Redd DO Position: S Physician (General Medicine) Member Role: PCP Address: Address: [address] [place] [id number] Care Team Related Persons Name: MALA MONTALVO Address: home [address] [place] [id number]
--- OUTSIDE RECORDS SUMMARY | 2024-03-21 23:38 | XMS_ITS | Continuity of Care Document ---
Author Organization [facility] Address [address] [place] [address] [address] [place] [address]- Care Team Providers Care Senior Statistician Name Role Phone Jade Redd DO Primary Care Physician Encounter [facility] [place] Date(s): 02/21/22 - 03/23/[address] [place], [place] [address] Allergies, Adverse Reactions, Alerts No Known Allergies [...] Date: 01/29/22 Status: Ordered Problem List Condition Effective Dates Status Health Status Inform ant Colon, diverticulosis(Confirmed) Active H/O gastroesophageal reflux (GERD)(Confirmed) Active H/O gastroesophageal reflux (GERD)(Confirmed) Active Small bowel obstruction(Confirmed) Active Social History Social History Type Response Tobacco Use: 4 or less cigar ettes(less than 1/4 pack)/day in last 30 days. Sex Care Team Personnel Name: Jade Redd DO Address: [address] [place], [place] [address]
--- OUTSIDE RECORDS SUMMARY | 2024-03-21 23:38 | XMS_ITS | Continuity of Care Document ---
Author Organization [facility] Address [address] [place] [address]- Care Team Providers Care Electronic Gaming Device Supervisor Name Role Phone Jade Redd DO Primary Care Physician Encounter [facility] [place] Date(s): 01/27/22 - 01/29/[address] [address] Discharge Disposition: A-D/C Home Attending Physician: José Miguel Tripp MD Admitting Physician: José Miguel Tripp MD Referring Physician: José Miguel Tripp MD Allergies, Adverse Reactions, Alerts No Known Allergies [...] reflux (GERD)(Confirmed) Active Small bowel obstruction(Confirmed) Active Results Radiology Reports * Exam Date Time Procedure Performing Provider Status 01/27/22 8:40 PM XR Abdomen AP Small Bowel W/ contrast Josee Silva; Taran (Verified) Notes: (XR Abdomen AP Small Bowel W/ contrast) Reason For Exam: Distention RESULT: XR Abdomen AP Small Bowel with contrast XR Abdomen AP Small Bowel with contrast INDICATION: Reason: Distention; Clinical Question(s): Obstruction; Special Instructions: 8h after NGT isovue administration.; Order Comment: tried calling multiple times--no answer from rn--telma @1045hrs COMPARISON: CT of abdomen and pelvis from this morning. FINDINGS: 3 frontal views of the abdomen were obtained, labeled as 8 hour film. Oral contrast is seen in the ascending colon, transverse colon. Possible dilated small bowel loop in the right lower quadrant. There are multiple air-filled, borderline size small bowel loops in the right upper quadrant over the liver, new from this morning. IMPRESSION: Multiple air-filled borderline size small bowel loops in the right upper quadrant over the liver, new from this morning. The configuration is unusual. Please correlate and may consider CTto exclude internal hernia as needed. Oral contrast has reached the colon. A Izard message has been communicated via the [employer] system on 01/27/2022 9:02 PM, Message ID [id number]. WSN: [id number] Ordering Physician: Benji Berrios Dictated By: Geovanna Jarvis MD Dictated Date/Time: 01/27/22 9:02 pm Reviewed By: Geovanna Jarvis MD Signed By: Geovanna Jarvis MD Signed Date/Time: 01/27/22 9:02 pm Transcribed By: SINTIA Transcribed Date/Time: 01/27/22 8:55 pm * Exam Date Time Procedure Performing Provider Status 01/27/22 11:45 AM Chest Portable Jane Mccarthy; Aut h (Verified) Notes: (Chest Portable) Reason For Exam: NG Tube;Tube Placement RESULT: Chest Portable Chest Portable Reason: Tube Placement; NG Tube; Clinical Question(s): Tube Placement COMPARISON: CT abdomen and pelvis 01/27/2022 FINDINGS: LINES AND TUBES: NG tube within the stomach. LUNGS AND PLEURA: Bibasilar bandlike opacities likely atelectasis. No pleural effusion. No pneumothorax. HEART, MEDIASTINUM AND DOROTHY: Heart is normal in size. Aorta is somewhat tortuous. BONES AND SOFT TISSUES: No acute abnormality. IMPRESSION: NG tube within stomach. Bibasilar bandlike opacities likely atelectasis but WSN: [id number] Ordering Physician: Benji Berrios Dictated By: Kem Ceron MD Dictated Date/Time: 01/27/22 12:32 p Reviewed By: Kem Ceron MD Signed By: Kem Ceron MD Signed Date/Time: 01/27/22 12:32 pm Transcribed By: SINTIA Transcribed Date/Time: 01/27/22 12:31 pm Vital Signs Most recent to oldest [Reference Range]: 1 2 3 Height 186 cm (01/29/22 10:22 AM) 186 cm (01/29/22 6:43 AM) 186 cm (01/29/22 3:04 AM) Weight 93 kg (01/27/22 6:00 AM) Oxygen Saturation [94-100 %] 95 % (01/29/22 10:22 AM) 95 % (01/29/22 6:43 AM) 96 % (01/29/22 3:04 AM) Pulse Rate [55-90 bpm] 61 bpm (01/29/22 10:22 AM) 65 bpm (01/29/22 6:43 AM) 61 bpm (01/29/22 3:04 AM) Body Mass Index [18.5-24.99] 26.88 *H* (01/27/22 6:00 AM) Blood Pressure [90-138/55-84 mm Hg] 134/66mm Hg (01/29/22 10:22 AM) 127/74mm Hg (01/29/22 6:43 AM) 123/63mm Hg (01/29/22 3:04 AM) Respiratory Rate [16-30 br/min] 18 br/min (01/29/22 10:22 AM) 18 br/min (01/29/22 6:43 AM) 18 br/min (01/29/22 3:04 AM) Temperature [96.8-100.4 DegF] 98.5 DegF (01/29/22 10:22 AM) 98.1 DegF (01/29/22 6:43 AM) 98.4 DegF (01/29/22 3:04 AM) Mode of Delivery (Oxygen) Room air (01/29/22 10:22 AM) Room air (01/29/22 6:43 AM) Room air (01/29/22 3:04 AM) Blood pressure sites Arm, left (01/29/22 10:22 AM) Arm, left (01/29/22 6:43 AM) Arm, left (01/29/22 3:04 AM) Temperature Route Oral (01/29/22 10:22 AM) Oral (01/29/22 6:43 AM) Oral (01/29/22 3:04 AM) Dry Weight 93 kg (01/27/22 6:00 AM) Weight Obtained Via Patient/family state d (01/27/22 6:00 AM) Social History Social History Type Response Tobacco Use: 4 or less cigar ettes(less than 1/4 pack)/day in last 30 days. Sex
--- OUTSIDE RECORDS SUMMARY | 2024-03-21 23:38 | XMS_ITS | Continuity of Care Document ---
Author Organization [facility] Address [address] [place] [address] [address] [place] [address]- Care Team Providers Care Underwriting Assistant Name Role Phone Jade Redd DO Primary Care Physician ( [phone] [place] [facility] [place] 10/04/23 - 01/17/[address] [place] [address]- us Attending Physician: Thanh Luu MD Referring Physician: Lindsay Kelley MD Allergies, Adverse Reactions, Alerts No Known [...] (General Medicine) Member Role: PCP Address: Address: [address] [place] [address]- Care Team Related Persons Name: MALA MONTALVO Address: home [address] [place] [address]
--- OUTSIDE RECORDS SUMMARY | 2024-03-21 23:38 | XMS_ITS | Continuity of Care Document ---
Author Organization [facility] Address [address] [place] [address]- Care Team Providers Care Twisting Frame Operator Name Role Phone Jade Redd DO Primary Care Physician ( [phone] [place] [facility] [place] 09/11/23 - 09/11/[address] [address] Attending Physician: Lindsay Kelley MD Allergies, Adverse Reactions, [...] (General Medicine) Member Role: PCP Address: Address: [address] [place] [id number] Care Team Related Persons Name: MALA MONTALVO Address: home [address] [place] [address]
== END 2024-03-21 14:46 | disposition home or self-care (01) | DRG 331 ==
LOC: HO.SSSA 08:59 → HO.S3 09:12
PROVIDERS: Admitting Provider Physician Assistant Surgical; PCP Internal Medicine; Visit Provider Surgery
PROC: 0DSB0ZZ Reposition Ileum, Open Approach (ICD-10-PCS; CPT 44620; principal; 2024-03-19 07:30)
DX: Z43.2 Encounter for attention to ileostomy (principal); F17.210 Nicotine dependence, cigarettes, uncomplicated; L92.3 Foreign body granuloma of the skin and subcutaneous tissue; Z71.6 Tobacco abuse counseling; Z79.899 Other long term (current) drug therapy
CPT/HCPCS: 36415; 80053; 82565; 88304; J0131; J0690; J1100; J1170; J1650; J2270; J2371; J2405; J2704; J2795; J3010; J7120

== ENCOUNTER → 2024-03-19 08:58 | Outpatient (BNV) | payer MEDICARE, SELFPAY | PROVIDERS: Admitting Provider Physician Assistant Surgical; Visit Provider Surgery | DX: Z98.890 Other specified postprocedural states (principal) | CPT/HCPCS: 10120; 44625; 99024 ==

== ENCOUNTER 2024-03-31 11:39 | Outpatient (AMB) | payer OTHER, MEDICARE, SELFPAY ==
--- NOTE | 2024-03-31 11:41 | MHC.OFFVIS ---
Intake Visit Reasons: S/P ileosotomy reversal Intake Note: Patient here s/p 1. exc stitch granuloma- upper midline 2. Right lower quadrant ileostomy reversal. Reports incisions healing well. Patient c/o: no concerns. No longer taking rx pain meds. Drafter Construction Required: No Accompanied by: Self / Same As Patient Allergies No Known Allergies Allergy (Verified 03/31/24 11:43) HPI Comments Details: Patient presents for follow-up. He is doing quite well. He is tolerating a diet. Having regular bowel habits. He had a bout of constipation of the weekend but otherwise doing well. He has no incisional issues or complaints [facility] Medical History (Updated 03/29/24 @ 00:01 by Walt Marrufo) Back pain Seasonal allergic rhinitis Palpitations GERD (gastroesophageal reflux disease) Diverticulitis Nephrolithiasis Splenic cyst Surgical History (Updated 03/31/24 @ 12:52 by Alfred Crain MD) Postop check Status post reversal of ileostomy (03/19/24) Hx of cystoscopy H/O colonoscopy History of surgery History of left inguinal hernia repair Hx of right inguinal hernia repair Diverticulitis of sigmoid colon (12/12/23) Social History Household Members: Spouse Housing: House Are you a primary care program director to a significant other at home: No Do you presently have visiting nurse or other home services: No Comment: counts correct Patient Tobacco Use Status: Current everyday Tobacco user Tobacco use type: Cigar Cigarettes Per Day: 10 Years Smoked: 50 service: No Physical Exam GI Other: Abdomen is soft. Incision clean dry and intact healing well Assessment & Plan Assessment & Plan (1) Postop check: Code(s): Z09 - Encounter for follow-up examination after completed treatment for conditions other than malignant neoplasm Category: Surgical (2) Status post reversal of ileostomy: Code(s): Z98.890 - Other specified postprocedural states Category: Surgical Plan Patient was given local instructions, and will otherwise follow-up p.r.n.. All questions answered. Coding Level of Care Code Global (12354) Diagnoses Postop check Z09 Status post reversal of ileostomy Z98.890
== END 2024-03-31 11:48 | disposition home or self-care (01) ==
PROVIDERS: PCP Internal Medicine; Visit Provider Surgery
DX: Z09 Encounter for follow-up examination after completed treatment for conditions other than malignant neoplasm (principal); Z98.890 Other specified postprocedural states
CPT/HCPCS: 99024

== ENCOUNTER → 2024-03-31 11:39 | Outpatient (BNVA) | payer OTHER, MEDICARE, SELFPAY | PROVIDERS: PCP Internal Medicine; Visit Provider Surgery ==

== ENCOUNTER 2024-04-03 11:25 | Outpatient (AMB) | payer MEDICARE, SELFPAY ==
--- NOTE | 2024-04-03 11:34 | MHC.OFFVIS ---
Intake Visit Reasons: Med review(Missed US) Intake Note: Patient is Present for Follow Up Med Review- Tamsulosin Urology Medication:Tamsulosin Antibiotic Allergies: None Blood Thinners:None Patient [place] [facility] [place] but patient states that he was unaware of this US Appt States that he has received no call in regards to booking appt for Ultrasound [employer] Artistic Director Required: No Accompanied by: Self / Same As Patient Allergies No Known Allergies Allergy (Verified 04/03/24 11:35) Medication List - Last Reconciled 04/03/24 by Thomas Sanon MD azelastine 2 sprays intranasal BID pantoprazole 40 mg PO DAILY@629 terazosin 5 mg PO BEDTIME 90 days HPI Comments Details: Jose Alejandro is a pleasant male. He is a patient of Dr. Kelley. He is seen for the following urologic conditions - nephrolithiasis Has been on tamsulosin for bladder emptying Did not receive ultrasound Continue with Imaging surveillance Switch to terazosin for bladder emptying Nephrolithiasis Recurrent Imaging - 10/19 CT 1.2 x 0.9 cm calculus impacted in the right ureterovesical junction, left stone 8 mm - bilateral small bladder diverticulum Intervention - 11/19 right ureteroscopy with laser lithotripsy Stone composition - 11/19 Calcium Oxalate Dihydrate (Weddellite) 15% Calcium Oxalate Monohydrate (Whewellite) 70% Carbonate Apatite (Dahllite) 15% PFSH Medical History Back pain Seasonal allergic rhinitis Palpitations GERD (gastroesophageal reflux disease) Diverticulitis Nephrolithiasis Splenic cyst Surgical History Postop check Status post reversal of ileostomy (03/19/24) Hx of cystoscopy H/O colonoscopy History of surgery History of left inguinal hernia repair Hx of right inguinal hernia repair Diverticulitis of sigmoid colon (12/12/23) Social History Household Members: Spouse Housing: House Are you a primary home health caregiver to a significant other at home: No Do you presently have visiting nurse or other home services: No Comment: counts correct Patient Tobacco Use Status: Current everyday Tobacco user Tobacco use type: Cigar Cigarettes Per Day: 10 Years Smoked: 50 service: No Review of Systems Const Denies chills and Denies fever(s) Card Reports no additional complaints and Denies syncope Resp Denies cough GI Denies abdominal pain and Denies heartburn Reports as per HPI and Denies change in libido Neuro Denies syncope Psych Denies change in libido Endo Denies change in libido Physical Exam Const General: cooperative, healthy appearing, comfortable and no acute distress Orientation/consciousness: patient oriented x3 HEENT Face and sinus: Yes normal facial exam Mouth: moist mucous membranes Neck Neck: Yes normal visual inspection, Yes full ROM and Yes trachea midline Chest Chest palpation & inspection: normal inspection of the chest Resp Effort & Inspection: normal respiratory effort, able to speak in complete sentences and no respiratory distress GI Inspection: Yes normal to inspection Back/Spine/Pelvis Cervical Spine: normal cervical lordosis Thoracic/Lumbar Spine: thoracic and lumbar spine normal to inspection Skin General skin exam: no rashes or lesions noted Neuro General: patient oriented x3, gait normal, tone normal and moves all extremities Extrem General: Yes normal to inspection and Yes capillary refill normal Assessment & Plan Assessment & Plan (1) Nephrolithiasis: Code(s): N20.0 - Calculus of kidney Category: Medical (2) Bladder outlet obstruction: Code(s): N32.0 - Bladder-neck obstruction Category: Medical Plan Trial terazosin Six-month follow-up Orders: Orders US renal BI 6 Months N20.0 - Calculus of kidney Medications: New terazosin 5 mg PO BEDTIME 90 days 90 caps 1RF N20.0 - Calculus of kidney, N40.1 - Benign prostatic hyperplasia with lower urinary tract symptoms, R35.0 - Frequency of micturition Discontinued tamsulosin Discontinued Reason: Doctor's Order 0.4 mg PO BEDTIME 90 days 90 caps 1RF N20.0 - Calculus of kidney Patient Instructions: Imaging studies, laboratory and physical exam results were discussed and reviewed in detail. No major barriers to patient understanding were identified. An opportunity to ask questions regarding the treatment plan was provided. All questions were answered. The patient expressed understanding and agreement with the above treatment plan. The patient is aware they should contact our office by phone for worsening of their current condition or the appearance of new urologic symptoms. Compliance is encouraged with any medications and followup testing that is ordered. It is a privilege to participate in the urologic care of your patient. If you have any questions or concerns regarding treatment for the above conditions, or other urologic issues, please do not hesitate to contact me. The office telephone contact is [phone]. This note is constructed using voice recognition software. While every effort has been made to ensure accuracy content manager errors may have been included. Yours sincerely, Dr Thomas Sanon MD, [facility] - Urology Providers of Expert, Compassionate Care for the Genitourinary System Coding Level of Care Code Est Pt Level 4 (82045) Diagnoses Nephrolithiasis N20.0 Bladder outlet obstruction N32.0
== END 2024-04-03 11:48 | disposition home or self-care (01) ==
PROVIDERS: PCP Internal Medicine; Visit Provider Urology
DX: N20.0 Calculus of kidney (principal); N32.0 Bladder-neck obstruction
CPT/HCPCS: 99214

== ENCOUNTER → 2024-04-03 11:25 | Outpatient (BNVA) | payer MEDICARE, SELFPAY | PROVIDERS: PCP Internal Medicine; Visit Provider Urology | DX: N20.0 Calculus of kidney (principal); N40.1 Benign prostatic hyperplasia with lower urinary tract symptoms; N32.0 Bladder-neck obstruction; R35.0 Frequency of micturition; Z79.899 Other long term (current) drug therapy | CPT/HCPCS: 99212 ==

== ENCOUNTER 2024-10-08 09:13 | Outpatient (AMB) | payer MEDICARE, SELFPAY ==
--- NOTE | 2024-10-08 09:15 | MHC.OFFVIS ---
Intake Visit Reasons: colon issue Allergies No Known Allergies Allergy (Verified 04/03/24 11:35) HPI Comments Details: Patient presents for follow-up. He has had episodic diarrhea over the last roughly 2 weeks time. Symptoms improved and then recurred and have currently improved again. He was concerned as was his that this may be recurrent diverticulitis. Aside from occasional cramping he is not having any significant abdominal pain similar to his diverticulitis episodes. He is able to stay hydrated and eating meals. Patient denies any other GI illness contacts. No new meds. He has not been on any antibiotics. No recent foreign travel. Patient was well known to me. Chart was reviewed and patient evaluated [facility] Medical History Back pain Seasonal allergic rhinitis Palpitations GERD (gastroesophageal reflux disease) Diverticulitis Nephrolithiasis Splenic cyst Surgical History Postop check Status post reversal of ileostomy (03/19/24) Hx of cystoscopy H/O colonoscopy History of surgery History of left inguinal hernia repair Hx of right inguinal hernia repair Diverticulitis of sigmoid colon (12/12/23) Social History Household Members: Spouse Housing: House Are you a primary resident care aide to a significant other at home: No Do you presently have visiting nurse or other home services: No Comment: counts correct Patient Tobacco Use Status: Current everyday Tobacco user Tobacco use type: Cigar Cigarettes Per Day: 10 Years Smoked: 50 service: No Physical Exam GI Other: Abdomen soft, incisions were healed. Benign. No evidence of any guarding, rebound, or rigidity. Assessment & Plan Assessment & Plan (1) Diarrhea: Code(s): R19.7 - Diarrhea, unspecified Category: Surgical Plan At present, patient states his symptoms have improved. We will continue conservative therapy. He has been encouraged to stay hydrated. Should his symptoms progress or worsen he has been instructed to contact the office. He will otherwise follow-up p.r.n.. All questions answered. Coding Level of Care Code Est Pt Level 4 (76258) Diagnoses Diarrhea R19.7
--- OUTSIDE RECORDS SUMMARY | 2024-10-08 10:41 | XMS_ITS | Clinical Summary ---
Author Organization [employer] [facility] Address [address] [place] [address] Care Team Providers Care Waterproof Bag Cutting Machine Operator Name Role Phone Unavailable Primary Care Provider Unavailabl e Social History Tobacco Use Types Packs/Day Years Used Date Smoking Tobacco: Never Assessed Sex and Gender Information Value Date Recorded Sex Assigned at Not on file Gender Identity Not on file Sexual Orientation Not on file Plan of Treatment Not on file
== END 2024-10-08 09:22 | disposition home or self-care (01) ==
LOC: HO.HGS 09:14
PROVIDERS: PCP Internal Medicine; Visit Provider Surgery
DX: R19.7 Diarrhea, unspecified (principal)
CPT/HCPCS: 99214

== ENCOUNTER → 2024-10-08 09:13 | Outpatient (BNVA) | payer MEDICARE, SELFPAY | PROVIDERS: PCP Internal Medicine; Visit Provider Surgery | DX: R19.7 Diarrhea, unspecified (principal) | CPT/HCPCS: 99212 ==

== ENCOUNTER 2024-11-09 13:26 | Outpatient (AMB) | payer MEDICARE, SELFPAY ==
--- NOTE | 2024-11-09 13:26 | MHC.OFFVIS ---
Vital Signs 11/09/24 13:34 Weight 187 lb BP 143/89 H Blood Pressure Location Rt brachial Position Sitting Pulse 125 H Intake Visit Reasons: hard area 4 inches by 2 inches at surgical site Intake Note: Patient scheduled today's visit due to pain along incision scar. HX: Right lower quadrant ileostomy reversal~ 03-19-2024. Skin feels hard. Denies oozing, pain. Irritated when pants rub on it. [employer] Scullion Required: No Accompanied by: Self / Same As Patient Allergies No Known Allergies Allergy (Verified 11/09/24 13:27) Medication List - Last Reconciled 11/10/24 by Alfred Crain MD azelastine 2 sprays intranasal BID cephalexin 500 mg PO TID pantoprazole 40 mg PO DAILY@629 terazosin 5 mg PO BEDTIME 90 days HPI Comments Details: Patient has known to me from the distant past. He is complaining of pain and swelling along his lower abdominal wall. This has been going on for a few days. He has otherwise been able to tolerate a diet and having loose stool every late afternoon evening mixed with a regular bowel habits. This is more related to his abdominal wall and not his GI tract. Patient was not been on any recent antibiotics that he can recall. [facility] Medical History Back pain Seasonal allergic rhinitis Palpitations GERD (gastroesophageal reflux disease) Diverticulitis Nephrolithiasis Splenic cyst Surgical History Postop check Status post reversal of ileostomy (03/19/24) Hx of cystoscopy H/O colonoscopy History of surgery History of left inguinal hernia repair Hx of right inguinal hernia repair Diverticulitis of sigmoid colon (12/12/23) Social History Household Members: Spouse Housing: House Are you a primary primary care physician to a significant other at home: No Do you presently have visiting nurse or other home services: No Comment: counts correct Patient Tobacco Use Status: Current everyday Tobacco user Tobacco use type: Cigar Cigarettes Per Day: 10 Years Smoked: 50 service: No Physical Exam Vital Signs: Last Vital Signs Pulse 125 H 11/09/24 13:34 BP 143/89 H 11/09/24 13:34 GI Other: Patient has suprapubic cellulitis an area of induration. Under sterile technique, this was aspirated and was a dry tap. Abdomen otherwise soft, benign Office Procedures FNA Biopsy FNA Biopsy Details: Under sterile technique, was Betadine prepped, patient underwent aspiration of his lower abdominal wall fullness/cellulitic area. This is to rule out abscess. It was a dry tap. Dressing applied. Well-tolerated. FNA Biopsy 1: [id number] Biopsy, 1st lesion w/o image All charges added?: Procedure code (CPT) selection complete Assessment & Plan Assessment & Plan (1) Diarrhea: Code(s): R19.7 - Diarrhea, unspecified Category: Surgical Plan: Patient was been given local instructions including warm compresses, he will begin a script for antibiotics, he will see me in few days' time for follow-up or p.r.n.. Stool also be tested for C diff. All questions answered. (2) Abdominal wall cellulitis: Code(s): L03.311 - Cellulitis of abdominal wall Category: Surgical Plan: See above Orders: Orders CDiff Gene PCR 11/09/24 R19.7 - Diarrhea, unspecified Biopsy - Fine needle aspiration Today L03.311 - Cellulitis of abdominal wall Medications: New cephalexin 500 mg PO TID 30 caps 0RF Coding Level of Care Code Est Pt Level 4 (01059) Diagnoses Diarrhea R19.7 Abdominal wall cellulitis L03.311 CPT Codes FNA Biopsy - FNA Biopsy 1: 63210-YRS Biopsy, 1st lesion w/o image ([id number])
[2024-11-09 13:34] VITALS: BP 143/89; PULSE 125
--- OUTSIDE RECORDS SUMMARY | 2024-11-09 15:25 | XMS_ITS | Clinical Summary ---
Author Organization [employer] [facility] Address [address] [place] [address] Care Team Providers Care Bobbin Cleaner Name Role Phone Unavailable Primary Care Provider Unavailabl e Social History Tobacco Use Types Packs/Day Years Used Date Smoking Tobacco: Never Assessed Sex and Gender Information Value Date Recorded Sex Assigned at Not on file Gender Identity Not on file Sexual Orientation Not on file Plan of Treatment Not on file
== END 2024-11-09 13:58 | disposition home or self-care (01) ==
LOC: HO.HGS 13:26
PROVIDERS: PCP Internal Medicine; Visit Provider Surgery
DX: R19.7 Diarrhea, unspecified (principal); L03.311 Cellulitis of abdominal wall
CPT/HCPCS: 10160; 99214

== ENCOUNTER 2024-11-10 12:10 | Outpatient (REF) | payer MEDICARE, SELFPAY ==
[2024-11-10 13:03] LABS: CDiff Gene PCR POSITIVE (Negative)
[2024-11-10 14:14] LABS: CDIFF Internal ctrl Dots and bkg OK (V); CDiff Toxin Negative (Negative)
--- OUTSIDE RECORDS SUMMARY | 2024-11-10 14:54 | XMS_ITS | Clinical Summary ---
Author Organization [employer] [facility] Address [address] [place] [address] Care Team Providers Care Slot Key Person Name Role Phone Unavailable Primary Care Provider Unavailabl e Social History Tobacco Use Types Packs/Day Years Used Date Smoking Tobacco: Never Assessed Sex and Gender Information Value Date Recorded Sex Assigned at Not on file Gender Identity Not on file Sexual Orientation Not on file Plan of Treatment Not on file
== END 2024-11-10 12:11 | disposition home or self-care (01) ==
LOC: HO.LNP 12:10
PROVIDERS: PCP Internal Medicine; Visit Provider Surgery
DX: L03.311 Cellulitis of abdominal wall (principal); R19.7 Diarrhea, unspecified; Z87.19 Personal history of other diseases of the digestive system; Z98.890 Other specified postprocedural states
CPT/HCPCS: 10160; 87324; 87493; 99212

== ENCOUNTER 2025-04-19 15:05 | Outpatient (AMB) | payer MEDICARE, SELFPAY ==
--- NOTE | 2025-04-19 15:16 | MHC.OFFVIS ---
Vital Signs 04/19/25 15:24 Height 6 ft 1 in Weight 207 lb BMI 27.3 BP 140/73 H Blood Pressure Location Lt brachial Position Sitting Pulse 84 Intake Visit Reasons: Ileostomy Reversal/Incision drainage Intake Note: Patient scheduled today c/o drainage from ileostomy reversal incision. Hx of previous surgery w/ Dr. Crain on 03-19-2024. 1. Excision of stitch granuloma upper midline incision 2. Right lower quadrant ileostomy reversal, ? protruding stitch, draining. CHANELL 11-09-2024. Allergies No Known Allergies Allergy (Verified 11/09/24 13:27) HPI HPI Ileostomy Reversal/Incision drainage: Details: He had sigmoid resection last year along with diverting loop ileostomy with Dr. Crain last year. He had the ileostomy reversed last February, He had this persistent small hypergranulation tissue on the low midline incision. He says this continues to have some scanty drainage. A 2nd area had healed completely above this He wants this persistent area of drainage checked. He denies any fever. He denies any redness. He just says that there continues to be some frequent scanty drainage from this small ?hole? on his skin on the midline incision. [facility] Medical History (Updated 04/19/25 @ 15:34 by Todd Mccarthy MD) Stitch granuloma Back pain Seasonal allergic rhinitis Palpitations GERD (gastroesophageal reflux disease) Diverticulitis Nephrolithiasis Splenic cyst Surgical History Postop check Status post reversal of ileostomy (03/19/24) Hx of cystoscopy H/O colonoscopy History of surgery History of left inguinal hernia repair Hx of right inguinal hernia repair Diverticulitis of sigmoid colon (12/12/23) Social History Household Members: Spouse Housing: House Are you a primary home care consultant to a significant other at home: No Do you presently have visiting nurse or other home services: No Comment: counts correct Patient Tobacco Use Status: Current everyday Tobacco user Tobacco use type: Cigar Cigarettes Per Day: 10 Years Smoked: 50 service: No Review of Systems Const Denies chills and Denies fever(s) Card Denies chest pain, Denies dyspnea and Denies dyspnea on exertion Resp Denies cough, Denies dyspnea and Denies dyspnea on exertion GI Denies hematochezia and Denies change in bowel habits Denies hematuria and Denies difficulty urinating Musc Denies back pain and Denies limited range of motion Neuro Denies focal weakness and Denies convulsions Psych Denies depression and Denies mood swings Physical Exam Vital Signs: Last Vital Signs Pulse 84 04/19/25 15:24 BP 140/73 H 04/19/25 15:24 BMI result Body Mass Index 27.3 Const General: comfortable and no acute distress Orientation/consciousness: patient oriented x3 Neck Neck: Yes no lymphadenopathy Resp Auscultation: clear to auscultation bilaterally Cardio Rhythm: regular rhythm GI Other: Low midline incision -there is note of a small opening/sinus with what appears to be hypergranulation tissue with scanty drainage. There is no induration or skin redness Palpation (GI): Soft to palpation, nontender and no guarding Neuro General: patient oriented x3 Office Procedures Cauterization - Skin lesions Skin Cauter Details: I probed the sinus with a Q-tip. There appeared to be hypergranulation tissue within this small cavity. I then used multiple silver nitrate sticks to cauterize this area. He tolerated procedure well. There were no immediate complications. Destruction: 24184- Chemical Cautery, Granulation Tissue Assessment & Plan Assessment & Plan (1) Stitch granuloma: Code(s): T81.89XA - Other complications of procedures, not elsewhere classified, initial encounter Category: Medical Plan: He has this persistent sinus at the low midline incision that is likely to be a stitch granuloma. I cauterized this area with silver nitrate sticks . I applied dressings. I told him that if this persists after a month or 2, he should come back to the office to be re-evaluated. He is comfortable with the plan. Coding Level of Care Code Est Pt Level 3 (80732) Diagnoses Stitch granuloma T81.89XA CPT Codes Skin Cauter - Destruction: 71505- Chemical Cautery, Granulation Tissue ([id number])
[2025-04-19 15:24] VITALS: BP 140/73; PULSE 84; BMI 27.3
== END 2025-04-19 15:33 | disposition home or self-care (01) ==
LOC: HO.HGS 15:05
PROVIDERS: PCP Internal Medicine; Visit Provider Surgery
DX: T81.89XA Other complications of procedures, not elsewhere classified, initial encounter (principal)
CPT/HCPCS: 17250; 99213

== ENCOUNTER → 2025-04-19 15:05 | Outpatient (BNVA) | payer MEDICARE, SELFPAY | PROVIDERS: PCP Internal Medicine; Visit Provider Surgery | DX: L92.9 Granulomatous disorder of the skin and subcutaneous tissue, unspecified (principal); T81.89XA Other complications of procedures, not elsewhere classified, initial encounter | CPT/HCPCS: 17250; 99212 ==